=== PATIENT | male | born 1945 | race Caucasian/White ===

== ENCOUNTER 2016-07-02 05:59 | Inpatient (IN) | payer OTHER, MEDICARE ==
[2016-06-05 10:57] VITALS: BMI 33.0
--- NOTE | 2016-06-05 11:52 | PAT Medication Instructions ---
Service Date Jun 05, 2016. Current Home Medication List Albuterol Sulfate (Proair Hfa), 2 PUFFS INH QID PRN for SOB/Wheezing Atenolol (Atenolol), 1 TAB PO QAM Citalopram (Citalopram Hydrobromide), 40 MG PO QAM Clonazepam (Klonopin), 0.5 MG PO BID Dabigatran Etexilate Mesylate (Pradaxa), 150 MG PO BID Docusate Sodium (Stool Softener), 4 CAP PO HS Eye Drops (Eye Drops), 1 DROP OPB BID Ydqupfbjvxg-Oxcexqsftaf-Yzm C- (Glucosamine Chondroitin), 1 TAB PO BID Lidocaine (Lidoderm Patch 5%), 1 APPLN TOP UD Mirabegron (Myrbetriq Er), 1 TAB PO QAM Olopatadine Hcl (Patanol 0.1% Oph), 1 DROP OP BID Oxycodone HCl (Oxycodone HCl), 2 TAB PO QAM PRN for Pain Pantoprazole (Protonix), 40 MG PO QAM Simvastatin (Simvastatin), 20 MG PO QPM [Thermacare Patch ], 1 PATCH TOP UD PRN for Pain Medication Instructions For Your Scheduled Surgery Dabigatran Etexilate Mesylate (Pradaxa), 150 MG PO BID (patient will check with director enterprise data architecture for instructions) - Hold the following medications 7-10 days prior to surgery: Pduvdnjxfpe-Jvdgtxbuyep-Hkn C- (Glucosamine Chondroitin), 1 TAB PO BID - Hold the following medications the morning of surgery: Thermacare Patch 1 PATCH TOP UD PRN for Pain Mirabegron (Myrbetriq Er), 1 TAB PO QAM Lidocaine (Lidoderm Patch 5%), 1 APPLN TOP UD - Take the following medications the morning of surgery with a sip of water: Pantoprazole (Protonix), 40 MG PO QAM Oxycodone HCl (Oxycodone HCl), 2 TAB PO QAM PRN for Pain (can take up to four hours prior to surgery if needed) Olopatadine Hcl (Patanol 0.1% Oph), 1 DROP OP BID Eye Drops (Eye Drops), 1 DROP OPB BID Clonazepam (Klonopin), 0.5 MG PO BID Atenolol (Atenolol), 1 TAB PO QAM Citalopram (Citalopram Hydrobromide), 40 MG PO QAM Albuterol Sulfate (Proair Hfa), 2 PUFFS INH QID PRN for SOB/Wheezing (bring with you to hospital on day of surgery) - Take the following medications as scheduled the night before surgery: Simvastatin (Simvastatin), 20 MG PO QPM Olopatadine Hcl (Patanol 0.1% Oph), 1 DROP OP BID Eye Drops (Eye Drops), 1 DROP OPB BID Docusate Sodium (Stool Softener), 4 CAP PO HS Clonazepam (Klonopin), 0.5 MG PO BID Albuterol Sulfate (Proair Hfa), 2 PUFFS INH QID PRN for SOB/Wheezing If you have any questions please call us at [phone] or [phone] ( Karin) or [phone]
--- NOTE | 2016-06-05 12:19 | DIAGNOSTIC IMAGING REPORT ---
TWO VIEW CHEST CLINICAL HISTORY: Preoperative examination. FINDINGS: PA and lateral chest radiographs are compared to study dated 05/27/2014. The heart is top normal for projection. There is atherosclerotic calcification of the thoracic aorta. Chronic interstitial thickening is unchanged. The lungs and pleural spaces are clear. There is no pneumothorax. The skeletal structures are osteopenic. The bony thorax appears intact. Fusion hardware is noted in the lumbar spine. IMPRESSION: No active disease in the chest. Electronically signed by: Kevan Castellano M.D. 06/05/2016 12:17 PM Dictated Date/Time: 06/05/2016 12:17 PM
[2016-06-05 12:46] LABS: URINE APPEARANCE CLEAR (CLEAR); URINE BILIRUBIN NEG (NEG); URINE COLOR YELLOW; URINE NITRITE NEG (NEG); URINE PH 6.5 (4.5-7.5); URINE SPECIFIC GRAVITY 1.017 (1.000-1.030); UROBILINOGEN NEG (NEG)
[2016-06-05 12:51] LABS: MANUAL MICROSCOPIC REQUIRED? NO; REVIEW REQ? NO
--- NOTE | 2016-06-18 12:32 | HISTORY & PHYSICAL EXAMINATION ---
DATE OF ADMISSION: 06/24/2016 HISTORY OF PRESENT ILLNESS: The patient is well known to us as he has undergone prior lumbar surgery by Dr. Merida. He continues to struggle with bilateral SI joint pain. He reports right is worse than left. He did obtain a significant improvement after his SI joint injections, but has now worn off. PAST MEDICAL HISTORY: Significant for aFib, arthritis, stroke, hypertension. PAST SURGICAL HISTORY: Significant for prostate surgery and lumbar surgeries. ALLERGIES: INCLUDE CODEINE AND IVP DYE. MEDICATIONS: Not listed. SOCIAL HISTORY: He is single. Denies alcohol. Former tobacco user. FAMILY HISTORY: Significant for none listed. REVIEW OF SYSTEMS: Significant for leg swelling, weight gain, itchy, skin rash, hearing loss, constipation, difficulty walking, frequent urination. PHYSICAL EXAMINATION: VITAL SIGNS: 5 feet 4 inches, 188 pounds. HEENT: Speech appropriate. CARDIOPULMONARY: No gross abnormalities. ABDOMEN: Soft, nontender. GENITOURINARY: Deferred. NEUROLOGIC: Cranial nerves II-XII grossly intact. MUSCULOSKELETAL: He has a well-healed lumbar incision. He is exquisitely tender to palpation over the bilateral SI joints. No gross neurological deficits to the bilateral lower extremities. ASSESSMENT: Bilateral sacroiliitis, right greater than left. PLAN: At this point in time, he has had a successful trial of SI joint injections. He wants to proceed with surgical SI joint fusion. Will proceed with a right SI joint fusion as this is where most of his pain is. Risks, benefits, pros, cons, and alternatives were outlined in detail. He would like to proceed with above-mentioned surgical planning.
[2016-07-02] VITALS (8 sets, daily range): BP systolic 101–164; BP diastolic 66–95; PULSE 59–80; TEMP 36.7–37; O2SAT 92–96; Ht 162.6 cm; Wt 89.0 kg
[~2016-07-02] VITALS: Ht 162.6 cm; Wt 89.0 kg
[~2016-07-02 05:59] MED LIST: ALBU1AER9 INH; CEFAZOLIN 2000 MG/60 ML D5W 60 ML IV SCH; CITA40TA4 PO; CLON0.5T3 PO; DABI150C PO; DOCU100C PO; EYED OPB; GLUCTAB7 PO; LACTATED RINGER'S 1000ML 1,000 ML IV SCH; MIRA1TAB3 PO; NF656 TOP; OLOP0.1S3 OP; OMEG10007 PO; OXYC-609 PO; PANT1TAB48 PO; SIMV-151 PO; TNR50 PO; [UNRECOGNIZED DRUG - OTHER] TOP
[2016-07-02] MEDS ORDERED: LACTATED RINGER'S 1000ML 1,000 ML IV SCH (06:00)
[2016-07-02] MEDS ORDERED: CEFAZOLIN 2000 MG/60 ML D5W 60 ML IV SCH (06:00)
[2016-07-02] MEDS ORDERED: ATROPINE SULFATE 0.1 MG/ML 5ML SYR IV PRN (07:00)
[2016-07-02] MEDS ORDERED: EpHEDrine SULFATE INJ 50 MG/ML AMP IV PRN (07:00)
[2016-07-02] MEDS ORDERED: ONDANSETRON INJ 2 MG/ML 2 ML VIAL IV PRN ×2 (07:00→08:45)
[2016-07-02] MEDS ORDERED: LIDOCAINE HCL 2% 2 ML VIAL (20MG/ML) ONE (07:04)
[2016-07-02] MEDS ORDERED: ROCURONIUM BROMIDE 10 MG/ML 5 ML VIAL ONE ×2 (07:04→10:20)
[2016-07-02] MEDS ORDERED: MIDAZOLAM HCL 1 MG/ML 2ML VIAL ONE (07:04)
[2016-07-02] MEDS ORDERED: NEOSTIGMINE METHYLSULFATE 5 MG/5 ML SYR ONE (07:04)
[2016-07-02] MEDS ORDERED: DEXAMETHASONE SOD INJ 4 MG/ML VIAL ONE ×2 (07:04→08:30)
[2016-07-02] MEDS ORDERED: FENTANYL CITRATE INJ 50 MCG/1 ML 2 ML VIAL ONE (07:04)
[2016-07-02] MEDS ORDERED: ONDANSETRON INJ 2 MG/ML 2 ML VIAL ONE ×2 (07:04→10:26)
[2016-07-02] MEDS ORDERED: PROPOFOL IV EMULSION 10 MG/ML 20 ML VIAL IV ONE (07:04)
[2016-07-02] MEDS ORDERED: GLYCOPYRROLATE INJ 0.2 MG/ML VIAL ONE (07:04)
[2016-07-02] MEDS ORDERED: BUPIVACAINE/EPINEPHRINE 0.5% MPF 1:200,000 30 ML VIAL ONE (07:12)
[2016-07-02] MEDS ORDERED: BACITRACIN 50000 UNIT VIAL ONE (07:13)
[2016-07-02] MEDS ORDERED: ALBUT/IPRATROP 3MG/0.5MG NEB 3 ML VIAL INH PRN (07:15)
--- NOTE | 2016-07-02 07:26 | History & Physical Bridge Note ---
H&P Re-Evaluation Bridge Note: I have examined the patient, reviewed the History & Physical and in the interval since the performance of the History & Physical I have noted the following changes of clinical significance: No changes noted
--- NOTE | 2016-07-02 07:38 | History & Physical Bridge Note ---
H&P Re-Evaluation Bridge Note: I have examined the patient, reviewed the History & Physical and in the interval since the performance of the History & Physical I have noted the following changes of clinical significance: Left SI joint fusion
[2016-07-02] MEDS ORDERED: SODIUM CHLORIDE 0.9% PF 50 ML VIAL ONE (07:40)
[2016-07-02] MEDS ORDERED: EpHEDrine SULFATE 50MG/5ML SYR ONE (08:18)
[2016-07-02] MEDS ORDERED: MoRPHine SULFATE 2 MG/ML CARP ONE ×2 (08:20→10:26)
--- NOTE | 2016-07-02 08:43 | [facility] Post Operative Brief Note ---
Immediate Operative Summary Operative Date Jul 02, 2016. Pre-Operative Diagnosis Bilateral sacroiliitis Post-Operative Diagnosis Bilateral sacroiliitis Procedure(s) Performed Left sacroiliac joint fusion Surgeon Dr. Merida Varnish Melter Helper Surgeon(s) Christin Li PA-C Estimated Blood Loss 15 Findings none Specimens 0
[2016-07-02] MEDS ORDERED: DO NOT ADMINISTER FLU VACCINE PRN ×3 (08:45)
[2016-07-02] MEDS ORDERED: MAGNESIUM HYDROXIDE SUSP 30 ML UDC PO PRN (08:45)
[2016-07-02] MEDS ORDERED: LORAZEPAM INJ 1 MG in SYRINGE 0.5 ML IV PRN (08:45)
[2016-07-02] MEDS ORDERED: ALBUTEROL HFA 8 GM INHALER INH PRN (08:45)
[2016-07-02] MEDS ORDERED: DO NOT ADMINISTER PNEUMOCOCCAL VACCINE PRN ×2 (08:45)
[2016-07-02] MEDS ORDERED: HYDROmorphone INJ 1 MG/ML SYR IV PRN (08:45)
[2016-07-02] MEDS ORDERED: ACETAMINOPHEN 325 MG TAB PO PRN (08:45)
[2016-07-02] MEDS ORDERED: LORAZEPAM 1 MG TAB PO PRN (08:45)
[2016-07-02] MEDS ORDERED: ACETAMINOPHEN 500 MG TAB PO PRN (08:45)
[2016-07-02] MEDS ORDERED: DABIGATRAN ELEXILATE 75 MG CAP PO SCH (09:00)
[2016-07-02] MEDS: FENTANYL CITRATE INJ 50 MCG/1 ML 2 ML VIAL IV PRN ×4 (09:08→09:23)
--- NOTE | 2016-07-02 09:21 | DIAGNOSTIC IMAGING REPORT ---
INTRAOPERATIVE FLUOROSCOPIC SPOT IMAGES OF THE SACRUM CLINICAL HISTORY: Right SI joint fusion COMPARISON STUDY: No previous studies for comparison. FINDINGS: 3 intraoperative fluoroscopic spot images are provided for interpretation. 106 seconds of fluoroscopic time was utilized. There are postsurgical changes of an L5-S1 discectomy and interbody fusion. There are postlaminectomy changes present. There is evidence for posterior pedicle screw fixation at the L2-3 level. 3 cannulated bolts traverse the right SI joint. IMPRESSION: Right SI joint fusion utilizing 3 transverse bolts. Electronically signed by: Jamli Mclaughlin M.D. 07/02/2016 9:20 AM Dictated Date/Time: 07/02/2016 9:18 AM
--- NOTE | 2016-07-02 09:26 | Anesthesiology Progress Note ---
Anesthesia Post Op Note Date & Time Jul 02, 2016 at 09:24 Vital Signs Pain Intensity: 5.0 Vital Signs Past 12 Hours Date Time Temp Pulse Resp B/P Pulse Ox O2 Delivery O2 Flow Rate FiO2 07/02/16 09:15 64 16 128/81 99 Mask 10 07/02/16 09:05 69 16 131/76 96 Mask 10 07/02/16 08:56 36.2 74 14 140/95 98 Mask 10 07/02/16 06:20 37. 80 20 164/95 94 Room Air Notes Mental Status: alert / awake / arousable, participated in evaluation Pt Amnestic to Procedure: Yes Nausea / Vomiting: adequately controlled Pain: adequately controlled, improving with treatment Airway Patency, RR, SpO2: stable & adequate BP & HR: stable & adequate Hydration State: stable & adequate Anesthetic Complications: no major complications apparent At time of seeing patient, facemask oxygen is off and NC oxygen on with mid 90' s saturations. VSS. No complications.
[2016-07-02] MEDS ORDERED: HYDROmorphone INJ 2 MG/ML SYR/VIAL IV PRN (10:15)
[2016-07-02] MEDS: DOCUSATE SODIUM 100 MG CAP PO SCH ×2 (11:10→20:39)
[2016-07-02] MEDS: SODIUM CHLORIDE 0.9% 1000ML 1,000 ML IV SCH ×2 (11:14→20:48)
[2016-07-02] MEDS: OXYCODONE HCL IR 5 MG TAB (IMMEDIATE RELEASE) PO PRN ×3 (11:14→20:40)
[2016-07-02] MEDS ORDERED: RXC5 PO (13:13)
--- NOTE | 2016-07-02 13:13 | Discharge Instructions ---
Discharge Instructions Date of Service Jul 02, 2016. Admission Reason for Admission: SI Joint Dysfunction Discharge Discharge Diagnosis / Problem: stenosis Discharge Goals Goal(s): Improve function Activity Recommendations Activity Limitations: per Instructions/Follow-up section . Instructions / Follow-Up Instructions / Follow-Up ACTIVITY RECOMMENDATIONS: SELF CARE INSTRUCTIONS AFTER THORACIC/LUMBAR FUSIONS 1. You may walk to your tolerance. It is good exercise for your legs and back. Expect some back and intermittent leg aches and pains. 2. You may perform "counter-top" level activities (make a sandwich, markell with a project, etc.). 3. No bending or lifting of more than 10 pounds or back twisting of any nature (roll like a log when turning in bed). 4. You may ride in a car for 20-30 minutes at a time. No driving until after your first visit with your doctor. 5. Frequent changes of position and restricting sitting to 30 minutes at a time will help limit the amount of back spasms and stiffness you may experience. 6. You may discontinue the use of ambulatory aids (cane, crutches, etc.) once your strength and confidence allow. 7. You may clinical athletic instructor the shower and let water strike your incision when you arrive home at least once daily. Do not take a tub bath, sit in a hot tub or go into a swimming pool until after your first recheck in the office. SPECIAL CARE INSTRUCTIONS: VERY IMPORTANT TO READ AND REVIEW A. Your surgical incision has been closed with a cosmetic suture under the skin that will dissolve in about 6 weeks. In 14 days, you can use a pair of clean scissors and cut the suture that is left outside of the skin at the ends of your incision. 1. The small skin tapes can be removed 7 days after surgery if they have not fallen off by that point. 2. You may keep the wound open to air as much as possible to promote healing after post-op day number 5 unless told otherwise by your doctor. 3. If you think the wound looks like it is becoming infected (redness or worsening drainage) and/or you are experiencing fever, chill or worsening back pain and muscle spasms, contact the office so that we may evaluate you as soon as possible. B. Complications are uncommon, but please contact us if you have any signs or symptoms of: 1. wound infection (fever higher than 102.5 degrees F, redness, separation of wound, drainage, or increasing pain from the incision) 2. blood clots in legs (pain, swelling, redness and warmth in legs) 3. urinary tract infection (fever higher than 102.5 degrees F, burning upon urination or increased frequency of urination) 4. nerve problems (inability to walk on your toes or heels, numbness, loss of bowel or bladder control) 5. any other symptoms that concern you C. Please call the office at if you have any concerns or questions about your operation or recovery. D. No smoking! Smoking drastically decreases the chance of a solid fusion. E. Do not take any anti-inflammatory medications (Indocin, Advil, Motrin, Aspirin, Naprosyn, etc.) as these may inhibit the chance of a solid fusion. Tylenol is okay to take for pain. MANAGING PAIN AFTER SPINAL SURGERY 1. Narcotic medication is intended for short-term use and will be provided for surgical pain. Surgical pain usually lasts for a period of 4-6 weeks. Narcotic medication includes Percocet, Vicodin, Darvocet, Tylenol #3 or Lortab. 2. Longer-term pain is more appropriately treated with non-narcotic medication such as Tylenol ES. 3. Muscle spasm is not appropriately treated with narcotics. Muscle relaxers such as Soma, Flexeril or Skelaxin can be used along with Tylenol ES. 4. Remember that we all live with some "aches and pains". This is not unusual or uncommon after an injury or as we get older. a. Back pain is expected and may include muscle spasms for 4 to 6 weeks after surgery. The pain should gradually improve. If the pain worsens for no apparent reason, please contact the office. b. Intermittent leg pain may also be experienced and should not be concerned about unless it worsens for no apparent reason. If so, please contact the office. 5. We will provide appropriate medication within the normal guidelines of their prescribed use. We will also be very cautious and aware of potential abuse and extended duration of patients' medication needs. a. Pain medications are for your comfort and to assist with sleep and rest so that the tissue can heal. They are not provided in order to return to normal activity and should not be used through the day. To do so or worsening pain at night can result from ongoing tissue damage and development of tolerance to the prescribed medicine. 6. Please allow 2-3 days to process refills. Prescriptions will not be mailed but must be picked up at the office. FOLLOW UP VISIT: Keep your scheduled follow-up appointment. Any questions, please call the office at . Current Hospital Diet Patient's current hospital diet: Regular Diet Discharge Diet Recommended Diet: Regular Diet Procedures Procedures Performed: Left sacroiliac joint fusion Pending Studies Studies pending at discharge: no Medical Emergencies . Who to Call and When: Medical Emergencies: If at any time you feel your situation is an emergency, please call 911 immediately. . Non-Emergent Contact Non-Emergency issues call your: Primary Care Provider . "Provider Documentation" section prepared by Cody Merida. . VTE Core Measure Inpt VTE Proph given/why not?: Ned Cook, SCD's
--- NOTE | 2016-07-02 13:24 | OPERATIVE REPORT ---
DATE OF OPERATION: 07/02/2016 PREOPERATIVE DIAGNOSIS: Bilateral sacroiliitis. POSTOPERATIVE DIAGNOSIS: Same. PROCEDURE PERFORMED: Left SI joint fusion using Globus screws and Hali as well as local bone graft. SURGEON: Dr. Cody Merida. FIRE OPERATIONS FORESTER: Christin Li PA-C. Due to the complex nature of the procedure, the entire surgery was performed with the assistant football coach of Christin Li PA-C. The assistant product manager, under direct supervision, was involved in the actual performance of all aspects of the surgical procedure including hemostasis, tissue retraction and incision, instrument management, patient positioning, and wound closure. ANESTHESIA: General. DISPOSITION: The patient awakened and taken to PACU in stable condition. HISTORY OF PATIENT'S PROBLEMS: This is a 70-year-old male who is well known to me that has failed extensive course of nonoperative care regarding bilateral SI joint disease. Subsequently, we elected to go stabilization. He states his left side has been worse than the right for several weeks and elected to proceed with left-sided fusion today. Risks, benefits, pros, cons, and alternatives were outlined in detail preoperatively. DESCRIPTION OF PROCEDURE: The patient was met with preoperatively, the case discussed and questions were addressed. At that point, the patient was taken back to operative suite and after undergoing successful general intubation by the department of anesthesia, he was placed in a prone position on the Rolf table with a chest pad and hip bolsters. All bony prominences were well padded and the eyes were inspected to ensure there was no external pressure placed upon them. At this point, the left buttock and lateral hip was prepped and draped in normal sterile fashion. With assistance of fluoroscopy, we identified the posterior slope of the sacrum and the ala. This was marked and the patient was prepped and draped in normal sterile fashion. Approximately 3-cm incision was made along the sacral slope casa line that we had previously marked. A K-wire was passed and placed in the appropriate position, verified with inlet, outlet as well as sagittal views. The K wire was driven across the SI joint with fluoroscopic visualization and then drilled for 40-mm cannulated CLEMENTS coated slotted screw, filled locally harvested shavings as well as Hali bone grafting. This demonstrated excellent fit and solid ____ bone quality. The outrigger guide was then placed and we placed a second and third screw distal to the proximal screw again verifying our position with AP and lateral, inlet outlet views. We placed 40, 35 and 30-mm screws sequentially, proximally and distally. Again, locally harvested bone graft and Hali bone graft filled in all slots. The incision was then copiously irrigated, closed with subcutaneous Vicryl and Monocryl for final skin closure. Steri-Strips and sterile dressing placed. The patient was awakened and taken to PACU in stable condition. I attest to the content of the Intraoperative Record and any orders documented therein. Any exceptio ns are noted below.
[2016-07-02] MEDS: CEFAZOLIN IV 2,000 MG in DEXTROSE 5% 50ML 50 ML IV SCH (15:32)
[2016-07-02] MEDS: DEXAMETHASONE INJ 6 MG in SYRINGE 0 ML IV SCH (15:33)
[2016-07-02] MEDS: CLONAZEPAM 0.5 MG TAB PO SCH (20:39)
[2016-07-02] MEDS ORDERED: SIMVASTATIN 20 MG TAB PO SCH (21:00)
[2016-07-03] MEDS: DEXAMETHASONE INJ 6 MG in SYRINGE 0 ML IV SCH ×2 (00:27→07:56)
[2016-07-03] MEDS: CEFAZOLIN IV 2,000 MG in DEXTROSE 5% 50ML 50 ML IV SCH ×2 (00:27→08:08)
[2016-07-03 04:00] VITALS: BP 120/75; PULSE 64; TEMP 36.7; O2SAT 94
[2016-07-03 07:40] VITALS: BP 128/74; PULSE 67; TEMP 36.7; O2SAT 92
[2016-07-03] MEDS: DOCUSATE SODIUM 100 MG CAP PO SCH (07:56)
[2016-07-03] MEDS: CLONAZEPAM 0.5 MG TAB PO SCH (08:06)
[2016-07-03] MEDS: OXYCODONE HCL IR 5 MG TAB (IMMEDIATE RELEASE) PO PRN ×2 (08:06→16:29)
--- NOTE | 2016-07-03 08:12 | Anesthesiology Progress Note ---
Anesthesia Post Op Note Date & Time Jul 03, 2016 at 08:11 Vital Signs Pain Intensity: 3.0 Vital Signs Past 12 Hours Date Time Temp Pulse Resp B/P Pulse Ox O2 Delivery O2 Flow Rate FiO2 07/03/16 07:40 36.7 67 18 128/74 92 Room Air 07/03/16 04:00 36.7 64 18 120/75 94 Room Air 07/03/16 00:20 Room Air 07/02/16 23:31 36.7 59 20 144/80 95 Room Air 07/02/16 20:23 37.0 71 16 113/73 92 Room Air Notes Mental Status: alert / awake / arousable, participated in evaluation Pt Amnestic to Procedure: Yes Nausea / Vomiting: adequately controlled Pain: adequately controlled Airway Patency, RR, SpO2: stable & adequate BP & HR: stable & adequate Hydration State: stable & adequate Anesthetic Complications: no major complications apparent
[2016-07-03] MEDS ORDERED: NURSING VERBAL MED ORDER ONE (08:15)
[2016-07-03] MEDS ORDERED: PANTOprazole SOD 40 MG TAB PO SCH (09:00)
[2016-07-03] MEDS ORDERED: MIRABEGRON ER 25 MG TAB PO SCH (09:00)
[2016-07-03] MEDS ORDERED: CITALOPRAM 40 MG TAB PO SCH ×2 (09:00→21:00)
[2016-07-03 12:25] VITALS: BP 150/83; PULSE 68; TEMP 36.6; O2SAT 94
[2016-07-03] MEDS: SODIUM CHLORIDE 0.9% 1000ML 1,000 ML IV SCH (13:27)
[2016-07-03 13:31] VITALS: BP 150/83; PULSE 68; TEMP 36.6; O2SAT 94
[2016-07-03 14:05] VITALS: BP 142/84; PULSE 91; O2SAT 98
--- NOTE | 2016-07-03 14:56 | DISCHARGE SUMMARY ---
DATE OF DISCHARGE: 07/03/2016. PRINCIPAL DIAGNOSIS: Left sacroiliitis. HOSPITAL COURSE FOLLOWS: On 07/02/2016 the patient underwent SI joint fusion on the left, tolerated this well and taken to the orthopedic floor postoperatively. Postop day #1, he tolerated physical therapy well. Pain controlled. Subsequently discharged to [facility]. Discharge orders and instructions can be found on the chart for further review.
[2016-07-03 15:26] VITALS: BP 159/81; PULSE 70; TEMP 36.5; O2SAT 96
--- NOTE | 2016-07-03 16:05 | [facility] Post Operative Brief Note ---
Immediate Operative Summary Operative Date Jul 03, 2016. Pre-Operative Diagnosis Bilateral sacroiliitis Post-Operative Diagnosis Bilateral sacroiliitis Procedure(s) Performed Left sacroiliac joint fusion Surgeon Dr. Merida Compressor Station Chief Engineer Surgeon(s) Christin Li PA-C Estimated Blood Loss 15 Findings durotomy Specimens 0
[2016-07-04] MEDS ORDERED: BISACODYL 10 MG SUPP PR PRN (06:00)
[2016-07-04] MEDS ORDERED: BISACODYL 5 MG TABEC PO PRN (06:00)
[2016-07-04] MEDS ORDERED: POLYETHYLENE (MIRALAX) 17 GM PACK PO SCH (09:00)
[2016-11-10] MEDS ORDERED: NALO1TAB2 PO (11:07)
== END 2016-07-03 17:41 | DRG 460 ==
LOC: ENRESERVTM → ENRESERVDT → C.ACU 05:59 → C.MSW 07:00
PROVIDERS: ADMIT Orthopaedic Surgery Orthopaedic Surgery of the Spine; ATTEND Orthopaedic Surgery Orthopaedic Surgery of the Spine
PROC: 0SG80JZ Fusion of Left Sacroiliac Joint with Synthetic Substitute, Open Approach (ICD-10-PCS; principal; 2016-07-02 07:45)
DX: M46.1 Sacroiliitis, not elsewhere classified (principal); I10 Essential (primary) hypertension; I48.91 Unspecified atrial fibrillation; M19.90 Unspecified osteoarthritis, unspecified site; Z86.73 Personal history of transient ischemic attack (TIA), and cerebral infarction without residual deficits; Z87.891 Personal history of nicotine dependence; Z79.01 Long term (current) use of anticoagulants; Z79.899 Other long term (current) drug therapy; Z88.5 Allergy status to narcotic agent; Z91.041 Radiographic dye allergy status

== ENCOUNTER → 2016-12-08 | Day surgery (SDC) | payer OTHER, MEDICARE ==
[2016-11-10 11:09] VITALS: Ht 162.6 cm; Wt 84.1 kg
[~2016-12-08] VITALS: Ht 162.6 cm; Wt 84.1 kg
[~2016-12-08] MED LIST changes: +500ML BSS 0.3ML EPI 1:1000PF IRRIG ONE; +ACETAMINOPHEN 325 MG TAB PO PRN; +AMVISC PLUS 0.8ML SYRINGE INT OCU ONE; +ATROPINE SULFATE 0.1 MG/ML 5ML SYR IV PRN; +BSS FLUSH ONE; -CEFAZOLIN 2000 MG/60 ML D5W 60 ML IV SCH; -DOCU100C PO; -EYED OPB; +EpHEDrine SULFATE INJ 50 MG/ML AMP IV PRN; +EpINEphrine INJ 1MG/ML AMP 1 MG/ML AMP ONE; -GLUCTAB7 PO; -LACTATED RINGER'S 1000ML 1,000 ML IV SCH; +LACTATED RINGER'S 1000ML 500 ML IV SCH; +LIDOCAINE 3.5% OPH GEL PER APPLICATION CHARGE ONE; +LIDOCAINE HCL 1% MPF 2 ML VIAL ONE; +MIDAZOLAM HCL 1 MG/ML 2ML VIAL ONE; +NALO1TAB2 PO; +OCUCOAT 1 ML SOLN IO ONE; -OLOP0.1S3 OP; -OMEG10007 PO; +POVIDONE-IODINE OP SOLN 30 ML BTL ONE; +PROPARACAINE 0.5% OP SOLN PER DROP CHARGE OPL SCH; +TOBRAMYCIN/DEXAMETHASONE OPH OINT PER APPLN CHARGE ONE
[2016-12-08] MEDS: PHENYLEPHRINE HCL 2.5% OP SOLN PER DROP CHARGE OPL SCH ×2 (08:04→08:11)
[2016-12-08] MEDS: TROPICAMIDE 1% OP SOLN PER DROP CHARGE OPL SCH ×2 (08:05→08:12)
[2016-12-08] MEDS: CYCLOPENTOLATE HCL 1% OP SOLN PER DROP CHARGE OPL SCH ×2 (08:06→08:13)
[2016-12-08] MEDS: KETOROLAC 0.5% OP SOLN PER DROP CHARGE OPL SCH ×2 (08:07→08:14)
[2016-12-08] MEDS: GATIFLOXACIN OP SOLN PER DROP CHARGE OPL SCH ×2 (08:08→08:18)
--- NOTE | 2016-12-08 08:54 | Discharge Instructions-SurgCtr ---
Discharge Instructions Date of Service Dec 08, 2016. Visit Reason for Visit: Cataract Left Eye Discharge Discharge Diagnosis / Problem: cataract Discharge Goals Goal(s): Improve function Activity Recommendations Activity Limitations: per Instructions/Follow-up section Anesthesia . Post Anesthesia Instructions: If you have had General Anesthesia or IV Sedation: * Do not drive today. * Resume driving when surgeon permits. * Do not make important decisions or sign legal documents today. * Call surgeon for: 1. Temperature elevations greater than 101 degrees F. 2. Uncontrollable pain. 3. Excessive bleeding. 4. Persistent nausea and vomiting. 5. Medication intolerance (nausea, vomiting or rash). * For nausea and vomiting use only clear liquids such as: tea, soda, bouillon until nausea subsides, then gradually increase diet as tolerated. * If you have any concerns or questions, call your surgeon's office. If physician is unavailable and it is an emergency, call 911 or go to the nearest emergency room. . Diet Recommendations Home Diet: resume previous diet Procedures Procedures Performed: Left Cataract Phacoemulsification With Intraocular Lens Implant Pending Studies Studies pending at discharge: no Medical Emergencies . Who to Call and When: Medical Emergencies: If at any time you feel your situation is an emergency, please call 911 immediately. . Non-Emergent Contact Non-Emergency issues call your: Bit Tripoler . . "Provider Documentation" section prepared by Burak Bob. .
--- NOTE | 2016-12-08 08:54 | [facility] Operative Report ---
Operative Report Date of Service Dec 08, 2016. Operative Report 1. PREOPERATIVE DIAGNOSIS: Cataract of the left eye. 2. POSTOPERATIVE DIAGNOSIS: Same. 3. PROCEDURE: Phacoemulsification with intraocular lens implantation of the left eye. SURGEON: Dr. Burak Bob. ANESTHESIA: Topical Lidocaine gel, 1% Non- Preserved intracameral Lidocaine, and monitored intravenous sedation. INDICATIONS FOR THE PROCEDURE: The patient is a 71 - year-old male with a history of cataract of the left eye causing significant visual impairment. The details of the proposed procedure were explained to the patient who asked appropriate questions and following discussion of all risks, benefits and alternatives agreed to have the procedure done. 4. OPERATION AND FINDINGS: DESCRIPTION OF PROCEDURE: After informed consent was obtained, the patient was brought to the Operating Room at the [facility]. The patient was placed in a supine position and then the left eye was prepped and draped in the usual sterile fashion for intraocular surgery. A drop of topical Lidocaine gel was placed in the operative eye. A wire lid speculum was then placed in the fornices. A corneal paracentesis was then created temporally. The Non-Preserved Lidocaine was then instilled into the anterior chamber. The anterior chamber was then pressurized with viscoelastic. A 2.0 mm clear corneal incision was then created temporally. A cystotome was inserted into the anterior chamber and used to create a tear in the anterior lens capsule. This capsular tear was then used to create a small flap and the flap was dragged in a counterclockwise direction in order to create a continuous curvilinear capsulorrhexis. Hydrodissection was accomplished with balanced salt solution. Phacoemulsification of the lens nucleus was then performed in a standard [id number] technique. The phaco time was 21 seconds with an average power of 10 %. The remaining cortical material was removed using irrigation aspiration. The capsular bag was then filled with viscoelastic. A [employer]ch [employer] Lomb MI60L +22.0 diopters lens was then loaded into the injector and injected into the capsular bag. The remaining viscoelastic was removed with the irrigation aspiration handpiece. The wound was hydrated and then checked and found to be watertight. The intraocular pressure was checked and found to be adequate. The wire lid speculum was removed and the patient's face was cleaned and dried. TobraDex ointment was placed in the inferior fornix. The patient was discharged to the Recovery Room having tolerated the procedure well. There were no complications. The patient will be seen tomorrow in the office for follow-up. I attest to the content of the Intraoperative Record and any orders documented therein. Any exceptions are noted below.
[2016-12-08 08:55] VITALS: TEMP 36.8
--- NOTE | 2016-12-08 09:09 | Anesthesia Progress Nt - [facility] ---
Anesthesia Post Op Note Date & Time Dec 08, 2016 at 09:09 Vital Signs Pain Intensity: 0 Vital Signs Past 12 Hours Date Time Temp Pulse Resp B/P (MAP) Pulse Ox O2 Delivery O2 Flow Rate FiO2 12/08/16 07:56 37.1 52 22 121/74 (90) 92 Room Air Notes Mental Status: alert / awake / arousable, participated in evaluation Pt Amnestic to Procedure: Yes Nausea / Vomiting: adequately controlled Pain: adequately controlled Airway Patency, RR, SpO2: stable & adequate BP & HR: stable & adequate Hydration State: stable & adequate Anesthetic Complications: no major complications apparent
[2016-12-08 09:20] VITALS: BP 145/75; PULSE 53; O2SAT 95
== END | disposition home or self-care (01) ==
LOC: X.SURG 07:29
PROVIDERS: ATTEND Ophthalmology
DX: H25.9 Unspecified age-related cataract (principal); I10 Essential (primary) hypertension; E05.00 Thyrotoxicosis with diffuse goiter without thyrotoxic crisis or storm; M19.90 Unspecified osteoarthritis, unspecified site; E66.9 Obesity, unspecified

== ENCOUNTER 2017-08-04 18:08 | Emergency (ER) | payer OTHER, MEDICARE ==
[~2017-08-04] VITALS: Ht 162.6 cm; Wt 93.3 kg
[~2017-08-04 18:08] MED LIST changes: -500ML BSS 0.3ML EPI 1:1000PF IRRIG ONE; -ACETAMINOPHEN 325 MG TAB PO PRN; -AMVISC PLUS 0.8ML SYRINGE INT OCU ONE; -ATROPINE SULFATE 0.1 MG/ML 5ML SYR IV PRN; -BSS FLUSH ONE; -EpHEDrine SULFATE INJ 50 MG/ML AMP IV PRN; -EpINEphrine INJ 1MG/ML AMP 1 MG/ML AMP ONE; -LACTATED RINGER'S 1000ML 500 ML IV SCH; -LIDOCAINE 3.5% OPH GEL PER APPLICATION CHARGE ONE; -LIDOCAINE HCL 1% MPF 2 ML VIAL ONE; -MIDAZOLAM HCL 1 MG/ML 2ML VIAL ONE; -OCUCOAT 1 ML SOLN IO ONE; +PANT1TAB3 PO; -PANT1TAB48 PO; -POVIDONE-IODINE OP SOLN 30 ML BTL ONE; -PROPARACAINE 0.5% OP SOLN PER DROP CHARGE OPL SCH; -TOBRAMYCIN/DEXAMETHASONE OPH OINT PER APPLN CHARGE ONE
[2017-08-04] MEDS ORDERED: ALBUT/IPRATROP 3MG/0.5MG NEB 3 ML VIAL INH STA (18:15)
[2017-08-04 18:20] VITALS: TEMP 36.7; O2SAT 95; Ht 162.6 cm; Wt 93.3 kg
[2017-08-04 18:38] LABS: BASO % 0.4 %; BASO ABS # 0.05 K/uL (0-0.2); EOS % 1.6 %; EOS ABS # 0.19 K/uL (0-0.5); HEMATOCRIT 41.8 % (42-52); HEMOGLOBIN 14.7 g/dL (14.0-18.0); IG# 0.03 K/uL (0.00-0.02); LYMPH % 9.8 %; LYMPH ABS # 1.15 K/uL (1.2-3.4); MEAN CELL VOLUME 88.6 fL (80-100); MEAN CORPUSCULAR HEMOGLOBIN 31.1 pg (25-34); MEAN CORPUSCULAR HGB CONC 35.2 g/dl (32-36); MEAN PLATELET VOLUME 10.1 fL (7.4-10.4); MONO % 8.7 %; MONO ABS # 1.02 K/uL (0.11-0.59); NEUT % 79.2 %; NEUT ABS # 9.35 K/uL (1.4-6.5); PLATELET COUNT 247 K/uL (130-400); RED CELL DISTRIBUTION WIDTH CV 13.9 % (11.5-14.5); RED CELL DISTRIBUTION WIDTH SD 45.5 fL (36.4-46.3); WHITE BLOOD COUNT 11.79 K/uL (4.8-10.8)
[2017-08-04 18:53] LABS: PTT PATIENT 37.3 SECONDS (21.0-31.0)
--- NOTE | 2017-08-04 18:55 | DIAGNOSTIC IMAGING REPORT ---
SINGLE VIEW CHEST CLINICAL HISTORY: Dyspnea. FINDINGS: An AP, portable, upright chest radiograph is compared to study dated 06/05/2016. The examination is degraded by portable technique and apical lordotic positioning. The heart is mildly enlarged and there is atherosclerotic calcification of the thoracic aorta. The pulmonary vascular structures noncongested. The lungs and pleural spaces are clear. No pneumothorax is seen. The skeletal structures are osteopenic. The bony thorax is grossly intact. IMPRESSION: Mild cardiac enlargement with no acute cardiopulmonary abnormality. Electronically signed by: Kevan Castellano M.D. 08/04/2017 6:54 PM Dictated Date/Time: 08/04/2017 6:53 PM
[2017-08-04 19:03] LABS: ALBUMIN 3.5 gm/dl (3.4-5.0); ALKALINE PHOSPHATASE 93 U/L (45-117); ALT/SGPT 18 U/L (12-78); AST/SGOT 18 U/L (15-37); BLOOD UREA NITROGEN 16 mg/dl (7-18); CALCIUM 8.7 mg/dl (8.5-10.1); CARBON DIOXIDE 24 mmol/L (21-32); CKMB 1.1 ng/ml (0.5-3.6); CREATININE 1.89 mg/dl (0.60-1.40); GLUCOSE 124 mg/dl (70-99); POTASSIUM 4.2 mmol/L (3.5-5.1); SODIUM 134 mmol/L (136-145); TOTAL PROTEIN 8.1 gm/dl (6.4-8.2)
--- NOTE | 2017-08-04 19:14 | EMERGENCY ROOM VISIT NOTE ---
History Report prepared by Sandi: Steph Lujan Under the Supervision of: Dr. Glen Bragg D.O. First contact with patient: 18:09 Stated Complaint: SOB History of Present Illness The patient is a 71 year old male who presents to the Emergency Room with complaints of persistent SOB starting 2 days ago. The patient states that he tried using marijuana with a pipe 2 days ago for his chronic back pain. He has been feeling SOB since then. He currently has a headache. He denies any leg pain. He is on Pradaxa. He has a history of strokes. Source of History: patient Onset: 2 days ago Position: chest Quality: other (SOB) Timing: other (persistent) Associated Symptoms: + headache Note: Pt denies leg pain. Review of Systems See HPI for pertinent positives & negatives. A total of 10 systems reviewed and were otherwise negative. Past Medical & Surgical Medical Problems: (1) CVA (cerebral infarction) (2) Kidney stones (3) Lumbar stenosis with neurogenic claudication (4) Sacroiliitis Surgical Problems: (1) S/P lumbar spinal fusion Family History FHx: heart disease Social History Smoking Status: Former Smoker Marital Status: Occupation Status: retired Current/Historical Medications Scheduled Atenolol (Atenolol), 50 MG PO QAM Citalopram (Citalopram Hydrobromide), 40 MG PO QAM Clonazepam (Klonopin), 0.5 MG PO BID Dabigatran Etexilate Mesylate (Pradaxa), 150 MG PO BID Mirabegron (Myrbetriq Er), 50 MG PO QAM Pantoprazole (Protonix), 40 MG PO QAM Simvastatin (Simvastatin), 20 MG PO QAM Scheduled PRN Albuterol Sulfate (Proair Respiclick), 2 PUFFS INH QID PRN for SOB/Wheezing Lidocaine (Lidocaine), 1 PATCH TD DIRECTED PRN for Pain Oxycodone HCl (Oxycodone HCl), 2 TABS PO Q4H PRN for Pain Allergies Coded Allergies: Magnesium Sulfate (Verified Allergy, Severe, HIVES, 08/04/17) Adhesives (Verified Allergy, Intermediate, BANDAIDS- SKIN BREAKS OUT, 08/04) Codeine (Verified Allergy, Intermediate, RASH, 08/04/17) Iodinated Contrast Media (Verified Allergy, Intermediate, NOTED IVP DYE - RASH, 08/04/17) REPORTS HIS ALLERGY HAS NOT BEEN WITH TOPICAL IODINE ONLY IV Latex1 -Allergic Contact Dermititis (Verified Allergy, Intermediate, SKIN IRRITATION ?, 08/04/17) Tolterodine (Verified Allergy, Intermediate, RASH, 08/04/17) Sulfa Antibiotics (Verified Allergy, Unknown, PT DOESN'T REMEMBER REACTION , 08/04/17) Physical Exam Vital Signs Date Time Temp Pulse Resp B/P (MAP) Pulse Ox O2 Delivery O2 Flow Rate FiO2 08/04/17 19:49 81 08/04/17 18:20 95 Room Air 08/04/17 18:20 36.7 75 20 153/101 95 Room Air Physical Exam CONSTITUTIONAL/VITAL SIGNS: Reviewed / noted above. GENERAL: Non-toxic in appearance. INTEGUMENTARY: Warm, dry, and [place]. HEAD: Normocephalic. EYES: without scleral icterus or trauma. ENT/OROPHARYNX: clear and moist. LYMPHADENOPATHY/NECK: Is supple without lymphadenopathy or meningismus. RESPIRATORY: Lungs clear and equal. CARDIOVASCULAR: Regular rate and rhythm. GI/ABDOMEN: Soft and nontender. No organomegaly or pulsatile mass. No rebound or guarding. Normal bowel sounds. EXTREMITIES: Warm and well perfused. Mild peripheral pedal edema. BACK: No CVA tenderness. NEUROLOGICAL: Intact without focal deficits. PSYCHIATRIC: normal affect. MUSCULOSKELETAL: Normally developed with good muscle tone. Medical Decision & Procedures ER Provider Diagnostic Interpretation: X ray results and stated below per my interpretation and radiology interpretation. SINGLE VIEW CHEST CLINICAL HISTORY: Dyspnea. FINDINGS: An AP, portable, upright chest radiograph is compared to study dated 06/05/2016. The examination is degraded by portable technique and apical lordotic positioning. The heart is mildly enlarged and there is atherosclerotic calcification of the thoracic aorta. The pulmonary vascular structures noncongested. The lungs and pleural spaces are clear. No pneumothorax is seen. The skeletal structures are osteopenic. The bony thorax is grossly intact. IMPRESSION: Mild cardiac enlargement with no acute cardiopulmonary abnormality. Electronically signed by: Kevan Castellano M.D. 08/04/2017 6:54 PM Dictated Date/Time: 08/04/2017 6:53 PM Laboratory Results 08/04/17 17:48 Red Blood Count 4.72, Mean Corpuscular Volume 88.6, Mean Corpuscular Hemoglobin 31.1, Mean Corpuscular Hemoglobin Concent 35.2, Mean Platelet Volume 10.1, Neutrophils (%) (Auto) 79.2, Lymphocytes (%) (Auto) 9.8, Monocytes (%) (Auto) 8.7, Eosinophils (%) (Auto) 1.6, Basophils (%) (Auto) 0.4, Neutrophils # (Auto) 9.35, Lymphocytes # (Auto) 1.15, Monocytes # (Auto) 1.02, Eosinophils # (Auto) 0.19, Basophils # (Auto) 0.05 08/04/17 17:48 Test 08/04/17 17:48 White Blood Count 11.79 K/uL (4.8-10.8) Red Blood Count 4.72 M/uL (4.7-6.1) Hemoglobin 14.7 g/dL (14.0-18.0) Hematocrit 41.8 % (42-52) Mean Corpuscular Volume 88.6 fL (80-100) Mean Corpuscular Hemoglobin 31.1 pg (25-34) Mean Corpuscular Hemoglobin Concent 35.2 g/dl (32-36) Platelet Count 247 K/uL (130-400) Mean Platelet Volume 10.1 fL (7.4-10.4) Neutrophils (%) (Auto) 79.2 % Lymphocytes (%) (Auto) 9.8 % Monocytes (%) (Auto) 8.7 % Eosinophils (%) (Auto) 1.6 % Basophils (%) (Auto) 0.4 % Neutrophils # (Auto) 9.35 K/uL (1.4-6.5) Lymphocytes # (Auto) 1.15 K/uL (1.2-3.4) Monocytes # (Auto) 1.02 K/uL (0.11-0.59) Eosinophils # (Auto) 0.19 K/uL (0-0.5) Basophils # (Auto) 0.05 K/uL (0-0.2) RDW Standard Deviation 45.5 fL (36.4-46.3) RDW Coefficient of Variation 13.9 % (11.5-14.5) Immature Granulocyte % (Auto) 0.3 % Immature Granulocyte # (Auto) 0.03 K/uL (0.00-0.02) Prothrombin Time 10.8 SECONDS (9.0-12.0) Prothromb Time International Ratio 1.0 (0.9-1.1) Activated Partial Thromboplast Time 37.3 SECONDS (21.0-31.0) Partial Thromboplastin Ratio 1.4 Anion Gap 8.0 mmol/L (3-11) Est Creatinine Clear Calc Drug Dose 36.4 ml/min Estimated GFR () 40.2 Estimated GFR (Non- 34.7 BUN/Creatinine Ratio 8.6 (10-20) Calcium Level 8.7 mg/dl (8.5-10.1) Total Bilirubin 0.6 mg/dl (0.2-1) Aspartate Amino Transf (AST/SGOT) 18 U/L (15-37) Alanine Aminotransferase (ALT/SGPT) 18 U/L (12-78) Alkaline Phosphatase 93 U/L (45-117) Total Creatine Kinase 107 U/L (39-308) Creatine Kinase MB 1.1 ng/ml (0.5-3.6) Creatine Kinase MB Ratio 1.0 (0-3.0) Troponin I < 0.015 ng/ml (0-0.045) Total Protein 8.1 gm/dl (6.4-8.2) Albumin 3.5 gm/dl (3.4-5.0) Globulin 4.6 gm/dl (2.5-4.0) Albumin/Globulin Ratio 0.8 (0.9-2) Laboratory results as stated above per my review. Medications Administered Medications (Trade) Dose Ordered Sig/Barbie Route Start Time Stop Time Status Last Admin Dose Admin Albuterol/ Ipratropium (Duoneb) 3 ml NOW STAT INH 08/04/17 18:15 08/04/17 18:16 DC 08/04/17 18:55 3 ML ECG Per My Interpretation Indication: SOB/dyspnea Rate (beats per minute): 70 Rhythm: sinus rhythm Findings: 1st degree AV block, no ectopy, other (no ST elevation) ED Course 1810: Previous medical records were reviewed. The patient was evaluated in room C7. A complete history and physical examination was performed. 1814: Duoneb 3 ml INH. 1914: On reevaluation, the patient is resting comfortably. I discussed the results and findings with the patient. He verbalized agreement of the treatment plan. He was discharged home. Medical Decision Differentials considered include acute myocardial infarction, acute coronary syndrome, myocarditis, pericarditis, pericardial effusions /tamponade, esophageal perforation, pulmonary embolism, pneumonia, pneumothorax, cardiomyopathy, congestive heart, anemia, and COPD/asthma exacerbation. This is a 71-year-old male who presents to the ED with a chief complaint of shortness of breath. The patient is chronically on Pradaxa. The patient states that it felt like it was hard to breathe today. He states that he had a tickle in his chest a couple of days ago. He used marijuana for the first time on Wednesday. He states that he only inhaled it but also ingested it for back pain. He states that this did not seem to help much. The patient denies any fevers. He denies any chest pains. He is not hypoxic or febrile. His exam was normal with clear bilateral lung sounds. His EKG shows a sinus rhythm with first-degree AV block with a normal rate. Chest x-ray was negative for acute disease. CBC is unremarkable, chemistry panel was unremarkable, troponin was negative. The patient received a DuoNeb treatment. He was told the results of the test. He was felt to be stable for discharge and outpatient follow-up. Medication Reconcilliation Current Medication List: was personally reviewed by me Blood Pressure Screening Patient's blood pressure: Elevated blood pressure Blood pressure disposition: Elevated BP felt to be situational Impression Primary Impression: Dyspnea Scribe Attestation The scribe's documentation has been prepared under my direction and personally reviewed by me in its entirety. I confirm that the note above accurately reflects all work, treatment, procedures, and medical decision making performed by me. Departure Information Dispostion Home / Self-Care Referrals Ankit Mcgowan M.D. (PCP) Additional Instructions Your test results today did not show a specific cause for your symptoms. Chest x-ray did not show pneumonia, EKG and cardiac tests were unremarkable. You are not anemic. Follow-up with your doctor for further care and evaluation in 1-2 days. Return to the emergency department for worsening or new symptoms or any concerns. You have been examined and treated today on an emergency basis only. This is not a substitute for, or an effort to provide, complete comprehensive medical care. It is impossible to recognize and treat all injuries or illnesses in a single emergency department visit. It is therefore important that you follow up closely with your doctor. Call as soon as possible for an appointment.
[2017-08-04] MEDS ORDERED: LIDO1PAD2 TD (19:22)
[2017-08-04] MEDS ORDERED: ALBU18002 INH (19:22)
[2017-08-04 20:01] VITALS: BP 139/73; PULSE 79; O2SAT 94
== END 2017-08-04 20:07 | disposition home or self-care (01) ==
LOC: EDBD 18:08 → C.EDC 18:09
DX: R06.00 Dyspnea, unspecified (principal); F12.90 Cannabis use, unspecified, uncomplicated; M54.9 Dorsalgia, unspecified; G89.29 Other chronic pain; R51 Headache; Z79.01 Long term (current) use of anticoagulants; Z86.73 Personal history of transient ischemic attack (TIA), and cerebral infarction without residual deficits; Z87.442 Personal history of urinary calculi; Z98.1 Arthrodesis status; Z87.891 Personal history of nicotine dependence; Z79.899 Other long term (current) drug therapy; Z88.8 Allergy status to other drugs, medicaments and biological substances; Z88.5 Allergy status to narcotic agent; Z88.2 Allergy status to sulfonamides; Z91.048 Other nonmedicinal substance allergy status; Z91.041 Radiographic dye allergy status; Z91.040 Latex allergy status

== ENCOUNTER 2019-04-12 05:47 | Inpatient (IN) ==
--- NOTE | 2019-03-28 19:44 | PAT Medication Instructions ---
Medication Instructions Date of Service March 28, 2019 Home Medications acetaminophen 500 mg PO Q6H PRN 03/20/19 [History Confirmed 03/20/19] albuterol sulfate 1 puff INHALATION Q6H PRN 03/20/19 [History Confirmed 03/20/19] atenolol 25 mg PO QAM 03/20/19 [History Confirmed 03/20/19] cholecalciferol (vitamin D3) [Vitamin D3] 25 mcg PO QAM 03/20/19 [History Confirmed 03/20/19] citalopram 40 mg PO QAM 03/20/19 [History Confirmed 03/20/19] clonazepam 0.5 mg PO BID 03/20/19 [History Confirmed 03/20/19] dabigatran etexilate [Pradaxa] 150 mg PO BID 03/20/19 [History Confirmed 03/20/19] docusate sodium [Stool Softener] 400 mg PO QPM 03/20/19 [History Confirmed 03/20/19] [id number]-njd-efvyadfov-vitC [Glucosamine Complex-MSM] 1 cap PO BID 03/20/19 [History Confirmed 03/20/19] light mineral oil-mineral oil [Soothe XP] 1 drp OPHTHALMIC (EYE) QAM 03/20/19 [History Confirmed 03/20/19] lisinopril 10 mg PO QAM 03/20/19 [History Confirmed 03/20/19] loratadine 10 mg PO QPM 03/20/19 [History Confirmed 03/20/19] mirabegron [Myrbetriq] 50 mg PO QAM 03/20/19 [History Confirmed 03/20/19] omega-3 fatty acids-fish oil [Fish Oil] 1 cap PO QAM 03/20/19 [History Confirmed 03/20/19] oxycodone 5 mg PO DAILY PRN 03/20/19 [History Confirmed 03/20/19] polyethylene glycol 3350 [Miralax] 17 g PO QPM 03/20/19 [History Confirmed 03/20/19] ranitidine HCl 150 mg PO DAILY PRN 03/20/19 [History Confirmed 03/20/19] simvastatin 20 mg PO PM 03/20/19 [History Confirmed 03/20/19] ASK your prescriber and surgeon dabigatran etexilate [Pradaxa] 150 mg PO BID 03/20/19 [History Confirmed 03/20/19] STOP taking 2 weeks before surgery (or as soon as possible if surgery is within 2 weeks) [id number]-vky-mtpiltazq-vitC [Glucosamine Complex-MSM] 1 cap PO BID 03/20/19 [History Confirmed 03/20/19] omega-3 fatty acids-fish oil [Fish Oil] 1 cap PO QAM 03/20/19 [History Confirmed 03/20/19] DO NOT take the morning of surgery cholecalciferol (vitamin D3) [Vitamin D3] 25 mcg PO QAM 03/20/19 [History Confirmed 03/20/19] lisinopril 10 mg PO QAM 03/20/19 [History Confirmed 03/20/19] mirabegron [Myrbetriq] 50 mg PO QAM 03/20/19 [History Confirmed 03/20/19] ranitidine HCl 150 mg PO DAILY PRN 03/20/19 [History Confirmed 03/20/19] Take morning of surgery With a small sip of water, OTHERWISE NOTHING TO EAT OR DRINK AFTER MIDNIGHT: acetaminophen 500 mg PO Q6H PRN (okay to take up to 4 hours prior to surgery if needed) albuterol sulfate 1 puff INHALATION Q6H PRN (use if needed; please bring with you to hospital day of surgery if possible) atenolol 25 mg PO QAM 03/20/19 [History Confirmed 03/20/19] citalopram 40 mg PO QAM 03/20/19 [History Confirmed 03/20/19] clonazepam 0.5 mg PO BID 03/20/19 [History Confirmed 03/20/19] light mineral oil-mineral oil [Soothe XP] 1 drp OPHTHALMIC (EYE) QAM 03/20/19 [History Confirmed 03/20/19] oxycodone 5 mg PO DAILY PRN (okay to take up to 4 hours prior to surgery if needed) Take evening before surgery acetaminophen 500 mg PO Q6H PRN (if needed) albuterol sulfate 1 puff INHALATION Q6H PRN (if needed) clonazepam 0.5 mg PO BID 03/20/19 [History Confirmed 03/20/19] docusate sodium [Stool Softener] 400 mg PO QPM 03/20/19 [History Confirmed 03/20/19] loratadine 10 mg PO QPM 03/20/19 [History Confirmed 03/20/19] oxycodone 5 mg PO DAILY PRN (if needed) polyethylene glycol 3350 [Miralax] 17 g PO QPM 03/20/19 [History Confirmed 03/20/19] ranitidine HCl 150 mg PO DAILY PRN (if needed) simvastatin 20 mg PO PM 03/20/19 [History Confirmed 03/20/19] Other Notes If you have any questions please call us at [phone] or [phone] or [phone] or [phone]
--- NOTE | 2019-03-29 10:49 | Anesthesiology Consultation ---
Date of Service March 29, 2019 Assessment & Plan (1) Encounter for pre-operative examination: - Hyperkalemia: Elevated potassium 5.3 on preop labs. Awaiting response from PCP (Dr. Mcgowan). - Cardiology: 01/12/19: "History of paroxysmal Afib on chronic anticoagulation therapy. Remains in NSR.. Patient remains on Pradaxa. Per calculation from most recent BMP, creatinine clearance about 45. If < 30, will need to change anticoagulation therapy. Otherwise stable cardiac symptoms." F/U 1 year recomme nded. GFR on preop labs 03/29/19 still above 30 (GFR 34.9). - Pradaxa instructions per surgeon/prescriber. Chart Review Chart Review: Patient seen in Pre Admission Testing Teaching & Discussion Pre-Anesthesia Teaching/Discussion Notes: Instructed NPO after midnight before surgery,except medications with 15 cc of water. Medication instructions provided according to the PAT guidelines. History Surgery Operation Date: 04/12/19 07:45 Proposed Procedures p Right Sacroiliac Joint Fusion - Cody Merida DO Height/Weight Height: 5 ft 4 in Weight: 85.6 kg Allergies Allergy/AdvReac Type Severity Reaction Status Date / Time magnesium sulfate Allergy Severe HIVES Verified 03/20/19 12:25 adhesive Allergy Intermediate BANDAIDS- Verified 03/20/19 12:25 SKIN BREAKS OUT codeine Allergy Intermediate RASH Verified 03/20/19 12:25 Iodinated Contrast Media Allergy Intermediate NOTED Verified 03/20/19 12:25 IVP DYE - RASH latex Allergy Intermediate SKIN Verified 03/20/19 12:25 IRRITATION tolterodine Allergy Intermediate RASH Verified 03/20/19 12:25 Sulfa (Sulfonamide Allergy Unknown UNKNOWN Verified 03/29/19 11:10 Antibiotics) REACTION Medications Home Medications Medication Instructions Recorded Confirmed Last Taken acetaminophen 500 mg PO Q6H PRN 03/20/19 03/20/19 Unknown albuterol sulfate 1 puff INHALATION Q6H PRN 03/20/19 03/20/19 Unknown atenolol 25 mg PO QAM 03/20/19 03/20/19 Unknown cholecalciferol (vitamin D3) 25 mcg PO QAM 03/20/19 03/20/19 Unknown [Vitamin D3] citalopram 40 mg PO QAM 03/20/19 03/20/19 Unknown clonazepam 0.5 mg PO BID 03/20/19 03/20/19 Unknown dabigatran etexilate [Pradaxa] 150 mg PO BID 03/20/19 03/20/19 Unknown docusate sodium [Stool Softener] 400 mg PO QPM 03/20/19 03/20/19 Unknown ckfrlxqnsbi-pmq-vewsowldg-vitC 1 cap PO BID 03/20/19 03/20/19 Unknown [Glucosamine Complex-MSM] light mineral oil-mineral oil 1 drp OPHTHALMIC (EYE) QAM 03/20/19 03/20/19 Unknown [Soothe XP] lisinopril 10 mg PO QAM 03/20/19 03/20/19 Unknown loratadine 10 mg PO QPM 03/20/19 03/20/19 Unknown mirabegron [Myrbetriq] 50 mg PO QAM 03/20/19 03/20/19 Unknown omega-3 fatty acids-fish oil [Fish 1 cap PO QAM 03/20/19 03/20/19 Unknown Oil] oxycodone 5 mg PO DAILY PRN 03/20/19 03/20/19 Unknown polyethylene glycol 3350 [Miralax] 17 g PO QPM 03/20/19 03/20/19 Unknown ranitidine HCl 150 mg PO DAILY PRN 03/20/19 03/20/19 Unknown simvastatin 20 mg PO PM 03/20/19 03/20/19 Unknown Past Medical History Medical History (Updated 03/29/19 @ 15:38 by Verito Gutierrez) Atrial fibrillation Carotid artery stenosis <50% B/L ICA stenosis per 01/2018 carotid imaging Chronic constipation CKD (chronic kidney disease) creatinine baseline in the 1.6-1.9 range per chart review GERD (gastroesophageal reflux disease) controlled History of kidney stones Hypertension Nocturia Obesity Spinal stenosis Stroke multiple, most 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 (per cardiology note, hx 1997, 2000)- no residual effects Exercise / Class Metabolic Activity III < 4 Walking/Shop/Light housework (WALKER PRN) Past Surgical History Surgical History History of back surgery Hx of cervical spine surgery Hx of cystoscopy FOR STONE REMOVAL Hx of lithotripsy Past Anesthesia History No Hx of Anesthesia Complications and No Family Hx of Anesthesia Complications History of PONV No Hx of PONV and No Hx of Motion Sickness Social History Smoking Status: Former smoker Do You Dip or Chew Tobacco: No Smoking End Date: Quit 4+ YR AGO Hx Alcohol Use: No Hx Substance Use: No Review of Systems Reflux controlled. Patient denies chest pain, shortness of breath, cough, wheezing, palpitations. Physical Exam Vital Signs VITALS BP 124/81 P 58 TEMP 98.0 SP02 96%RA RESP 18 PHYSICAL Full neck and c-spine range of motion. Full TMJ range of motion. TMD 3.5 finger breaths Mallampati Score 2 Dentition: several missing molars on lower, upper full plate Lungs: clear throughout to auscultation Cardiac: regular rate and rhythm, no murmurs noted Spine: normal Carotid arteries: negative bruit Extremities: no edema Testing Laboratory Results 03/29/19 11:06 03/29/19 11:06 PT 11.4 Seconds (9.0-12.0) 03/29/19 11:06 INR 1.1 (0.9-1.1) 03/29/19 11:06 APTT 38.3 Seconds (21.0-31.0) H 03/29/19 11:06 Urine Color Yellow 03/29/19 11:06 Urine Appearance Clear (Clear) 03/29/19 11:06 Urine pH 5.5 (4.5-7.5) 03/29/19 11:06 Ur Specific [place] 1.007 (1.000-1.030) 03/29/19 11:06 Urine Protein 1+ (Negative) H 03/29/19 11:06 Urine Glucose (UA) Negative (Negative) 03/29/19 11:06 Urine Ketones Negative (Negative) 03/29/19 11:06 Urine Nitrite Negative (Negative) 03/29/19 11:06 Ur Leukocyte Esterase Negative (Negative) 03/29/19 11:06 Urine WBC (Auto) 1-5 /hpf (0-5) 03/29/19 11:06 Urine RBC (Auto) 0-4 /hpf (0-4) 03/29/19 11:06 U Hyaline Cast (Auto) 0 /lpf (0-5) 03/29/19 11:06 U Epithel Cells (Auto) 0-5 /lpf (0-5) 03/29/19 11:06 Urine Bacteria (Auto) Negative (Negative) 03/29/19 11:06 Blood Type A Negative 03/29/19 11:06 Antibody Screen NEGATIVE 03/29/19 11:06 Electrocardiogram Date: 01/12/19 SB with first degree AVB at 55bpm. Otherwise "normal" ECG. Chest X-Ray Date: 03/29/19 Cardiomediastinal and hilar silhouettes are within normal limits. Calcified plaque of the thoracic aortic arch. There is no pneumothorax, pleural effusion, focal airspace consolidation or overt pulmonary edema. Degenerative changes of the shoulders and spine. Partially imaged lumbar spinal fusion hardware. IMPRESSION: No acute process Echocardiogram Date: 06/12/16 EF 60-65%. No RWMA. Grade I DD. Mild cLVH. No significant valvular disease. Other Testing Carotid artery duplex: 01/14/18: The right vertebral artery demonstrates antegrade flow. The left vertebral artery demonstrates antegrade flow. Right carotid artery duplex examination indicates evidence of less than 50% stenosis of the internal carotid artery. Left carotid artery duplex examination indicates evidence of less than 50% stenosis of the internal carotid artery.
--- NOTE | 2019-03-29 11:26 | XRay Report ---
XR chest Pre-admission PA/Lat HISTORY: 73 years-old Male pat preoperative exam. No acute chest complaints COMPARISON: Chest radiograph 08/04/2017 TECHNIQUE: PA and lateral views of the chest FINDINGS: Cardiomediastinal and hilar silhouettes are within normal limits. Calcified plaque of the thoracic ao rtic arch. There is no pneumothorax, pleural effusion, focal airspace consolidation or overt pulmonar y edema. Degenerative changes of the shoulders and spine. Partially imaged lumbar spinal fusion hardw are. IMPRESSION: No acute process. ACT 112: Negative or not required by law. The above report was generated using voice recognition software. It may contain grammatical, syntax o r spelling errors. Electronically signed by: Patricio Booker M.D. 03/29/2019 11:25 AM
[2019-03-29 12:35] LABS: Basophils # (auto) 0.04 K/uL (0-0.2); Basophils % (auto) 0.5 %; Eosinophils # (auto) 0.19 K/uL (0-0.5); Eosinophils % (auto) 2.5 %; Hematocrit (blood only) 42.7 % (42-52); Hemoglobin 14.6 g/dL (14.0-18.0); Immature Granulocytes # (auto) 0.02 K/uL (0.00-0.02); Immature Granulocytes % (auto) 0.3 %; Lymphocytes % (auto) 26.5 %; Mean Corpuscular Hemoglobin 31.1 pg (25-34); Mean Corpuscular Hgb Conc 34.2 g/dL (32-36); Mean Corpuscular Volume 90.9 fL (80-100); Mean Platelet Volume 10.2 fL (7.4-10.4); Monocytes # (auto) 0.79 K/uL (0.11-0.59); Monocytes % (auto) 10.5 %; Neutrophils # (auto) 4.51 K/uL (1.4-6.5); Neutrophils % (auto) 59.7 %; Platelet Count 295 K/uL (130-400); RDW Coefficient of Variation 14.5 % (11.5-14.5); RDW Standard Deviation 48.9 fL (36.4-46.3); White Blood Count 7.55 K/uL (4.8-10.8)
[2019-03-29 12:40] LABS: Appearance Urine Clear (Clear); Bacteria Urine Automated Negative (Negative); Bilirubin Urine Negative (Negative); Blood Urine 1+ (Negative); Cast Urine Automated 0 /lpf (0-5); Color Urine Yellow; Epithelial Cell Urine Auto 0-5 /lpf (0-5); Glucose Urine UA Negative (Negative); Ketones Urine Negative (Negative); Leukocyte Esterase Urine Negative (Negative); Nitrite Urine Negative (Negative); Protein Urine 1+ (Negative); RBC Urine Automated 0-4 /hpf (0-4); Specific Gravity Urine 1.007 (1.000-1.030); Urobilinogen Urine Negative (Negative); pH Urine 5.5 (4.5-7.5)
[2019-03-29 12:47] LABS: INR 1.1 (0.9-1.1); Partial Thromboplastin Ratio 1.4; Partial Thromboplastin Time 38.3 Seconds (21.0-31.0); Prothrombin Time 11.4 Seconds (9.0-12.0)
[2019-03-29 12:51] LABS: BUN Creatinine Ratio 10.3 (10-20); Calcium 9.3 mg/dl (8.5-10.1); Creatinine Clr Calc Pharmacy 34.4 ml/min; Est GFR (African American) 40.4; Est GFR (Non-African American) 34.9; Potassium 5.3 mmol/L (3.5-5.1)
[2019-04-12] MEDS ORDERED: CEFAZOLIN 2000MG 2,000 MG/15 ML SYR IV SCH (06:00)
[2019-04-12] MEDS ORDERED: LR 15ML/HR IV SCH (06:00)
[2019-04-12] MEDS ORDERED: GABAPENTIN 300 MG CAP PO SCH (06:00)
[2019-04-12] MEDS ORDERED: CLINDAMYCIN 600 MG/54 ML BAG IV SCH (06:00)
[2019-04-12] MEDS ORDERED: fentaNYL citrate 100 MCG/2 ML VIAL ONE (06:47)
[2019-04-12] MEDS ORDERED: BACITRACIN INJ 50,000 UNIT VIAL ONE (07:27)
[2019-04-12] MEDS ORDERED: BUPIVACAINE 0.5 % 5 MG/1 ML MPF 30ML VIAL ONE (07:27)
[2019-04-12] MEDS ORDERED: BUPIVACAINE/EPINEPHRINE 0.25% 1:200,000 30 ML VIAL ONE (07:31)
--- NOTE | 2019-04-12 07:31 | History & Physical Report ---
Date of Service April 12, 2019 Assessment & Plan (1) Sacroiliitis: Right sacroiliac joint fusion Present on Admission?: Yes History of Present Illness Chief Complaint: Right SI joint pain Primary Care Provider: Ankit Mcgowan MD This is a 73-year-old male well-known to me the presents with chronic persistent sacroiliitis. After failing extensive course of nonoperative care is here for surgical intervention. Allergies Allergy/AdvReac Type Severity Reaction Status Date / Time magnesium sulfate Allergy Severe HIVES Verified 04/12/19 06:32 adhesive Allergy Intermediate BANDAIDS- Verified 04/12/19 06:32 SKIN BREAKS OUT codeine Allergy Intermediate RASH Verified 04/12/19 06:32 Iodinated Contrast Media Allergy Intermediate NOTED Verified 04/12/19 06:32 IVP DYE - RASH latex Allergy Intermediate SKIN Verified 04/12/19 06:32 IRRITATION tolterodine Allergy Intermediate RASH Verified 04/12/19 06:32 Sulfa (Sulfonamide Allergy Unknown UNKNOWN Verified 04/12/19 06:32 Antibiotics) REACTION amoxicillin Allergy Pruritus Verified 04/12/19 06:32 Home Medications Home Medications Medication Instructions Recorded Confirmed Type acetaminophen 500 mg PO Q6H PRN 03/20/19 04/12/19 History albuterol sulfate 1 puff INHALATION Q6H PRN 03/20/19 04/12/19 History atenolol 25 mg PO QAM 03/20/19 03/20/19 History cholecalciferol (vitamin D3) 25 mcg PO QAM 03/20/19 04/12/19 History [Vitamin D3] citalopram 40 mg PO QAM 03/20/19 03/20/19 History clonazepam 0.5 mg PO BID 03/20/19 03/20/19 History dabigatran etexilate [Pradaxa] 150 mg PO BID 03/20/19 04/12/19 History docusate sodium [Stool Softener] 400 mg PO QPM 03/20/19 04/12/19 History light mineral oil-mineral oil 1 drp OPHTHALMIC (EYE) QAM 03/20/19 04/12/19 History [Soothe XP] lisinopril 10 mg PO QAM 03/20/19 03/20/19 History mirabegron [Myrbetriq] 50 mg PO QAM 03/20/19 03/20/19 History omega-3 fatty acids-fish oil [Fish 1 cap PO QAM 03/20/19 04/12/19 History Oil] oxycodone 5 mg PO DAILY PRN 03/20/19 04/12/19 History polyethylene glycol 3350 [Miralax] 17 g PO QPM 03/20/19 04/12/19 History ranitidine HCl 150 mg PO DAILY PRN 03/20/19 04/12/19 History simvastatin 20 mg PO PM 03/20/19 04/12/19 History Glucosamine Chondroitin 1 cap PO BID 03/30/19 03/30/19 History doxycycline hyclate 1 tab PO BID 04/10/19 04/10/19 History Past Med/Surg History Social History Preferred Language: Latvian Communication Ability: Effective Beliefs That Will Affect Care: None Current Living Situation: Alone Current Living Situation Comment: HAS HUSBANDRY PERSON Feels Safe at Home: Yes Smoking Status: Former smoker Do You Dip or Chew Tobacco: No ; Smoking End Date: Quit 4+ YR AGO ; Second Hand Exposure: No ; Hx Alcohol Use: No Hx Substance Use: No Physical Exam Physical Exam: Patient is alert and oriented neurologically intact. Results & Data Vital Signs (Past 12 Hours) Vital Signs Temp Pulse Resp BP Pulse Ox 04/12/19 06:16 36.5 C 54 L 20 133/83 97
--- NOTE | 2019-04-12 07:31 | History & Physical Bridge Note ---
Date of Service April 12, 2019 History & Physical Bridge Note I have examined the patient, reviewed the History & Physical and in the interval since the performance of the History & Physical I have noted the following changes of clinical significance: no changes noted
[2019-04-12] MEDS ORDERED: ePHEDrine sulfate 50 MG/ML AMP IV PRN (07:34)
[2019-04-12] MEDS ORDERED: ATROPINE SULFATE 0.1 MG/ML 10ML SYR IV PRN (07:34)
[2019-04-12] MEDS ORDERED: ONDANSETRON INJ 2 MG/ML 2 ML VIAL IV PRN ×2 (07:34→10:54)
[2019-04-12] MEDS ORDERED: DEXAMETHASONE SOD INJ 4 MG/ML VIAL ONE (08:19)
[2019-04-12] MEDS ORDERED: PHENYLEPHRINE 100MCG/ML 5ML SYR ONE (08:19)
[2019-04-12] MEDS ORDERED: ONDANSETRON INJ 2 MG/ML 2 ML VIAL ONE (08:19)
[2019-04-12] MEDS ORDERED: NEOSTIGMINE METHYLSULFATE 1 MG/ML 10ML VIAL ONE (08:19)
[2019-04-12] MEDS ORDERED: GLYCOPYRROLATE 0.2 MG/ML VIAL ONE (08:19)
[2019-04-12] MEDS ORDERED: ROCURONIUM BROMIDE 10 MG/ML 5 ML VIAL ONE (08:19)
[2019-04-12] MEDS ORDERED: LIDOCAINE HCL 2% 2 ML VIAL/AMP(20MG/ML) INFIL ONE (08:19)
[2019-04-12] MEDS ORDERED: ePHEDrine sulfate 50 MG/ML SYR ONE (08:19)
[2019-04-12] MEDS ORDERED: PROPOFOL IV EMULSION 10 MG/ML 20 ML VIAL IV ONE (08:19)
[2019-04-12] MEDS ORDERED: FLOSEAL HEMOSTATIC MATRIX 10ML TOP ONE (08:31)
--- NOTE | 2019-04-12 08:51 | Operative Report ---
Post Operative Report Pre & Post Diagnosis Operation Date: 04/12/19 07:45 Pre-Op Diagnosis: SI Joint Dysfunction, Sacroiliitis Post-Op Diagnosis: SI Joint Dysfunction, Sacroiliitis I identified the patient and participated in the time-out.: Yes Procedure Operation Date: 04/12/19 07:45 Actual Procedures #1 open fusion right SI joint. #2 placement of 3 percutaneous screws to the right SI joint. #3 placement of 20 mm bone allograft filled with infuse collagen sponge into the right SI joint. Surgeon Cody Merida, DO Technical Operations Manager Christin Monk Estimated Blood Loss 25 Findings Consistent with Post-Op Diagnosis Specimens None Indications This is a 73-year-old male well-known to me that presents with worsening progressive right SI joint dysfunction and subsequently here for surgical intervention. Description of Procedure Patient was met with identified informed consent obtained. Patient was then taken to the operative suite underwent an patient placed in a prone position the Rolf table chest padded bolsters. All bony prominences well-padded eyes inspected to ensure no external pressure placed upon. This point the right upper buttock was prepped and draped in a sterile fashion. With the assistance of fluoroscopy identified the right SI joint created a 3 cm incision directly over the joint and dissected down to the joint. And then placed a joint slag wheeler within the joint verified my position with fluoroscopy. Then placed a cannula over the slag wheeler and curetted out the SI joints. After this was complete I placed a 20 mm bony allograft filled with infuse collagen sponge directly within the SI joint. After this was tapped in position the working cannula was removed and a placed a second incision along the right upper buttock in line with the posterior sacral slope. Sharp dissection was performed to the skin and a guidewire placed into the proximal portion of the SI joint verifying position and inlet outlet views as well as lateral views. I then used dilators up to 10 mm tube and drilled across the SI joint. I then placed a 50 mm CLEMENTS- coated slotted screw filled with infuse collagen sponge and local autograft across the SI joint. I got outrigger guide was then used for second distal screw placed in a similar fashion the screw was 45 mm in length again CLEMENTS-coated slotted filled with local autograft and infuse collagen sponge. A third screw was placed in a similar fashion the screw was 35 mm in length CLEMENTS-coated slotted filled with local autograft. All screws demonstrated excellent purchase and alignment. Incision was then copiously irrigated closed with subcutaneous Vicryl and Monocryl for final skin closure. Patient was then awakened taken to PACU in stable condition. Please note Christin Monk present at the entire procedure involved the patient positioning complex portions of the surgery and final skin closure. I attest to the content of the Intraoperative Record and any orders documented therein. Any exceptions are noted below.
[2019-04-12] MEDS: fentaNYL citrate 100 MCG/2 ML VIAL IV PRN ×2 (09:34→09:41)
--- NOTE | 2019-04-12 09:51 | Fluoroscopy Report ---
FL sacrum HISTORY: 73 years-old Male RT SACROILLIAC JOINT FUSION COMPARISON: Fluoroscopic images of the sacrum 07/02/2016 TECHNIQUE: 3 spot fluoroscopic images of the left sacroiliac joint were obtained utilizing 105.9 seco nds fluoroscopy time FINDINGS: There are 3 large cannulated iliac bolts projected over the left SI joint. The bones appear to be int act. Subchondral sclerosis of the left SI joint. Partially imaged fusion hardware of the lumbar spine with lumbosacral discectomy changes. The lateral image demonstrates bilateral sacral iliac bolts. No acute fracture identified. IMPRESSION: Fluoroscopic assistance as above. Please see operative report for further details. ACT 112: Negative or not required by law. The above report was generated using voice recognition software. It may contain grammatical, syntax o r spelling errors. Electronically signed by: Patricio Booker M.D. 04/12/2019 9:50 AM
--- NOTE | 2019-04-12 09:56 | Anesthesiology Progress Note ---
Date of Service April 12, 2019 Anesthesia Post Procedure Vital Signs Vital Signs: Temp Pulse Pulse Resp BP Pulse Ox 04/12/19 09:45 59 L 16 102/68 94 04/12/19 09:35 59 L 21 119/71 97 04/12/19 09:25 56 L 14 107/69 98 04/12/19 09:15 65 12 132/78 99 04/12/19 09:08 98.1 F 66 14 125/71 98 04/12/19 06:16 97.7 F 54 L 20 133/83 97 Pain Intensity Lower Back: Pain Intensity: 5 Transfer of Care Handoff Completed per policy Notes Mental Status: alert / awake / arousable and participated in evaluation Patient Amnestic to Procedure: Yes Nausea / Vomiting: adequately controlled Pain: adequately controlled Airway Patency, RR, SpO2: stable & adequate BP & HR: stable & adequate Hydration State: stable & adequate Anesthetic Complications: no major complications apparent and Pt Satisfied with anesthetic care
[2019-04-12] MEDS ORDERED: NON-FORMULARY MEDICATION (Doxycycline Hyclate 1 TAB) PO SCH (10:54)
[2019-04-12] MEDS ORDERED: PROMETHAZINE HCL 12.5 MG in SODIUM CHLORIDE 0.9% 50 ML IV PRN (10:54)
[2019-04-12] MEDS ORDERED: HYDROmorphone INJ 1 MG/ML SYRINGE IV PRN (10:54)
[2019-04-12] MEDS ORDERED: SOD PHOSPHATE/SOD BIPHOSPHATE ENEMA 132 ML BTL PR PRN (10:54)
[2019-04-12] MEDS ORDERED: DO NOT ADMINISTER FLU VACCINE PRN (10:54)
[2019-04-12] MEDS ORDERED: METOCLOPRAMIDE HCL INJ 5 MG/ML 2 ML VIAL IV PRN (10:54)
[2019-04-12] MEDS ORDERED: FAMOTIDINE 20 MG TAB PO PRN (10:54)
[2019-04-12] MEDS ORDERED: MAGNESIUM HYDROXIDE SUSP 30 ML UDC PO PRN (10:54)
[2019-04-12] MEDS ORDERED: LORazepam 0.5 MG TAB PO PRN (10:54)
[2019-04-12] MEDS ORDERED: ALUMINUM/MAGNESIUM SUSP 30 ML UDC PO PRN (10:54)
[2019-04-12] MEDS ORDERED: ACETAMINOPHEN 1,000 MG/100 ML VIAL IV PRN (10:54)
[2019-04-12] MEDS ORDERED: ONDANSETRON 4 MG OD TAB PO PRN (10:54)
[2019-04-12] MEDS ORDERED: HYDROmorphone INJ 0.5 MG/0.5 ML SYR IV PRN (10:54)
[2019-04-12] MEDS ORDERED: LORazepam 0.5 MG/1 ML VIAL IV PRN (10:54)
[2019-04-12] MEDS ORDERED: ACETAMINOPHEN 500 MG TAB PO PRN ×2 (10:54)
[2019-04-12] MEDS ORDERED: DO NOT ADMINISTER PNEUMOCOCCAL VACCINE PRN (10:54)
[2019-04-12] MEDS ORDERED: bisacodyL 10 MG SUPP PR PRN (10:54)
[2019-04-12] MEDS ORDERED: NALOXONE HCL 0.4 MG/1 ML VIAL/CARP IV PRN (10:54)
[2019-04-12] MEDS ORDERED: ALBUTEROL HFA 8 GM INHALER INH PRN (10:54)
[2019-04-12] MEDS ORDERED: lisinopriL 10 MG TAB PO SCH (10:54)
--- NOTE | 2019-04-12 11:32 | Internal Medicine Consult Note ---
Date of Consultation April 12, 2019 Assessment & Plan (1) Sacroiliitis: -This is a patient with reported history of stroke several years ago and on Pradaxa 150 mg BID at home for stroke risk prevention and as per her family member, patient had more progressing weakness of the right leg when walking as if the right leg would give out and on 04/12/[address] Merida for sacroiliac joint dysfunction/sacroiliitis and the primary focus of the operation is of the right sacroiliac joint (#1. open fusion right SI joint. #2 placement of 3 percutaneous screws to the right SI joint. #3 placement of 20 mm bone allograft filled with infuse collagen sponge into the right SI joint). -Hospitalist medicine is consulted for medical management, Dr. Merida and his surgical team are the primary service -04/12/2019: On exam at bedside which is somewhat limited by patient being on the bed post-operatively, patient did not appear to have gross motor deficits. Patient on nasal cannula oxygen currently, saturating well, and reports history of asthma. No wheezing on lung exam. Good breath sounds. Patient does not have chest pain, or abdomen pain, or nausea. Nurse to give Benadryl because patient keeps trying to rub his hands because he feels itchy. -prn pain medications, prn anti-emetics -patient has received antibiotics of cefazolin because of the surgery on this admission. There is no further role for outpatient Doxycycline at this time as patient had already complete a 5 days for sore throat. throat infections are commonly not bacterial in nature and patient currently does not have any further throat symptoms. -PT/OT -SCDs currently as DVT prophylaxis, pharmacological post-operative DVT as per orthopedics (2) History of stroke: -Pradaxa 150 mg BID at home for stroke risk prevention -pharmacological post-operative DVT as per orthopedics when bleeding risk post- op is deemed to be low by orthopedic service (3) Hypertension: -continue home simvastatin 20 mg daily -continue home dose atenolol 25 mg daily -lisinopril 10 mg daily home medication can be resumed on 04/13/2019 if serum potassium is 4 or less (4) Anxiety: -currently mood is stable -continue home dose clonazepam , citalopram (5) H/O skin pruritus: -patient apparently easily gets pruritus, his medication allergies associate with itching -Allergies include allergy reaction to amoxicillin when prescribed by his outpatient doctor for sore throat as patient correlates taking amoxicillin to rash and pruritus -patient was persisting rubbing his hands when seen by hospitalist doctor on 04/12/2019 post-op evaluation. No erythema of the hands. Patient to get Benadryl Overactive Bladder -continue home dose Mirabegron History of asthma -no current asthma excerbation -patient uses albuterol at home on prn basis Do Not Resuscitate and Do Not Intubate (DNR/DNI) as per my discussion with patient and patient's daughter Maureen Savage ([phone]) at the bedside My hospitalist colleague will be following the patient as medicine consult starting on 04/13/2019 History of Present Illness Reason for Consultation: "Medical Management" Requesting Physician: Dr. Merida Attending Physician: Cody Merida, DO History of Present Illness This is a patient with reported history of stroke several years ago and on Pradaxa 150 mg BID at home for stroke risk prevention and as per her family member, patient had more progressing weakness of the right leg when walking as if the right leg would give out and on 04/12/[address] Merida for sacroiliac joint dysfunction/sacroiliitis and the primary focus of the operation is of the right sacroiliac joint (#1. open fusion right SI joint. #2 placement of 3 percutaneous screws to the right SI joint. #3 placement of 20 mm bone allograft filled with infuse collagen sponge into the right SI joint). On exam at bedside which is somewhat limited by patient being on the bed post- operatively, patient did not appear to have gross motor deficits. Patient on nasal cannula oxygen currently, saturating well, and reports history of asthma. No wheezing on lung exam. Good breath sounds. Patient does not have chest pain, or abdomen pain, or nausea. Nurse to give Benadryl because patient keeps trying to rub his hands because he feels itchy. Allergies: Patient reports that recently he had allergy reaction to amoxicillin when prescribed by his outpatient doctor for sore throat as patient correlates taking amoxicillin to rash and pruritus Family History: patient denies family history of health - also specifically denying family history of diabetes or family history of hypertension Do Not Resuscitate and Do Not Intubate (DNR/DNI) as per my discussion with patient and patient's daughter Maureen Savage ([phone]) at the bedside Allergies Allergy/AdvReac Type Severity Reaction Status Date / Time magnesium sulfate Allergy Severe HIVES Verified 04/12/19 06:32 adhesive Allergy Intermediate BANDAIDS- Verified 04/12/19 06:32 SKIN BREAKS OUT codeine Allergy Intermediate RASH Verified 04/12/19 06:32 Iodinated Contrast Media Allergy Intermediate NOTED Verified 04/12/19 06:32 IVP DYE - RASH latex Allergy Intermediate SKIN Verified 04/12/19 06:32 IRRITATION tolterodine Allergy Intermediate RASH Verified 04/12/19 06:32 Sulfa (Sulfonamide Allergy Unknown UNKNOWN Verified 04/12/19 06:32 Antibiotics) REACTION amoxicillin Allergy Pruritus Verified 04/12/19 06:32 Home Medications Home Medications Medication Instructions Recorded Confirmed Type acetaminophen 500 mg PO Q6H PRN 03/20/19 04/12/19 History albuterol sulfate 1 puff INHALATION Q6H PRN 03/20/19 04/12/19 History atenolol 25 mg PO QAM 03/20/19 03/20/19 History cholecalciferol (vitamin D3) 25 mcg PO QAM 03/20/19 04/12/19 History [Vitamin D3] citalopram 40 mg PO QAM 03/20/19 03/20/19 History clonazepam 0.5 mg PO BID 03/20/19 03/20/19 History dabigatran etexilate [Pradaxa] 150 mg PO BID 03/20/19 04/12/19 History docusate sodium [Stool Softener] 400 mg PO QPM 03/20/19 04/12/19 History light mineral oil-mineral oil 1 drp OPHTHALMIC (EYE) QAM 03/20/19 04/12/19 History [Soothe XP] lisinopril 10 mg PO QAM 03/20/19 03/20/19 History mirabegron [Myrbetriq] 50 mg PO QAM 03/20/19 03/20/19 History omega-3 fatty acids-fish oil [Fish 1 cap PO QAM 03/20/19 04/12/19 History Oil] oxycodone 5 mg PO DAILY PRN 03/20/19 04/12/19 History polyethylene glycol 3350 [Miralax] 17 g PO QPM 03/20/19 04/12/19 History ranitidine HCl 150 mg PO DAILY PRN 03/20/19 04/12/19 History simvastatin 20 mg PO PM 03/20/19 04/12/19 History Glucosamine Chondroitin 1 cap PO BID 03/30/19 03/30/19 History doxycycline hyclate 1 tab PO BID 04/10/19 04/10/19 History Patient History Social History Preferred Language: Dutch Communication Ability: Effective Beliefs That Will Affect Care: None Current Living Situation: Alone Current Living Situation Comment: 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 Safe at Home: Yes Smoking Status: Former smoker Do You Dip or Chew Tobacco: No ; Smoking End Date: Quit 4+ YR AGO ; Second Hand Exposure: No ; Hx Alcohol Use: No Hx Substance Use: No Review of Systems Review of Systems: All systems reviewed & are unremarkable except as noted in HPI & below Physical Exam Constitutional: comfortable Eyes: PERRL, conjunctivae normal, anicteric sclerae EOM intact bilaterally ENMT: external ear and nose normal, oropharynx normal has nasal cannula Neck: normal visual inspection Respiratory: normal respiratory effort, lungs clear to auscultation Cardiovascular: Rate/Rhythm: regular rate and regular rhythm Gastrointestinal (Abdomen): normal bowel sounds, soft, nontender, no hepatosplenomegaly Musculoskeletal: Head/Neck/Chest: normocephalic and head atraumatic right lower back and lower thigh with dressing Neurologic: PERRL, EOMI, accommodation nl, no face palsy, no dysarthria Psychiatric: A+Ox3, euthymic affect Results & Data Vital Signs (Past 12 Hours) Vital Signs Temp Pulse Pulse Resp BP Pulse Ox 04/12/19 10:35 36.6 C 59 L 14 122/73 93 04/12/19 10:15 55 L 16 100/50 L 92 04/12/19 10:05 53 L 12 109/63 93 04/12/19 09:55 36.3 C L 58 L 12 116/80 94 04/12/19 09:45 59 L 16 102/68 94 04/12/19 09:35 59 L 21 119/71 97 04/12/19 09:25 56 L 14 107/69 98 04/12/19 09:15 65 12 132/78 99 04/12/19 09:08 36.7 C 66 14 125/71 98 04/12/19 06:16 36.5 C 54 L 20 133/83 97
[2019-04-12] MEDS ORDERED: LARYING-O-JET KIT (LTA) ONE (11:51)
[2019-04-12] MEDS: ATENOLOL 25 MG TABLET PO SCH (13:36)
[2019-04-12] MEDS: CHOLECALCIFEROL 1,000 UNITS 25 MCG TAB PO SCH (13:37)
[2019-04-12] MEDS: CITALOPRAM 40 MG TAB PO SCH (13:37)
[2019-04-12] MEDS: OXYCODONE HCL IR 5 MG TAB (IMMEDIATE RELEASE) PO PRN (13:40)
[2019-04-12] MEDS: clonazePAM 0.5 MG TAB PO SCH ×2 (13:40→20:03)
[2019-04-12] MEDS: SODIUM CHLORIDE 0.9% 1000ML 1,000 ML IV SCH ×2 (13:40→23:20)
[2019-04-12] MEDS: CEFAZOLIN 2000MG 2,000 MG/15 ML SYR IV SCH ×2 (15:42→23:20)
[2019-04-12] MEDS: DOCUSATE SODIUM 100 MG CAP PO SCH (20:04)
[2019-04-12] MEDS: SIMVASTATIN 20 MG TAB PO SCH (20:04)
[2019-04-12] MEDS: DOCUSATE SODIUM/SENNA 50/8.6MG TAB PO SCH (20:04)
[2019-04-12] MEDS ORDERED: POLYETHYLENE (MIRALAX) 17 GM PACK PO SCH (21:00)
[2019-04-12] MEDS ORDERED: COUGH DROP (SUGAR FREE) LOZ 24 LOZ/1 BOX BUCCAL PRN (23:20)
[2019-04-13 05:28] LABS: Basophils # (auto) 0.01 K/uL (0-0.2); Basophils % (auto) 0.1 %; Hematocrit (blood only) 35.5 % (42-52); Immature Granulocytes # (auto) 0.03 K/uL (0.00-0.02); Immature Granulocytes % (auto) 0.3 %; Lymphocytes # (auto) 1.15 K/uL (1.2-3.4); Mean Corpuscular Hemoglobin 30.8 pg (25-34); Mean Corpuscular Hgb Conc 33.8 g/dL (32-36); Mean Corpuscular Volume 91.3 fL (80-100); Mean Platelet Volume 9.8 fL (7.4-10.4); Monocytes % (auto) 9.6 %; Platelet Count 228 K/uL (130-400); RDW Coefficient of Variation 14.3 % (11.5-14.5); RDW Standard Deviation 47.9 fL (36.4-46.3); Red Blood Count 3.89 M/uL (4.7-6.1); White Blood Count 11.49 K/uL (4.8-10.8)
[2019-04-13] MEDS: POLYETHYLENE (MIRALAX) 17 GM PACK PO SCH ×4 (05:30→23:57)
[2019-04-13 05:58] LABS: Albumin Level 2.5 gm/dl (3.4-5.0); BUN Creatinine Ratio 14.6 (10-20); Calcium 8.3 mg/dl (8.5-10.1); Creatinine Clr Calc Pharmacy 32.5 ml/min; Est GFR (African American) 37.7; Est GFR (Non-African American) 32.5; Potassium 4.7 mmol/L (3.5-5.1)
[2019-04-13 06:01] LABS: Albumin Globulin Ratio 0.7 (0.9-2); Bilirubin,Total 0.3 mg/dl (0.2-1); Globulin 3.4 gm/dl (2.5-4.0); Total Protein 5.9 gm/dl (6.4-8.2)
--- NOTE | 2019-04-13 07:56 | Anesthesiology Progress Note ---
Date of Service April 13, 2019 Anesthesia Post Procedure Vital Signs Vital Signs: Temp Pulse Pulse Pulse Resp BP Pulse Ox 04/13/19 03:49 36.9 C 63 17 116/64 92 04/12/19 23:38 36.4 C L 53 L 17 119/67 94 04/12/19 19:04 36.4 C L 63 17 106/64 94 04/12/19 15:23 95 04/12/19 15:15 36.4 C L 64 17 125/73 96 04/12/19 13:33 36.4 C L 56 L 16 136/73 97 04/12/19 12:31 69 16 121/74 96 04/12/19 11:40 61 16 138/84 96 04/12/19 11:33 55 L 16 134/84 96 04/12/19 10:35 36.6 C 59 L 14 122/73 93 04/12/19 10:15 55 L 16 100/50 L 92 04/12/19 10:05 53 L 12 109/63 93 04/12/19 09:55 36.3 C L 58 L 12 116/80 94 04/12/19 09:45 59 L 16 102/68 94 04/12/19 09:35 59 L 21 119/71 97 04/12/19 09:25 56 L 14 107/69 98 04/12/19 09:15 65 12 132/78 99 04/12/19 09:08 36.7 C 66 14 125/71 98 Pain Intensity Lower Back: Pain Intensity: 4 Notes Mental Status: alert / awake / arousable and participated in evaluation Patient Amnestic to Procedure: Yes Nausea / Vomiting: adequately controlled Pain: adequately controlled Airway Patency, RR, SpO2: stable & adequate BP & HR: stable & adequate Hydration State: stable & adequate Anesthetic Complications: no major complications apparent and Pt Satisfied with anesthetic care
[2019-04-13] MEDS: ATENOLOL 25 MG TABLET PO SCH (08:34)
[2019-04-13] MEDS: CITALOPRAM 40 MG TAB PO SCH (08:34)
[2019-04-13] MEDS: clonazePAM 0.5 MG TAB PO SCH ×2 (08:34→21:57)
[2019-04-13] MEDS: CHOLECALCIFEROL 1,000 UNITS 25 MCG TAB PO SCH (08:34)
[2019-04-13] MEDS: MIRABEGRON ER 25 MG TAB PO SCH (08:34)
[2019-04-13] MEDS: ARTIFICIAL TEARS OP SCH (08:35)
--- NOTE | 2019-04-13 08:37 | Orthopedic Progress Note ---
Date of Service April 13, 2019 Assessment & Plan (1) Sacroiliitis: This time will initiate physical therapy with toe-touch weightbearing hopefully discharge home tomorrow. Present on Admission?: Yes Subjective Patient's pain is well controlled. Feels that he can move but better than before surgery. Physical Exam Physical Exam: Patient has good strength testing appears comfortable. Results & Data ([facility]) Vital Signs (Past 12 Hours) Vital Signs Temp Pulse Resp BP Pulse Ox 04/13/19 03:49 36.9 C 63 17 116/64 92 04/12/19 23:38 36.4 C L 53 L 17 119/67 94
[2019-04-13] MEDS: DOCUSATE SODIUM 100 MG CAP PO SCH (21:54)
[2019-04-13] MEDS: DOCUSATE SODIUM/SENNA 50/8.6MG TAB PO SCH (21:55)
[2019-04-13] MEDS: SIMVASTATIN 20 MG TAB PO SCH (21:55)
[2019-04-13] MEDS: OXYCODONE HCL IR 5 MG TAB (IMMEDIATE RELEASE) PO PRN (23:57)
--- NOTE | 2019-04-14 00:09 | Hospitalist Progress Note ---
Date of Service April 13, 2019 Assessment & Plan (1) Post-operative state: s/p SI joint surgery. Management per Dr. Merida. Pain control PRN. (2) History of stroke: Pradaxa as home medication, currently on hold. Restart per Dr Merida and PCP. Close primary care follow-up is recommended. (3) Hypertension: labile, cont atenolol. OK to restart lisinopril at time of discharge. (4) Anxiety: citalopram and clonazepam per home regimen. (5) H/O skin pruritus: PRN Benadryl (6) DVT prophylaxis: SCDs-per Ortho DNR Dispo- like to home in am, but up to Ortho DO Chris Menjivar Hospitalist Subjective Pt is feeling well today but reports some itching. He is tolerating PO. Pain is controlled on current medical therapy. Review of Systems Review of Systems: All systems reviewed & are unremarkable except as noted in Subjective Physical Exam Physical Exam: CONSTITUTIONAL: WNWD, vitals as above, generally well- appearing EYES: normal conjunctivae, no scleral icterus ENT: MMM RESPIRATORY: clear to auscultation bilaterally, no crackles, rales or wheezes, normal respiratory effort CARDIOVASCULAR: regular rate and rhythm, S1 and 2 heard without murmurs, gallops or rubs, no JVD, no peripheral edema GASTROINTESTINAL: soft, nontender, nondistended MUSCULOSKELETAL: no gross focal deficits. SKIN: warm and dry NEUROLOGIC: CN 2-12 grossly intact, no sensory deficit, normal cognition, normal speech PSYCHIATRIC: alert cooperative and oriented to person, place and time. Results & Data ([facility]) Vital Signs (Past 12 Hours) Vital Signs Temp Pulse Resp BP Pulse Ox 04/13/19 23:27 36.9 C 61 17 98/64 L 96 04/13/19 15:34 36.7 C 56 L 17 138/77 96 Laboratory Results Short CBC 04/13/19 Range/Units 05:17 WBC 11.49 H (4.8-10.8) K/uL Hgb 12.0 L (14.0-18.0) g/dL Hct 35.5 L (42-52) % Plt Count 228 (130-400) K/uL BMP 04/13/19 05:17 Sodium 137 Potassium 4.7 Chloride 109 H Carbon Dioxide 25 BUN 29 H Creatinine 1.97 H Glucose 158 H Calcium 8.3 L Liver Function 04/13/19 Range/Units 05:17 Total Bilirubin 0.3 (0.2-1) mg/dl AST 14 L (15-37) U/L ALT 17 (12-78) U/L Alkaline Phosphatase 56 (45-117) U/L Albumin 2.5 L (3.4-5.0) gm/dl Medications Administered Current Inpatient Medications Acetaminophen (Tylenol) 500 mg PO Q6H PRN PRN Reason: Pain Stop: 05/12/19 10:53 Acetaminophen (Tylenol) 1,000 mg PO Q8H PRN PRN Reason: MILD Pain Rating 1,2,3 Stop: 05/12/19 10:53 Al Hydrox/Mg Hydrox/Simethicone (Maalox) 30 ml PO Q6H PRN PRN Reason: Dyspepsia Stop: 05/12/19 10:53 Albuterol (Ventolin Hfa) 1 puffs INH Q6H PRN PRN Reason: Shortness Of Breath Stop: 05/12/19 10:53 Artificial Tears (Artificial Tears) 1 drops OP [facility] Stop: 05/13/19 08:59 Last Admin: 04/13/19 08:35 Dose: 1 drops Documented by: [facility]) [facility] Stop: 05/12/19 10:53 Last Admin: 04/13/19 08:34 Dose: 25 mg Documented by: Bisacodyl (Dulcolax) 10 mg MN DAILY PRN PRN Reason: Constipation Stop: 05/12/19 10:53 Citalopram Hydrobromide (Celexa) 40 mg PO [facility] Stop: 05/12/19 10:53 Last Admin: 04/13/19 08:34 Dose: 40 mg Documented by: Clonazepam (Klonopin) 0.5 mg PO BID [facility] Stop: 05/12/19 10:53 Last Admin: 04/13/19 21:57 Dose: 0.5 mg Documented by: Diphenhydramine HCl (Benadryl Capsule) 25 mg PO Q6H PRN PRN Reason: Allergic Rhinitis/Insomnia Stop: 05/12/19 10:53 Last Admin: 04/13/19 18:41 Dose: 25 mg Documented by: Docusate Sodium (Colace) 400 mg PO QPM [facility] Stop: 05/12/19 20:59 Last Admin: 04/13/19 21:54 Dose: 400 mg Documented by: Famotidine (Pepcid) 20 mg PO Q12H PRN PRN Reason: Dyspepsia Stop: 05/12/19 10:53 Last Admin: 04/13/19 16:01 Dose: 20 mg Documented by: Hydromorphone HCl (Dilaudid) 0.5 mg IV Q3H PRN PRN Reason: moderate pain (scale 4-6) Stop: 04/26/19 10:53 Hydromorphone HCl (Dilaudid) 1 mg IV Q3H PRN PRN Reason: severe pain (scale 7-10) Stop: 04/26/19 10:53 Hydroxyzine HCl (Vistaril) 25 mg PO Q8H PRN PRN Reason: Anxiety Stop: 05/12/19 10:53 Promethazine HCl 12.5 mg/ (Sodium Chloride) 50.5 mls @ 204 mls/hr IV Q6H PRN PRN Reason: Nausea &/or Vomiting Stop: 05/12/19 10:53 Lorazepam (Ativan) 0.5 mg in 1 mls @ 0.5 mls/min IV Q8H PRN PRN Reason: Sedation/Anxiety Stop: 05/12/19 10:53 Influenza Virus Vaccine Quadrival (Flu Vaccine, Do Not Administer) 1 ea N/A PRN PRN PRN Reason: Notification Stop: 05/12/19 10:53 Lorazepam (Ativan) 0.5 mg PO Q8H PRN PRN Reason: Sedation/Anxiety Stop: 05/12/19 10:53 Magnesium Hydroxide (Milk Of Magnesia) 30 ml PO DAILY PRN PRN Reason: Constipation Stop: 05/12/19 10:53 Menthol (Nice) 1 aguilar BUCCAL PRN PRN PRN Reason: Sore Throat Stop: 05/12/19 23:19 Last Admin: 04/12/19 23:29 Dose: 1 aguilar Documented by: Metoclopramide HCl (Reglan) 10 mg IV Q6H PRN PRN Reason: Nausea &/or Vomiting Stop: 05/12/19 10:53 Mirabegron (Myrbetriq Er) [facility] Stop: 05/13/19 08:59 Last Admin: 04/13/19 08:34 Dose: 50 mg Documented by: Naloxone HCl (Narcan) 0.1 mg IV Q5M PRN; Protocol PRN Reason: Oversedation/Resp Depression Stop: 05/12/19 10:53 Ondansetron HCl (Zofran) 4 mg IV Q6H PRN PRN Reason: Nausea &/or Vomiting Stop: 05/12/19 10:53 Ondansetron HCl (Zofran Odt) 4 mg PO Q6H PRN PRN Reason: Nausea Stop: 05/12/19 10:53 Oxycodone HCl (Roxicodone Immediate Rel) 5 - 10 mg PO Q4H PRN PRN Reason: Moderate-Severe Pain Stop: 04/26/19 10:53 Last Admin: 04/13/19 23:57 Dose: 5 mg Documented by: Pneumococcal Polyvalent Vaccine (Pneumococcal Vacc, Do Not Administer) 1 ea N/A PRN PRN PRN Reason: Notification Stop: 05/12/19 10:53 Polyethylene Glycol (Miralax Powder Packet) 17 gm PO Q6 [facility] Stop: 05/13/19 05:59 Last Admin: 04/13/19 18:39 Dose: 17 gm Documented by: Senna/Docusate Sodium (Senokot S) 2 tab PO HS [facility] Stop: 05/12/19 20:59 Last Admin: 04/13/19 21:55 Dose: 2 tab Documented by: Simvastatin (Zocor) 20 mg PO PM [facility] Stop: 05/12/19 20:59 Last Admin: 04/13/19 21:55 Dose: 20 mg Documented by: Sodium Biphosphate/Sodium Phosphate (Fleet Enema) 132 ml MN ONE PRN PRN Reason: Constipation Stop: 05/12/19 10:53 Vitamin D (Vitamin D3) 1,000 units PO QAM [facility] Stop: 05/12/19 10:53 Last Admin: 04/13/19 08:34 Dose: 1,000 units Documented by:
[2019-04-14] MEDS: POLYETHYLENE (MIRALAX) 17 GM PACK PO SCH ×2 (05:45→12:29)
[2019-04-14] MEDS: ARTIFICIAL TEARS OP SCH (08:28)
[2019-04-14] MEDS: MIRABEGRON ER 25 MG TAB PO SCH (08:29)
[2019-04-14] MEDS: CHOLECALCIFEROL 1,000 UNITS 25 MCG TAB PO SCH (08:29)
[2019-04-14] MEDS: CITALOPRAM 40 MG TAB PO SCH (08:29)
[2019-04-14] MEDS: clonazePAM 0.5 MG TAB PO SCH (08:29)
[2019-04-14] MEDS: ATENOLOL 25 MG TABLET PO SCH (08:29)
[2019-04-14] MEDS: OXYCODONE HCL IR 5 MG TAB (IMMEDIATE RELEASE) PO PRN (12:28)
--- NOTE | 2019-04-14 13:28 | Discharge Summary ---
Date of Service April 14, 2019 Admission HPI Per Admitting Provider This is a 73-year-old male well-known to me the presents with chronic persistent sacroiliitis. After failing extensive course of nonoperative care is here for surgical intervention. Principal Diagnosis Sacroiliitis Discharge Data Allergies Allergy/AdvReac Type Severity Reaction Status Date / Time magnesium sulfate Allergy Severe HIVES Verified 04/12/19 06:32 adhesive Allergy Intermediate BANDAIDS- Verified 04/12/19 06:32 SKIN BREAKS OUT codeine Allergy Intermediate RASH Verified 04/12/19 06:32 Iodinated Contrast Media Allergy Intermediate NOTED Verified 04/12/19 06:32 IVP DYE - RASH latex Allergy Intermediate SKIN Verified 04/12/19 06:32 IRRITATION tolterodine Allergy Intermediate RASH Verified 04/12/19 06:32 Sulfa (Sulfonamide Allergy Unknown UNKNOWN Verified 04/12/19 06:32 Antibiotics) REACTION amoxicillin Allergy Pruritus Verified 04/12/19 06:32 Consultations 04/12/19 10:54 Consult Case Management - Discharge Planning Routine Consult Hospitalist Routine Procedures Performed Operation Date: 04/12/19 07:45 Actual Procedures p Right Sacroiliac Joint Fusion(Right) - Cody Merida DO Ordered Studies 04/12/19 07:45 FL fluoroscopy <1hr Routine FL sacrum Routine Hospital Course (1) Sacroiliitis: Patient underwent right SI joint fusion tolerated well second orthopedic for postoperative. Postop day 1 he was tolerating physical therapy well. Postop day 2 pain was well controlled he understood physical therapy and restrictions with subsequent discharge home. Discharge orders instructions from the chart for further review. Total Time Total Time Spent Total Time Spent (In Minutes): 20 minutes Discharge Plan Discharge Items Patient Disposition: Home - Self-Care Reason For Visit: SI Joint Dysfunction Discharge Diagnosis: sacralilitis Activity: Per Instructions section Lifting: No more than 5 pounds Bathing: May shower/bathe in 3 days Weightbearing: Right toe touch Non-emergency contact: Primary Care Provider Call non-emergency contact if: you have any medication questions Follow-up/Referrals: Ankit Mcgowan MD [Primary Care Provider] - Diet: Regular Addtl Attending Provider Instructions: Patient is to remain toe-touch weightbearing when using a walker. He is to follow-up in 2 weeks as scheduled for exam and x-rays. Pending Studies at Discharge: No Stand-Alone Forms: [facility], Opioid Pain Management, Smoking Cessation Medications and DC Order Prescriptions: New tramadol 50 mg tablet 50 mg PO Q6H PRN (Reason: pain, moderate) Qty: 20 RF: 0 oxycodone 5 mg tablet 5 mg PO Q6H PRN (Reason: pain, severe) Qty: 20 RF: 0 Continued citalopram 40 mg Tablet 40 mg PO QAM RF: 0 clonazepam 0.5 mg Tablet 0.5 mg PO BID RF: 0 atenolol 25 mg Tablet 25 mg PO QAM RF: 0 simvastatin 20 mg Tablet 20 mg PO PM RF: 0 lisinopril 10 mg Tablet 10 mg PO QAM RF: 0 albuterol sulfate 90 mcg/actuation Hfa Aerosol Inhaler 1 puff INHALATION Q6H PRN (Reason: Shortness Of Breath) RF: 0 oxycodone 5 mg Tablet 5 mg PO DAILY PRN (Reason: Pain) RF: 0 Pradaxa 150 mg Capsule 150 mg PO BID RF: 0 Myrbetriq 50 mg Tablet Extended Release 24 Hr 50 mg PO QAM RF: 0 acetaminophen 500 mg Tablet 500 mg PO Q6H PRN (Reason: Pain) RF: 0 polyethylene glycol 3350 [Miralax] 17 gram/dose Powder 17 g PO QPM RF: 0 docusate sodium [Stool Softener] 100 mg Tablet 400 mg PO QPM RF: 0 cholecalciferol (vitamin D3) [Vitamin D3] 25 mcg (1,000 unit) Capsule 25 mcg PO QAM RF: 0 Soothe XP 1-4.5 % Drops 1 drp OPHTHALMIC (EYE) QAM RF: 0 omega-3 fatty acids-fish oil [Fish Oil] 360-1,200 mg Capsule 1 cap PO QAM RF: 0 ranitidine HCl 150 mg Tablet 150 mg PO DAILY PRN (Reason: GERD) RF: 0 Glucosamine Chondroitin 1 cap PO BID RF: 0 doxycycline hyclate 1 tab PO BID RF: 0 Discharge Orders: Discharge Order (Routine); Ordered 04/14/19 Ordered By: Cody Roca/Other Patient Handouts: Surgery Prevent DVT After Admission Data Admit Date/Time: 04/12/19 09:47 Attending Provider: Cody Merida Admit Provider: Cody Merida Primary Care Provider: Ankit Mcgowan Other Providers: Celeste Dill Other Interventions: Discharge Summary Assessment (RN) Last Done: 04/14/19 12:01 DC Date/Time DO NOT enter until pt leaves facility: 04/14/19 12:57
== END 2019-04-14 12:57 | disposition home or self-care (01) | DRG 460 ==
LOC: ASU 05:47 → 3E 09:47

== ENCOUNTER 2019-12-03 14:20 | Inpatient (IN) ==
[2019-12-03] MEDS ORDERED: ONDANSETRON INJ 2 MG/ML 2 ML VIAL IV STA (14:36)
[2019-12-03] MEDS ORDERED: LORazepam 0.5 MG/1 ML VIAL IV STA (14:36)
--- NOTE | 2019-12-03 14:40 | Emergency Department Note ---
Impression & Plan Chronic back pain, Intractable back pain ED Provider Note NAME: SRINIVASAN LOVE AGE: 74 SEX: M : 1945 ARRIVES VIA: Walk-In INFORMANT: Patient, the patient's daughter ED PROVIDER(S): Kimani Buckner DO CHIEF COMPLAINT: Back pain HPI: The patient is a 74-year-old male who presented to the emergency department for an evaluation of low back pain. The patient is a history of lumbar disc disease. He is had lumbar surgery in the past. He does have a primary orthopedic print support specialist at our facility, Dr. Merida. The patient does take chronic pain medication. He has a hospital bed at home. The patient has had this back pain for many years. He does see a pain specialist. The patient states approximately 2 weeks ago he was lifting this off out of bed using his hospital bed when he felt a significant right sided back pain. The pain is been constant ever since this time. It is worsened with movement and walking. He does feel better with remaining still. The patient tried taking his usual prescription pain medication with only minimal relief. He was having such severe pain his daughter felt that she had no other option but to bring him to the emergency department for further evaluation. The patient denies having any hematuria. He denies having any chest pain or abdominal pain. He denies having any cough or fever. He does not complain of lower extremity weakness but states the pain is very bad when he tries to ambulate. ROS: See above HPI for pertinent positives & negatives. A total of 10 systems reviewed and were otherwise negative. PAST MEDICAL HISTORY: See Below PAST SURGICAL HISTORY: See Below FAMILY HISTORY: See Below SOCIAL HISTORY: See Below HOME MEDICATIONS: See Below ALLERGIES: See Below VITALS: See Below PHYSICAL EXAMINATION: GENERAL: The patient is awake alert. He is very anxious appearing and appears to be in significant pain. EYES: The conjunctivae are clear. The pupils are round and reactive. EARS, NOSE, MOUTH AND THROAT: The nose is without any evidence of any deformity. Mucous membranes are moist. Tongue is midline. NECK: The neck is nontender and supple. RESPIRATORY: Normal respiratory effort is noted there is no evidence of wheezing rhonchi or rales CARDIOVASCULAR: Regular rate and rhythm noted there no murmurs rubs or gallops normal S1 normal S2. GASTROINTESTINAL: The abdomen is soft. Abdomen is nontender. BACK: There is no midline tenderness to percussion. There is significant right sided paravertebral muscle tenderness as well as right SI tenderness to palpation. Range of motion of the lower extremity significantly increase the pain. MUSCULOSKELETAL/EXTREMITIES: There is no evidence of gross deformity full range of motion is noted in the hips and shoulders. SKIN: There is no obvious evidence of any rash. Trace pedal edema was noted bilaterally. NEUROLOGIC: Patient is awake alert and oriented x3 strength is symmetric patellar reflexes are 3+ bilaterally. Achilles tendon reflexes were 2+ bilaterally. Great toe raise was symmetric. MEDICAL DECISION MAKING: The patient is a 74-year-old male who presented to the emergency department with his daughter for an evaluation of low back pain. The patient has a history of chronic back pain which is been ongoing for approximately 8 years. He is on multiple medications for pain. The patient does have a orthopedic spinal specialist and has had surgery in the past. He presented to the emergency department today because of worsening symptoms over the last few weeks. I discussed patient's laboratory and radiographic studies with him. He was treated with pain medication as well as steroids. He was reevaluated multiple times. On subsequent reevaluation he was significantly improved but still had very significant pain. For this reason I discussed his case with his primary orthopedic spinal specialist as well as the on-call [facility] Hospitalist. Triage Nursing notes reviewed. Prior medical records reviewed Vital Signs: reviewed and remarkable for elevated blood pressure. Differential diagnosis: Musculoskeletal, disc herniation, fracture, metastatic disease, cord compression, discitis, sciatica, cauda equina, infection, aortic disease, renal colic, gastrointestinal, as well as other pathologies. ER treatment provided: See below Diagnostics interpreted by me: ECG: none Cardiac Monitoring: An order was placed for continuous cardiac monitoring. The monitor shows a rate of 72 bpm with sinus rhythm. Laboratory studies: As stated above and show below. Imaging studies: See below Consultation(s): 1829: I discussed the patient's radiographic studies with Dr. Merida. 1919: I discussed this case with the [facility] Hospitalist. Past Med/Surg History Medical History (Updated 12/03/19 @ 21:45 by Kimani Buckner DO) Atrial fibrillation Carotid artery stenosis <50% B/L ICA stenosis per 01/2018 carotid imaging Chronic constipation CKD (chronic kidney disease) creatinine baseline in the 1.6-1.9 range per chart review GERD (gastroesophageal reflux disease) controlled History of kidney stones Hypertension Nocturia Obesity Spinal stenosis Stroke multiple, most 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 (per cardiology note, hx 1997, 2000)- no residual effects Surgical History History of back surgery Hx of cervical spine surgery Hx of cystoscopy FOR STONE REMOVAL Hx of lithotripsy Social History Smoking Status: Former smoker Tobacco Type: Cigarettes Second Hand Exposure: No; Hx Alcohol Use: No Hx Substance Use: No Preferred Language: Welsh Communication Ability: Effective Marketing Operations Assistant Required: No Beliefs That Will Affect Care: None Current Living Situation: Alone Current Living Situation Comment: 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 Feels Safe at Home: Yes Allergies Allergies Allergy/AdvReac Type Severity Reaction Status Date / Time magnesium sulfate Allergy Severe HIVES Verified 12/03/19 16:05 adhesive Allergy Intermediate BANDAIDS- Verified 12/03/19 16:05 SKIN BREAKS OUT codeine Allergy Intermediate RASH Verified 12/03/19 16:05 Iodinated Contrast Media Allergy Intermediate NOTED Verified 12/03/19 16:05 IVP DYE - RASH latex Allergy Intermediate SKIN Verified 12/03/19 16:05 IRRITATION tolterodine Allergy Intermediate RASH Verified 12/03/19 16:05 Sulfa (Sulfonamide Allergy Unknown UNKNOWN Verified 12/03/19 16:05 Antibiotics) REACTION amoxicillin Allergy Pruritus Verified 12/03/19 16:05 Home Meds Home Medications Medication Instructions Recorded Confirmed Pradaxa 150 mg PO BID 03/20/19 12/03/19 Soothe XP 1 drp OPHTHALMIC (EYE) QAM 03/20/19 12/03/19 acetaminophen 650 mg PO Q6H PRN 03/20/19 12/03/19 albuterol sulfate 1 - 2 puff INHALATION Q6H PRN 03/20/19 12/03/19 atenolol 25 mg PO QAM 03/20/19 12/03/19 cholecalciferol (vitamin D3) 25 mcg PO QAM 03/20/19 12/03/19 [Vitamin D3] lisinopril 10 mg PO QAM 03/20/19 12/03/19 omega-3 fatty acids-fish oil [Fish 1 cap PO QAM 03/20/19 12/03/19 Oil] polyethylene glycol 3350 [Miralax] 17 g PO QPM 03/20/19 12/03/19 simvastatin 20 mg PO PM 03/20/19 12/03/19 glucos sul [id number]-Mn 1 cap PO BID 05/19/19 12/03/19 [Glucosamine Chondroitin] oxycodone 5 mg PO Q4 PRN 05/19/19 12/03/19 furosemide 40 mg PO BID 10/28/19 12/03/19 tamsulosin 0.4 mg PO QAM 10/28/19 12/03/19 morphine 15 mg PO Q12 12/03/19 12/03/19 Results & Data (ED) Vital Signs Vital Signs - 24 hr 12/03/19 14:23 12/03/19 14:51 12/03/19 15:41 Temperature 36.7 C Temperature Source Oral Pulse Rate 98 H 69 Pulse Rate [Right] Pulse Rate from SpO2 Sensor 69 Pulse Rhythm Regular Pulse Strength Normal Respiratory Rate 18 19 Respiratory Effort / Characteristics Non-Labored Spontaneous Respiratory Depth Normal Respiratory Pattern Regular Blood Pressure 133/73 147/82 H Blood Pressure [Right Arm] Blood Pressure Mean 93 92 Blood Pressure Mean [Right Arm] Blood Pressure Position Sitting Pulse Oximetry 95 94 95 Oxygen Delivery Method Room Air Room Air Sepsis Recent Fever Within 48 Hours No Sepsis New/Unexplained Change in Mental Status N/A Sepsis Action Taken by Nursing No Action Required 12/03/19 17:07 12/03/19 17:30 12/03/19 18:01 Temperature Temperature Source Pulse Rate 63 Pulse Rate [Right] Pulse Rate from SpO2 Sensor 75 67 64 Pulse Rhythm Pulse Strength Respiratory Rate 18 18 15 Respiratory Effort / Characteristics Respiratory Depth Respiratory Pattern Blood Pressure 128/67 125/68 110/76 Blood Pressure [Right Arm] Blood Pressure Mean 82 74 94 Blood Pressure Mean [Right Arm] Blood Pressure Position Pulse Oximetry 93 93 94 Oxygen Delivery Method Sepsis Recent Fever Within 48 Hours Sepsis New/Unexplained Change in Mental Status Sepsis Action Taken by Nursing 12/03/19 18:30 12/03/19 19:01 Temperature Temperature Source Pulse Rate 61 Pulse Rate [Right] 62 Pulse Rate from SpO2 Sensor 61 Pulse Rhythm Pulse Strength Respiratory Rate 16 18 Respiratory Effort / Characteristics Respiratory Depth Respiratory Pattern Blood Pressure 133/72 Blood Pressure [Right Arm] 134/73 Blood Pressure Mean 92 Blood Pressure Mean [Right Arm] 93 Blood Pressure Position Pulse Oximetry 94 94 Oxygen Delivery Method Sepsis Recent Fever Within 48 Hours Sepsis New/Unexplained Change in Mental Status Sepsis Action Taken by Half-Way Medications Current Medication List: was personally reviewed by me Laboratory Data Attestation: I reviewed the patient's lab results. Result diagrams: 12/03/19 21:04 12/03/19 15:25 Lab Results 12/03/19 12/03/19 12/03/19 Range/Units 15:25 15:25 16:04 WBC 7.08 (4.8-10.8) K/uL RBC 4.40 L (4.7-6.1) M/uL Hgb 13.2 L (14.0-18.0) g/dL Hct 39.6 L (42-52) % MCV 90.0 (80-100) fL MCH 30.0 (25-34) pg MCHC 33.3 (32-36) g/dL RDW Std Deviation 44.2 (36.4-46.3) fL RDW Coeff of Valerie 13.3 (11.5-14.5) % Plt Count 294 (130-400) K/uL MPV 9.1 (7.4-10.4) fL Immature Gran % (Auto) 0.6 % Neut % (Auto) 69.3 % Lymph % (Auto) 19.1 % Borden % (Auto) 8.5 % Eos % (Auto) 2.1 % Baso % (Auto) 0.4 % Neut # (Auto) 4.91 (1.4-6.5) K/uL Lymph # (Auto) 1.35 (1.2-3.4) K/uL Borden # (Auto) 0.60 H (0.11-0.59) K/uL Eos # (Auto) 0.15 (0-0.5) K/uL Baso # (Auto) 0.03 (0-0.2) K/uL Immature Gran # (Auto) 0.04 H (0.00-0.02) K/uL Sodium 140 (136-145) mmol/L Potassium 4.1 (3.5-5.1) mmol/L Chloride 105 (98-107) mmol/L Carbon Dioxide 27 (21-32) mmol/L Anion Gap 8.0 (3-11) BUN 29 H (7-18) mg/dl Creatinine 1.97 H (0.6-1.4) mg/dl Est Cr Clr Drug Dosing 31.6 ml/min Est GFR ( Amer) 37.4 Est GFR (Non-Af Amer) 32.3 BUN/Creatinine Ratio 14.8 (10-20) Glucose 120 H (70-99) mg/dl Calcium 8.9 (8.5-10.1) mg/dl Total Bilirubin 0.3 (0.2-1) mg/dl AST 16 (15-37) U/L ALT 26 (12-78) U/L Alkaline Phosphatase 77 (45-117) U/L Total Protein 7.5 (6.4-8.2) gm/dl Albumin 3.1 L (3.4-5.0) gm/dl Globulin 4.4 H (2.5-4.0) gm/dl Albumin/Globulin Ratio 0.7 L (0.9-2) Lipase 115 (73-393) U/L Urine Color Yellow Urine Appearance Clear (Clear) Urine pH 5.5 (4.5-7.5) Ur Specific Nora 1.012 (1.000-1.030) Urine Protein Trace H (Negative) Urine Glucose (UA) Negative (Negative) Urine Ketones Negative (Negative) Urine Blood 1+ H (Negative) Urine Nitrite Negative (Negative) Urine Bilirubin Negative (Negative) Urine Urobilinogen Negative (Negative) Ur Leukocyte Esterase Negative (Negative) Urine WBC (Auto) 1-5 (0-5) /hpf Urine RBC (Auto) 0-4 (0-4) /hpf U Hyaline Cast (Auto) 1-5 (0-5) /lpf U Epithel Cells (Auto) 0-5 (0-5) /lpf Urine Bacteria (Auto) Negative (Negative) Administered Medications Discontinued Medications Dexamethasone (Dexamethasone Sod Inj 10 Mg/Ml Vial) 10 mg IV NOW ONE Stop: 12/03/19 18:34 Last Admin: 12/03/19 18:59 Dose: 10 mg Documented by: [id number] Heparin Sodium/Dextrose (Heparin 57632 Unit/500 Ml D5w) Confirm Administered Dose 25,000 units IV .STK-MED ONE Stop: 12/03/19 20:04 Last Admin: 12/03/19 20:11 Dose: 17 units Documented by: [id number] Cosigned by: [id number] Hydromorphone HCl (Hydromorphone Inj 0.5 Mg/0.5 Ml Syr) 0.5 mg IV Q15M PRN PRN Reason: Pain Stop: 12/17/19 14:35 Last Admin: 12/03/19 18:58 Dose: 0.5 mg Documented by: [id number] Admin: 12/03/19 15:47 Dose: 0.5 mg Documented by: [id number] Lorazepam (Ativan) 0.5 mg in 1 mls @ 1 mls/min IV NOW STA Stop: 12/03/19 14:37 Last Admin: 12/03/19 15:46 Dose: 1 mls/min Documented by: [id number] Sodium Chloride (Nss) 500 mls @ 999 mls/hr IV .Q31M XIMENA Stop: 12/03/19 15:15 Last Infusion: 12/03/19 15:59 Dose: 0 mls/hr Documented by: [id number] Admin: 12/03/19 15:28 Dose: 999 mls/hr Documented by: [id number] Ondansetron HCl (Ondansetron Inj 2 Mg/Ml 2 Ml Vial) 4 mg IV NOW STA Stop: 12/03/19 14:37 Last Admin: 12/03/19 15:47 Dose: 4 mg Documented by: [id number] Imaging Data Radiologist's Impression: XR chest 1V portable HISTORY: Shortness of breath. COMPARISON: Chest 10/28/2019. FINDINGS: The lungs are clear. Cardiac silhouette is normal in size. No pleural effusions. No pneumothorax. IMPRESSION: No acute process. ACT 112: Negative or not required by law. Electronically signed by: Jorge Casanova M.D. 12/03/2019 3:44 PM Dictated: 12/03/19 1544 Transcribed: 12/03/19 1544 LUMBAR SPINE MRI HISTORY: Low back pain. TECHNIQUE: Multiplanar multisequence MRI of the lumbar spine was performed without the use of contrast. COMPARISON: Lumbar spine MRI 05/25/2014. FINDINGS: For the purpose of the report the L5-S1 disc space will be located on axial image 34 of 37. Straightening of the lumbar spine. Posterior decompression fusion at L2-L3 with pedicle screws and rods. Moderate to severe disc space narrowing at L1-L2 which has progressed. Endplate signal abnormality at L1-L2 favors degenerative change. No significant loss of height to suggest a fracture. No subluxation. The L4-L5 vertebral bodies are fused. The conus terminates at the L1 level. Laminectomies from L2 through L5. Paravertebral soft tissues are within normal limits. Partially visualized T2 hyperintense lesions within the kidneys. These favor cysts. Bilateral sacroiliac screws are partially visualized. The left L2 pedicle screw tip appears to enter into the L1-L2 disc space. However, this is difficult to assess by MRI. Soft tissue edema at the laminectomy sites favors postoperative change. There is a disc spacer at L5-S1 and L2-L3. L1-L2: Broad-based posterior disc bulge with ligamentum and facet hypertrophy resulting in moderate central canal and severe bilateral neural foraminal na rrowing. L2-L3: No significant central canal narrowing due to the posterior decompression. There is mild bilateral neural foraminal narrowing. L3-L4: No significant central canal narrowing due to the posterior decompression. There is mild bilateral neural foraminal narrowing. L4-L5: No significant central canal narrowing due to the posterior decompression. There is moderate bilateral neural foraminal narrowing. L5-S1: No significant central canal narrowing due to the posterior decompression. Moderate right and mild left neural foraminal narrowing. IMPRESSION: 1. Extensive postoperative changes as described above. 2. No fractures identified within the lumbar spine. 3. Endplate signal abnormality at L1-L2 favors long-standing degenerative change. 4. Moderate to severe disc space narrowing at L1-L2 which has progressed. There is an associated broad-based posterior disc bulge and ligamentum flavum and facet hypertrophy at this level resulting in moderate central canal narrowing. As also severe bilateral neural foraminal narrowing at this level. ACT 112: Negative or not required by law. Electronically signed by: Jorge Casanova M.D. 12/03/2019 5:10 PM Dictated: 12/03/191700 Transcribed: 12/03/191700 Blood Pressure Blood Pressure Findings: Elevated blood pressure Blood Pressure Disposition: further management by hospitalist Discharge Plan Visit Data Chief Complaint: Back Injury/Pain Stated Complaint: SEVERE PAIN ON LOWER RIGHT SIDE ED Provider: Kimani Buckner Discharge Problem: Chronic back pain, Intractable back pain Patient Disposition: Admitted As Inpatient Condition: Good Discharge Instructions Interventions: ED Discharge Assessment Last Done: 12/03/19 20:21
[2019-12-03] MEDS ORDERED: SODIUM CHLORIDE 0.9% 500 ML IV SCH (14:45)
[2019-12-03 15:36] LABS: Basophils # (auto) 0.03 K/uL (0-0.2); Basophils % (auto) 0.4 %; Eosinophils # (auto) 0.15 K/uL (0-0.5); Eosinophils % (auto) 2.1 %; Hematocrit (blood only) 39.6 % (42-52); Hemoglobin 13.2 g/dL (14.0-18.0); Immature Granulocytes # (auto) 0.04 K/uL (0.00-0.02); Immature Granulocytes % (auto) 0.6 %; Lymphocytes # (auto) 1.35 K/uL (1.2-3.4); Lymphocytes % (auto) 19.1 %; Mean Corpuscular Hgb Conc 33.3 g/dL (32-36); Mean Platelet Volume 9.1 fL (7.4-10.4); Monocytes % (auto) 8.5 %; Neutrophils # (auto) 4.91 K/uL (1.4-6.5); Neutrophils % (auto) 69.3 %; Platelet Count 294 K/uL (130-400); RDW Coefficient of Variation 13.3 % (11.5-14.5); RDW Standard Deviation 44.2 fL (36.4-46.3); White Blood Count 7.08 K/uL (4.8-10.8)
--- NOTE | 2019-12-03 15:46 | XRay Report ---
XR chest 1V portable HISTORY: Shortness of breath. COMPARISON: Chest 10/28/2019. FINDINGS: The lungs are clear. Cardiac silhouette is normal in size. No pleural effusions. No pneumot horax. IMPRESSION: No acute process. ACT 112: Negative or not required by law. Electronically signed by: Jorge Casanova M.D. 12/03/2019 3:44 PM
[2019-12-03] MEDS: HYDROmorphone INJ 0.5 MG/0.5 ML SYR IV PRN ×2 (15:47→18:58)
[2019-12-03 15:53] LABS: Albumin Level 3.1 gm/dl (3.4-5.0); BUN Creatinine Ratio 14.8 (10-20); Calcium 8.9 mg/dl (8.5-10.1); Creatinine Clr Calc Pharmacy 31.6 ml/min; Est GFR (African American) 37.4; Est GFR (Non-African American) 32.3; Potassium 4.1 mmol/L (3.5-5.1)
[2019-12-03 15:56] LABS: Albumin Globulin Ratio 0.7 (0.9-2); Bilirubin,Total 0.3 mg/dl (0.2-1); Globulin 4.4 gm/dl (2.5-4.0); Total Protein 7.5 gm/dl (6.4-8.2)
[2019-12-03 16:21] LABS: Appearance Urine Clear (Clear); Bacteria Urine Automated Negative (Negative); Bilirubin Urine Negative (Negative); Blood Urine 1+ (Negative); Color Urine Yellow; Epithelial Cell Urine Auto 0-5 /lpf (0-5); Glucose Urine UA Negative (Negative); Ketones Urine Negative (Negative); Leukocyte Esterase Urine Negative (Negative); Nitrite Urine Negative (Negative); Protein Urine Trace (Negative); RBC Urine Automated 0-4 /hpf (0-4); Specific Gravity Urine 1.012 (1.000-1.030); Urobilinogen Urine Negative (Negative); pH Urine 5.5 (4.5-7.5)
--- NOTE | 2019-12-03 17:11 | Magnetic Resonance Report ---
LUMBAR SPINE MRI HISTORY: Low back pain. TECHNIQUE: Multiplanar multisequence MRI of the lumbar spine was performed without the use of contras t. COMPARISON: Lumbar spine MRI 05/25/2014. FINDINGS: For the purpose of the report the L5-S1 disc space will be located on axial image 34 of 37. Straightening of the lumbar spine. Posterior decompression fusion at L2-L3 with pedicle screws and ro ds. Moderate to severe disc space narrowing at L1-L2 which has progressed. Endplate signal abnormalit y at L1-L2 favors degenerative change. No significant loss of height to suggest a fracture. No sublux ation. The L4-L5 vertebral bodies are fused. The conus terminates at the L1 level. Laminectomies from L2 through L5. Paravertebral soft tissues are within normal limits. Partially visualized T2 hyperint ense lesions within the kidneys. These favor cysts. Bilateral sacroiliac screws are partially visuali zed. The left L2 pedicle screw tip appears to enter into the L1-L2 disc space. However, this is diffi cult to assess by MRI. Soft tissue edema at the laminectomy sites favors postoperative change. There is a disc spacer at L5-S1 and L2-L3. L1-L2: Broad-based posterior disc bulge with ligamentum and facet hypertrophy resulting in moderate c entral canal and severe bilateral neural foraminal narrowing. L2-L3: No significant central canal narrowing due to the posterior decompression. There is mild bilat eral neural foraminal narrowing. L3-L4: No significant central canal narrowing due to the posterior decompression. There is mild bilat eral neural foraminal narrowing. L4-L5: No significant central canal narrowing due to the posterior decompression. There is moderate b ilateral neural foraminal narrowing. L5-S1: No significant central canal narrowing due to the posterior decompression. Moderate right and mild left neural foraminal narrowing. IMPRESSION: 1. Extensive postoperative changes as described above. 2. No fractures identified within the lumbar spine. 3. Endplate signal abnormality at L1-L2 favors long-standing degenerative change. 4. Moderate to severe disc space narrowing at L1-L2 which has progressed. There is an associated broa d-based posterior disc bulge and ligamentum flavum and facet hypertrophy at this level resulting in m oderate central canal narrowing. As also severe bilateral neural foraminal narrowing at this level. ACT 112: Negative or not required by law. Electronically signed by: Jorge Casanova M.D. 12/03/2019 5:10 PM
[2019-12-03] MEDS ORDERED: DEXAMETHASONE SOD INJ 10 MG/ML VIAL IV ONE (18:33)
--- NOTE | 2019-12-03 19:58 | History & Physical Report ---
Date of Service December 03, 2019 Assessment & Plan (1) Intractable back pain: Chronic back pain x8 years/status post lumbar spinal fusion/lumbar disc herniation with radiculopathy/sacroiliitis- Admit for observation to medical surgical floor Given Decadron 10 mg IV in the ED, will continue 6 mg IV every 6 hours. Continue morphine 15 mg p.o. every 12 hours, and oxycodone 5 mg p.o. every 4 hours as needed breakthrough pain. Acetaminophen 650 mg p.o. every 6 hours PRN mild pain or temperature. Consult his spinal surgeon Dr. Merida May benefit from a pain management consult if no surgical intervention Present on Admission?: Yes (2) S/P lumbar spinal fusion: See above Present on Admission?: Yes (3) Anxiety: Patient reports that he became more anxious about his chronic pain today, and presented to the ED for assessment. He is not on any specific medications at this time. We will start duloxetine 20 mg p.o. at bedtime to address anxiety and chronic pain symptoms Present on Admission?: Yes (4) Atrial fibrillation: Atrial fibrillation/hypertension- continue atenolol 25 mg every morning. For now, reduce furosemide to from 40 to 20 mg p.o. twice daily. Hold Pradaxa, for any possible procedure by spinal surgery or pain management. Start heparin drip low-dose no bolus as a bridge. Present on Admission?: Yes (5) Hypertension: See above Present on Admission?: Yes (6) Lumbar disc herniation with radiculopathy: See above Present on Admission?: Yes (7) Sacroiliitis: See above Present on Admission?: Yes (8) CKD (chronic kidney disease): Decrease furosemide from 40 mg twice daily to 20 mg twice daily. Hold lisinopril. Follow serial laboratories Present on Admission?: Yes History of Present Illness Chief Complaint: Patient presents to the emergency department for assessment of low back pain Primary Care Provider: Ankit Mckenzie MD The patient is a 74-year-old male with a past medical history including hypertension, history of CVA, sacroiliitis, kidney stones, CVA, lumbar spine fusion, intractable back pain, radiculopathy, lumbar stenosis with neurogenic claudication, hyperlipidemia, COPD, CHF and BPH. He presents to the emergency department with complaint of 8 years of back pain, has had multiple surgeries, and became anxious today. He denies any new pains. He has not had any recent travels or sick exposures. Allergies Allergy/AdvReac Type Severity Reaction Status Date / Time magnesium sulfate Allergy Severe HIVES Verified 12/03/19 16:05 adhesive Allergy Intermediate BANDAIDS- Verified 12/03/19 16:05 SKIN BREAKS OUT codeine Allergy Intermediate RASH Verified 12/03/19 16:05 Iodinated Contrast Media Allergy Intermediate NOTED Verified 12/03/19 16:05 IVP DYE - RASH latex Allergy Intermediate SKIN Verified 12/03/19 16:05 IRRITATION tolterodine Allergy Intermediate RASH Verified 12/03/19 16:05 Sulfa (Sulfonamide Allergy Unknown UNKNOWN Verified 12/03/19 16:05 Antibiotics) REACTION amoxicillin Allergy Pruritus Verified 12/03/19 16:05 Home Medications Home Medications Medication Instructions Recorded Confirmed Type Pradaxa 150 mg PO BID 03/20/19 12/03/19 History Soothe XP 1 drp OPHTHALMIC (EYE) QAM 03/20/19 12/03/19 History acetaminophen 650 mg PO Q6H PRN 03/20/19 12/03/19 History albuterol sulfate 1 - 2 puff INHALATION Q6H PRN 03/20/19 12/03/19 History atenolol 25 mg PO QAM 03/20/19 12/03/19 History cholecalciferol (vitamin D3) 25 mcg PO QAM 03/20/19 12/03/19 History [Vitamin D3] lisinopril 10 mg PO QAM 03/20/19 12/03/19 History omega-3 fatty acids-fish oil [Fish 1 cap PO QAM 03/20/19 12/03/19 History Oil] polyethylene glycol 3350 [Miralax] 17 g PO QPM 03/20/19 12/03/19 History simvastatin 20 mg PO PM 03/20/19 12/03/19 History glucos sul [id number] 1 cap PO BID 05/19/19 12/03/19 History [Glucosamine Chondroitin] oxycodone 5 mg PO Q4 PRN 05/19/19 12/03/19 History furosemide 40 mg PO BID 10/28/19 12/03/19 History tamsulosin 0.4 mg PO QAM 10/28/19 12/03/19 History morphine 15 mg PO Q12 12/03/19 12/03/19 History Past Med/Surg History Medical History Atrial fibrillation Carotid artery stenosis <50% B/L ICA stenosis per 01/2018 carotid imaging Chronic constipation CKD (chronic kidney disease) creatinine baseline in the 1.6-1.9 range per chart review GERD (gastroesophageal reflux disease) controlled History of kidney stones Hypertension Nocturia Obesity Spinal stenosis Stroke multiple, most 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 (per cardiology note, hx 1997, 2000)- no residual effects Surgical History History of back surgery Hx of cervical spine surgery Hx of cystoscopy FOR STONE REMOVAL Hx of lithotripsy Social History Smoking Status: Former smoker Tobacco Type: Cigarettes Second Hand Exposure: No; Hx Alcohol Use: No Hx Substance Use: No Preferred Language: Citizen Of [place] Communication Ability: Effective Beliefs That Will Affect Care: None Current Living Situation: Alone Current 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 Situation Comment: 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 Feels Safe at Home: Yes Review of Systems Review of Systems: The patient denies chest pain, palpitations, shortness of breath, dyspnea on exertion, cough, lower extremity swelling, sore throat, fevers, chills, sweats, weight change, fatigue, nausea, vomiting, diarrhea , constipation, abdominal pain, pelvic pain, blood in urine or stool, dysuria, urinary frequency or urgency, lightheadedness, dizziness, headache, memory loss, loss of consciousness, rash, abnormal bruising or bleeding, imbalance, focal or generalized weakness, numbness or tingling in arms , generalized arthralgias or myalgias, neck pain, or night sweats. The review of systems is otherwise negative other than for that already noted above, and at least 10 systems have been reviewed. Physical Exam Physical Exam: The patient is awake, alert and oriented 3, well developed and well nourished, normocephalic and atraumatic, lying in bed and in no acute d istress. HEENT--PERRL, EOMI, mucous membranes and oropharynx normal Neck--supple. No JVD. No bruits. Thyroid normal, trachea midline, no adenopathy. Heart--normal S1 and S2. No murmurs, rubs or gallops. Lungs--clear bilaterally, no respiratory distress, no accessory muscle use. Abdomen--normal bowel sounds and soft. Nontender. Nondistended. Obese Extremities--no cyanosis or clubbing. No edema. Dermatologic--normal skin turgor, normal color, no abnormal lymph nodes, no rash. Neurologic--cranial nerves II through XII grossly intact. Rheumatologic--exam limited due to back pain Psychiatric--normal affect. Results & Data Results & Data ([facility]) Vital Signs (Past 12 Hours) Vital Signs Temp Pulse Pulse Resp BP BP Pulse Ox 12/03/19 19:01 62 18 134/73 94 12/03/19 18:30 61 16 133/72 94 12/03/19 18:01 63 15 110/76 94 12/03/19 17:30 18 125/68 93 12/03/19 17:07 18 128/67 93 12/03/19 15:41 69 19 147/82 H 95 12/03/19 14:51 94 12/03/19 14:23 98.1 F 98 H 18 133/73 95 Laboratory Results Laboratory Results WBC 7.08 K/uL (4.8-10.8) 12/03/19 15:25 RBC 4.40 M/uL (4.7-6.1) L 12/03/19 15:25 Hgb 13.2 g/dL (14.0-18.0) L 12/03/19 15:25 Hct 39.6 % (42-52) L 12/03/19 15:25 MCV 90.0 fL (80-100) 12/03/19 15:25 MCH 30.0 pg (25-34) 12/03/19 15:25 MCHC 33.3 g/dL (32-36) 12/03/19 15:25 RDW Std Deviation 44.2 fL (36.4-46.3) 12/03/19 15:25 RDW Coeff of Valerie 13.3 % (11.5-14.5) 12/03/19 15:25 Plt Count 294 K/uL (130-400) 12/03/19 15:25 MPV 9.1 fL (7.4-10.4) 12/03/19 15:25 Immature Gran % (Auto) 0.6 % 12/03/19 15:25 Neut % (Auto) 69.3 % 12/03/19 15:25 Lymph % (Auto) 19.1 % 12/03/19 15:25 Hardin % (Auto) 8.5 % 12/03/19 15:25 Eos % (Auto) 2.1 % 12/03/19 15:25 Baso % (Auto) 0.4 % 12/03/19 15:25 Neut # (Auto) 4.91 K/uL (1.4-6.5) 12/03/19 15:25 Lymph # (Auto) 1.35 K/uL (1.2-3.4) 12/03/19 15:25 Hardin # (Auto) 0.60 K/uL (0.11-0.59) H 12/03/19 15:25 Eos # (Auto) 0.15 K/uL (0-0.5) 12/03/19 15:25 Baso # (Auto) 0.03 K/uL (0-0.2) 12/03/19 15:25 Immature Gran # (Auto) 0.04 K/uL (0.00-0.02) H 12/03/19 15:25 Sodium 140 mmol/L (136-145) 12/03/19 15:25 Potassium 4.1 mmol/L (3.5-5.1) 12/03/19 15:25 Chloride 105 mmol/L (98-107) 12/03/19 15:25 Carbon Dioxide 27 mmol/L (21-32) 12/03/19 15:25 Anion Gap 8.0 (3-11) 12/03/19 15:25 BUN 29 mg/dl (7-18) H 12/03/19 15:25 Creatinine 1.97 mg/dl (0.6-1.4) H 12/03/19 15:25 Est Cr Clr Drug Dosing 31.6 ml/min 12/03/19 15:25 Est GFR ( Amer) 37.4 12/03/19 15:25 Est GFR (Non-Af Amer) 32.3 12/03/19 15:25 BUN/Creatinine Ratio 14.8 (10-20) 12/03/19 15:25 Glucose 120 mg/dl (70-99) H 12/03/19 15:25 Calcium 8.9 mg/dl (8.5-10.1) 12/03/19 15:25 Total Bilirubin 0.3 mg/dl (0.2-1) 12/03/19 15:25 AST 16 U/L (15-37) 12/03/19 15:25 ALT 26 U/L (12-78) 12/03/19 15:25 Alkaline Phosphatase 77 U/L (45-117) 12/03/19 15:25 Total Protein 7.5 gm/dl (6.4-8.2) 12/03/19 15:25 Albumin 3.1 gm/dl (3.4-5.0) L 12/03/19 15:25 Globulin 4.4 gm/dl (2.5-4.0) H 12/03/19 15:25 Albumin/Globulin Ratio 0.7 (0.9-2) L 12/03/19 15:25 Lipase 115 U/L (73-393) 12/03/19 15:25 Urine Color Yellow 12/03/19 16:04 Urine Appearance Clear (Clear) 12/03/19 16:04 Urine pH 5.5 (4.5-7.5) 12/03/19 16:04 Ur Specific [place] 1.012 (1.000-1.030) 12/03/19 16:04 Urine Protein Trace (Negative) H 12/03/19 16:04 Urine Glucose (UA) Negative (Negative) 12/03/19 16:04 Urine Ketones Negative (Negative) 12/03/19 16:04 Urine Blood 1+ (Negative) H 12/03/19 16:04 Urine Nitrite Negative (Negative) 12/03/19 16:04 Urine Bilirubin Negative (Negative) 12/03/19 16:04 Urine Urobilinogen Negative (Negative) 12/03/19 16:04 Ur Leukocyte Esterase Negative (Negative) 12/03/19 16:04 Urine WBC (Auto) 1-5 /hpf (0-5) 12/03/19 16:04 Urine RBC (Auto) 0-4 /hpf (0-4) 12/03/19 16:04 U Hyaline Cast (Auto) 1-5 /lpf (0-5) 12/03/19 16:04 U Epithel Cells (Auto) 0-5 /lpf (0-5) 12/03/19 16:04 Urine Bacteria (Auto) Negative (Negative) 12/03/19 16:04 Diagnostic Findings [place], [place] [phone] Magnetic Resonance Report Patient: SRINIVASAN LOVE AAdmit Date: 12/03/19 MR#: [id number]: [address] Acct ID:[id number]: [facility] Zip: [place] [address] Age: 74Location: ED Sex: MRoom/Bed: Att Phy:Diagnosis: SEVERE PAIN ON LOWER RIGHT SIDE Reina Phy: ANKIT MCKENZIE MDService Date: 12/03/19 Fam Phy:Interpreting Phy: Jorge Casanova MD Admit Phy: Ordering Phy: Kimani Buckner DO cc: ~ LUMBAR SPINE MRI HISTORY: Low back pain. TECHNIQUE: Multiplanar multisequence MRI of the lumbar spine was performed without the use of contrast. COMPARISON: Lumbar spine MRI 05/25/2014. FINDINGS: For the purpose of the report the L5-S1 disc space will be located on axial image 34 of 37. Straightening of the lumbar spine. Posterior decompression fusion at L2-L3 with pedicle screws and rods. Moderate to severe disc space narrowing at L1-L2 which has progressed. Endplate signal abnormality at L1-L2 favors degenerative change. No significant loss of height to suggest a fracture. No subluxation. The L4-L5 vertebral bodies are fused. The conus terminates at the L1 level. Laminectomies from L2 through L5. Paravertebral soft tissues are within normal limits. Partially visualized T2 hyperintense lesions within the kidneys. These favor cysts. Bilateral sacroiliac screws are partially visualized. The left L2 pedicle screw tip appears to enter into the L1-L2 disc space. However, this is difficult to assess by MRI. Soft tissue edema at the laminectomy sites favors postoperative change. There is a disc spacer at L5-S1 and L2-L3. L1-L2: Broad-based posterior disc bulge with ligamentum and facet hypertrophy resulting in moderate central canal and severe bilateral neural foraminal narrowing. L2-L3: No significant central canal narrowing due to the posterior decompression. There is mild bilateral neural foraminal narrowing. L3-L4: No significant central canal narrowing due to the posterior decompression. There is mild bilateral neural foraminal narrowing. L4-L5: No significant central canal narrowing due to the posterior decompression. There is moderate bilateral neural foraminal narrowing. L5-S1: No significant central canal narrowing due to the posterior decompression. Moderate right and mild left neural foraminal narrowing. IMPRESSION: 1. Extensive postoperative changes as described above. 2. No fractures identified within the lumbar spine. 3. Endplate signal abnormality at L1-L2 favors long-standing degenerative change. 4. Moderate to severe disc space narrowing at L1-L2 which has progressed. There is an associated broad-based posterior disc bulge and ligamentum flavum and facet hypertrophy at this level resulting in moderate central canal narrowing. As also severe bilateral neural foraminal narrowing at this level. ACT 112: Negative or not required by law. Electronically signed by: Jorge Casanova M.D. 12/03/2019 5:10 PM Dictated: 12/03/191700 Transcribed: 12/03/191700 [place], [place] [phone] XRay Report Patient: SRINIVASAN LOVE AAdmit Date: 12/03/19 MR#: [id number]: [address] Acct ID:[id number]: Date: [address] [place] [address] Zip: [place] [address] Age: 74Location: ED Sex: MRoom/Bed: Att Phy:Diagnosis: SEVERE PAIN ON LOWER RIGHT SIDE Reina Phy: ANKIT MCKENZIE MDService Date: 12/03/19 Fam Phy:Interpreting Phy: Jorge Casanova MD Admit Phy: Ordering Phy: Kimani Buckner DO cc: ~ XR chest 1V portable HISTORY: Shortness of breath. COMPARISON: Chest 10/28/2019. FINDINGS: The lungs are clear. Cardiac silhouette is normal in size. No pleural effusions. No pneumothorax. IMPRESSION: No acute process. ACT 112: Negative or not required by law. Electronically signed by: Jorge Casanova M.D. 12/03/2019 3:44 PM Dictated: 12/03/19 1544 Transcribed: 12/03/191543 Code Status & VTE Plan Code Status Full code VTE Prophylaxis Plan VTE Prophylaxis will be ordered: Yes PG Care Time/CCT Total # of Minutes Spent Total Time Spent with Patient: Total time spent is greater than 50% in coordination of care (as documented) at patient's floor/unit and/or counseling patient: Coding Level of Care Code 93968 OBS Care - Level 3 Diagnoses Intractable back pain M54.9 S/P lumbar spinal fusion Z98.1 Anxiety F41.9 Atrial fibrillation I48.91 Hypertension I10 Lumbar disc herniation with radiculopathy M51.16 Sacroiliitis M46.1 CKD (chronic kidney disease) N18.9
[2019-12-03] MEDS ORDERED: HEPARIN SODIUM/DEXTROSE 25,000 UNITS/500 ML BAG IV SCH (20:00)
[2019-12-03] MEDS ORDERED: Heparin IV Low Dose *NO* Bolus IV SCH (20:00)
[2019-12-03] MEDS ORDERED: HEPARIN 25000 UNIT/500 ML D5W IV ONE (20:03)
[2019-12-03] MEDS ORDERED: ONDANSETRON INJ 2 MG/ML 2 ML VIAL IV PRN (20:41)
[2019-12-03] MEDS ORDERED: ACETAMINOPHEN 325 MG TAB PO PRN ×2 (20:41)
[2019-12-03] MEDS ORDERED: OXYCODONE HCL IR 5 MG TAB (IMMEDIATE RELEASE) PO PRN (20:47)
[2019-12-03] MEDS ORDERED: NON-FORMULARY MEDICATION (Glucos Sul 2kcl-Msm-Chond-C-Mn [Glucosamine Chondroitin] 1 CAP) PO SCH (21:00)
[2019-12-03 21:15] LABS: Basophils # (auto) 0.02 K/uL (0-0.2); Basophils % (auto) 0.3 %; Eosinophils # (auto) 0.14 K/uL (0-0.5); Eosinophils % (auto) 2.2 %; Hematocrit (blood only) 36.7 % (42-52); Hemoglobin 12.2 g/dL (14.0-18.0); Immature Granulocytes # (auto) 0.01 K/uL (0.00-0.02); Immature Granulocytes % (auto) 0.2 %; Lymphocytes % (auto) 10.9 %; Mean Corpuscular Hemoglobin 30.1 pg (25-34); Mean Corpuscular Volume 90.6 fL (80-100); Mean Platelet Volume 9.1 fL (7.4-10.4); Monocytes # (auto) 0.13 K/uL (0.11-0.59); Neutrophils # (auto) 5.43 K/uL (1.4-6.5); Neutrophils % (auto) 84.4 %; Platelet Count 281 K/uL (130-400); RDW Coefficient of Variation 13.3 % (11.5-14.5); RDW Standard Deviation 44.3 fL (36.4-46.3); Red Blood Count 4.05 M/uL (4.7-6.1); White Blood Count 6.43 K/uL (4.8-10.8)
[2019-12-03 21:19] LABS: Mean Corpuscular Hgb Conc 33.2 g/dL (32-36)
[2019-12-03 21:25] LABS: INR 1.1 (0.9-1.1); Partial Thromboplastin Ratio 1.5; Partial Thromboplastin Time 42.3 Seconds (21.0-31.0); Prothrombin Time 11.9 Seconds (9.0-12.0)
[2019-12-03] MEDS: FUROSEMIDE 40 MG TAB PO SCH (21:37)
[2019-12-03] MEDS: DULOXETINE HCL 20 MG CAP PO SCH (21:37)
[2019-12-03] MEDS: ATENOLOL 25 MG TABLET PO SCH (21:37)
[2019-12-03] MEDS: MoRPHine SULFATE CR 15 MG TABCR PO SCH (21:37)
[2019-12-03] MEDS: SIMVASTATIN 20 MG TAB PO SCH (21:37)
[2019-12-03] MEDS: POLYETHYLENE (MIRALAX) 17 GM PACK PO SCH (21:37)
--- NOTE | 2019-12-03 22:30 | History & Physical Report ---
Date of Service December 03, 2019 Assessment & Plan Admission and Anticipated Discharge Date Admission Date: December 03, 2019 History of Present Illness Primary Care Provider: Ankit Mcgowan MD Allergies Allergy/AdvReac Type Severity Reaction Status Date / Time magnesium sulfate Allergy Severe HIVES Verified 12/03/19 16:05 adhesive Allergy Intermediate BANDAIDS- Verified 12/03/19 16:05 SKIN BREAKS OUT codeine Allergy Intermediate RASH Verified 12/03/19 16:05 Iodinated Contrast Media Allergy Intermediate NOTED Verified 12/03/19 16:05 IVP DYE - RASH latex Allergy Intermediate SKIN Verified 12/03/19 16:05 IRRITATION tolterodine Allergy Intermediate RASH Verified 12/03/19 16:05 Sulfa (Sulfonamide Allergy Unknown UNKNOWN Verified 12/03/19 16:05 Antibiotics) REACTION amoxicillin Allergy Pruritus Verified 12/03/19 16:05 Home Medications Home Medications Medication Instructions Recorded Confirmed Type Pradaxa 150 mg PO BID 03/20/19 12/03/19 History Soothe XP 1 drp OPHTHALMIC (EYE) QAM 03/20/19 12/03/19 History acetaminophen 650 mg PO Q6H PRN 03/20/19 12/03/19 History albuterol sulfate 1 - 2 puff INHALATION Q6H PRN 03/20/19 12/03/19 History atenolol 25 mg PO QAM 03/20/19 12/03/19 History cholecalciferol (vitamin D3) 25 mcg PO QAM 03/20/19 12/03/19 History [Vitamin D3] lisinopril 10 mg PO QAM 03/20/19 12/03/19 History omega-3 fatty acids-fish oil [Fish 1 cap PO QAM 03/20/19 12/03/19 History Oil] polyethylene glycol 3350 [Miralax] 17 g PO QPM 03/20/19 12/03/19 History simvastatin 20 mg PO PM 03/20/19 12/03/19 History glucos sul [id number]-Mn 1 cap PO BID 05/19/19 12/03/19 History [Glucosamine Chondroitin] oxycodone 5 mg PO Q4 PRN 05/19/19 12/03/19 History furosemide 40 mg PO BID 10/28/19 12/03/19 History tamsulosin 0.4 mg PO QAM 10/28/19 12/03/19 History morphine 15 mg PO Q12 12/03/19 12/03/19 History Past Med/Surg History Medical History (Updated 12/03/19 @ 21:45 by Kimani Buckner DO) Atrial fibrillation Carotid artery stenosis <50% B/L ICA stenosis per 01/2018 carotid imaging Chronic constipation CKD (chronic kidney disease) creatinine baseline in the 1.6-1.9 range per chart review GERD (gastroesophageal reflux disease) controlled History of kidney stones Hypertension Nocturia Obesity Spinal stenosis Stroke multiple, most 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 (per cardiology note, hx 1997, 2000)- no residual effects Surgical History History of back surgery Hx of cervical spine surgery Hx of cystoscopy FOR STONE REMOVAL Hx of lithotripsy Social History Smoking Status: Former smoker Tobacco Type: Cigarettes Second Hand Exposure: No; Hx Alcohol Use: No Hx Substance Use: No Preferred Language: [place] Communication Ability: Effective 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 Beliefs That Will Affect Care: None Current Living Situation: Alone 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 Feels Safe at Home: Yes Results & Data Results & Data ([facility]) Vital Signs (Past 12 Hours) Vital Signs Temp Pulse Pulse Resp BP BP Pulse Ox 12/03/19 20:17 98.1 F 69 16 147/75 H 95 12/03/19 20:16 68 20 133/66 97 12/03/19 19:45 67 20 140/68 95 12/03/19 19:01 62 18 134/73 94 12/03/19 18:30 61 16 133/72 94 12/03/19 18:01 63 15 110/76 94 12/03/19 17:30 18 125/68 93 12/03/19 17:07 18 128/67 93 12/03/19 15:41 69 19 147/82 H 95 12/03/19 14:51 94 12/03/19 14:23 98.1 F 98 H 18 133/73 95 Code Status & VTE Plan VTE Prophylaxis Plan VTE Prophylaxis will be ordered: Yes PG Care Time/CCT Total # of Minutes Spent Total Time Spent with Patient: Total time spent is greater than 50% in coordination of care (as documented) at patient's floor/unit and/or counseling patient: Coding
[2019-12-04 02:51] LABS: Partial Thromboplastin Ratio 1.9
[2019-12-04] MEDS: dexAMETHasone 4 MG in SYRINGE 0 ML IV SCH ×4 (04:30→21:07)
[2019-12-04] MEDS: MoRPHine SULFATE CR 15 MG TABCR PO SCH ×2 (08:43→21:07)
[2019-12-04] MEDS: FUROSEMIDE 40 MG TAB PO SCH ×2 (08:44→16:08)
[2019-12-04] MEDS: TAMSULOSIN HCL 0.4 MG CAP PO SCH (08:44)
[2019-12-04] MEDS: CHOLECALCIFEROL 1,000 UNITS 25 MCG TAB PO SCH (08:45)
[2019-12-04] MEDS: lisinopriL 10 MG TAB PO SCH (08:45)
[2019-12-04] MEDS: OMEGA-3 (PURIFIED FISH OIL) 1 GM CAP PO SCH (08:45)
[2019-12-04] MEDS: ATENOLOL 25 MG TABLET PO SCH (08:46)
[2019-12-04] MEDS ORDERED: LIGHT MINERAL OIL MINERAL OIL OP SCH (09:00)
--- NOTE | 2019-12-04 12:36 | Orthopedic Consultation ---
Date of Consultation December 04, 2019 Assessment & Plan (1) Chronic back pain: At this time his MRI does demonstrate advanced disease at the L1 to level. He has fairly significant bilateral neural foraminal disease I am concerned he is getting an L1 radiculopathy. I would like him to undergo a diagnostic therapeutic right L1 nerve root block. I can arrange this on an outpatient basis. This will allow us to determine if this is in fact his pain generator. History of Present Illness Reason for Consultation: Severe back pain Attending Physician: Mary Rojas MD History of Present Illness This is a 74-year-old male known to me that presents with onset of severe worsening right flank pain. Is markedly exacerbated with standing and walking. He does obtain some relief with lying supine. He gets occasional right anterior thigh symptoms but these are rare. It is not clearly radicular in nature. He i s requiring oxycodone for pain control. Allergies Allergy/AdvReac Type Severity Reaction Status Date / Time magnesium sulfate Allergy Severe HIVES Verified 12/03/19 16:05 adhesive Allergy Intermediate BANDAIDS- Verified 12/03/19 16:05 SKIN BREAKS OUT codeine Allergy Intermediate RASH Verified 12/03/19 16:05 Iodinated Contrast Media Allergy Intermediate NOTED Verified 12/03/19 16:05 IVP DYE - RASH latex Allergy Intermediate SKIN Verified 12/03/19 16:05 IRRITATION tolterodine Allergy Intermediate RASH Verified 12/03/19 16:05 Sulfa (Sulfonamide Allergy Unknown UNKNOWN Verified 12/03/19 16:05 Antibiotics) REACTION amoxicillin Allergy Pruritus Verified 12/03/19 16:05 Home Medications Home Medications Medication Instructions Recorded Confirmed Type Pradaxa 150 mg PO BID 03/20/19 12/03/19 History Soothe XP 1 drp OPHTHALMIC (EYE) QAM 03/20/19 12/03/19 History acetaminophen 650 mg PO Q6H PRN 03/20/19 12/03/19 History albuterol sulfate 1 - 2 puff INHALATION Q6H PRN 03/20/19 12/03/19 History atenolol 25 mg PO QAM 03/20/19 12/03/19 History cholecalciferol (vitamin D3) 25 mcg PO QAM 03/20/19 12/03/19 History [Vitamin D3] lisinopril 10 mg PO QAM 03/20/19 12/03/19 History omega-3 fatty acids-fish oil [Fish 1 cap PO QAM 03/20/19 12/03/19 History Oil] polyethylene glycol 3350 [Miralax] 17 g PO QPM 03/20/19 12/03/19 History simvastatin 20 mg PO PM 03/20/19 12/03/19 History glucos sul [id number] 1 cap PO BID 05/19/19 12/03/19 History [Glucosamine Chondroitin] oxycodone 5 mg PO Q4 PRN 05/19/19 12/03/19 History furosemide 40 mg PO BID 10/28/19 12/03/19 History tamsulosin 0.4 mg PO QAM 10/28/19 12/03/19 History morphine 15 mg PO Q12 12/03/19 12/03/19 History Patient History Medical History (Updated 12/03/19 @ 21:45 by Kimani uBckner DO) Atrial fibrillation Carotid artery stenosis <50% B/L ICA stenosis per 01/2018 carotid imaging Chronic constipation CKD (chronic kidney disease) creatinine baseline in the 1.6-1.9 range per chart review GERD (gastroesophageal reflux disease) controlled History of kidney stones Hypertension Nocturia Obesity Spinal stenosis Stroke multiple, most 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 (per cardiology note, hx 1997, 2000)- no residual effects Surgical History History of back surgery Hx of cervical spine surgery Hx of cystoscopy FOR STONE REMOVAL Hx of lithotripsy Social History Smoking Status: Former smoker Tobacco Type: Cigarettes Second Hand Exposure: No; Hx Alcohol Use: No Hx Substance Use: No Preferred Language: [place] Communication Ability: Effective Returned Case Inspector Required: No Beliefs That Will Affect Care: None marital status: Single Current Living Situation: Alone 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 He does take a few steps around the room with assistance. This demonstrates significant pain in his back. There is no radiation down his legs. No numbness or tingling in lower extremities. Results & Data ([facility]) Vital Signs (Past 12 Hours) Vital Signs Temp Pulse Resp BP Pulse Ox 12/04/19 07:01 36.4 C L 59 L 16 127/80 96 (1) Chronic back pain Back pain laterality: right Back pain location: low back pain Sciatica presence: unspecified whether sciatica present Qualified Code(s): M54.5 - Low back pain; G89.29 - Other chronic pain
[2019-12-04] MEDS ORDERED: SERTRALINE HCL 100 MG TABLET PO ONE (15:19)
--- NOTE | 2019-12-04 17:43 | Hospitalist Progress Note ---
Date of Service December 04, 2019 Assessment & Plan (1) Chronic back pain: Presented with intractable back pain with radiation down to left hip left leg MRI of lumbar spine shows moderate to severe L1 spinal stenosis-possibly causing radiculopathy Appreciate input from Dr. Merida Recommends continue steroids, pain control, PT OT Palpation L1 nerve block Discussed with patient at bedside, frustrated with ongoing back pain,-which is significantly compromised his quality of life Patient follows with pain clinic at [place], has been on both long and short acting morphine, Feels that regimen is not providing any benefit to him Pain management consulted, patient may treat with trial of gabapentin for addition of other nonnarcotic pain medication Continue PT OT To discharge home when medically stable Chronic A. fib: Continue atenolol DC IV heparin, Pradaxa resumed Anxiety disorder: Continue Zoloft, as needed Ativan Admission and Anticipated Discharge Date Admission Date: December 03, 2019 Subjective Has persistent back pain, worse with activity, and movement No urinary retention, no saddle anesthesia Appreciate input by orthopedics Outpatient nerve block recommended Resume Pradaxa, IV heparin discontinued Pain management consulted for further assistance in pain control Patient's daughter present at bedside, updated Review of Systems Review of Systems: All systems reviewed & are unremarkable except as noted in HPI & below Musculoskeletal: + back pain and + radicular pain Physical Exam Constitutional: WD/WN, vitals as above Eyes: PERRL, conjunctivae normal, anicteric sclerae ENMT: external ear and nose normal, oropharynx normal Neck: trachea midline, no thyromegaly Respiratory: normal respiratory effort, lungs clear to auscultation Cardiovascular: RRR, no murmur, no edema Gastrointestinal (Abdomen): Percussion/Palpation: abdomen soft; abdomen no ntender Musculoskeletal: Back pain Skin: no rashes, warm and dry Neurologic: PERRL, EOMI, accommodation nl, no face palsy, no dysarthria Psychiatric: A+Ox3, euthymic affect Results & Data Results & Data ([facility]) Vital Signs (Past 12 Hours) Vital Signs Temp Pulse Resp BP Pulse Ox 12/04/19 15:13 36.8 C 63 16 122/69 94 12/04/19 07:01 36.4 C L 59 L 16 127/80 96 (1) Chronic back pain Back pain laterality: right Back pain location: low back pain Sciatica presence: unspecified whether sciatica present Qualified Code(s): M54.5 - Low back pain; G89.29 - Other chronic pain
[2019-12-04] MEDS: SIMVASTATIN 20 MG TAB PO SCH (21:07)
[2019-12-04] MEDS: DULOXETINE HCL 20 MG CAP PO SCH (21:07)
[2019-12-04] MEDS: DABIGATRAN ETEXILATE 75 MG CAP PO SCH (21:07)
[2019-12-04] MEDS: POLYETHYLENE (MIRALAX) 17 GM PACK PO SCH (21:07)
[2019-12-05] MEDS: dexAMETHasone 4 MG in SYRINGE 0 ML IV SCH ×2 (04:58→09:59)
[2019-12-05 06:09] LABS: Mean Corpuscular Hemoglobin 30.7 pg (25-34); Mean Corpuscular Hgb Conc 34.3 g/dL (32-36); Mean Corpuscular Volume 89.5 fL (80-100); Mean Platelet Volume 9.5 fL (7.4-10.4); Platelet Count 292 K/uL (130-400); RDW Coefficient of Variation 13.3 % (11.5-14.5); RDW Standard Deviation 43.1 fL (36.4-46.3); Red Blood Count 3.91 M/uL (4.7-6.1); White Blood Count 13.39 K/uL (4.8-10.8)
[2019-12-05] MEDS ORDERED: TRIAMCINOLONE ACET 40 MG/ML VIAL ONE (08:16)
[2019-12-05] MEDS ORDERED: KETOROLAC 30 MG/ML VIAL ONE (08:16)
--- NOTE | 2019-12-05 08:28 | Orthopedic Progress Note ---
Date of Service December 05, 2019 Assessment & Plan (1) Chronic back pain: Admission and Anticipated Discharge Date Admission Date: December 03, 2019 At this time pain management is considering some trigger point injections. I completely support this plan. We will assess his response. If he continues to have pain we will move towards outpatient diagnostic therapeutic L1 nerve root blocks. Subjective Patient continues to have right flank pain without clear radicular components. Physical Exam Physical Exam: Patient sitting up at side of bed neurologically intact. Results & Data ([facility]) Vital Signs (Past 12 Hours) Vital Signs Temp Pulse Resp BP Pulse Ox 12/05/19 08:14 36.6 C 57 L 16 150/80 H 97 12/04/19 23:00 36.6 C 56 L 16 125/68 95 (1) Chronic back pain Back pain laterality: right Back pain location: low back pain Sciatica presence: unspecified whether sciatica present Qualified Code(s): M54.5 - Low back pain; G89.29 - Other chronic pain
[2019-12-05] MEDS: SERTRALINE HCL 100 MG TABLET PO SCH (08:35)
[2019-12-05] MEDS: MoRPHine SULFATE CR 15 MG TABCR PO SCH ×2 (08:35→21:16)
[2019-12-05] MEDS: DABIGATRAN ETEXILATE 75 MG CAP PO SCH ×2 (08:35→21:16)
[2019-12-05] MEDS: lisinopriL 10 MG TAB PO SCH (08:36)
[2019-12-05] MEDS: OMEGA-3 (PURIFIED FISH OIL) 1 GM CAP PO SCH (08:36)
[2019-12-05] MEDS: ATENOLOL 25 MG TABLET PO SCH (08:36)
[2019-12-05] MEDS: TAMSULOSIN HCL 0.4 MG CAP PO SCH (08:36)
[2019-12-05] MEDS: FUROSEMIDE 40 MG TAB PO SCH (08:36)
[2019-12-05] MEDS: CHOLECALCIFEROL 1,000 UNITS 25 MCG TAB PO SCH (08:36)
--- NOTE | 2019-12-05 09:13 | Pain Management Consultation ---
Date of Consultation December 05, 2019 Assessment & Plan (1) Lumbar post-laminectomy syndrome: * Recommend a trial of trigger point injections at today's visit--refer to procedure note below. * Dr. Merida potentially planning for outpatient L1-2 selective nerve root block for diagnostic purposes * Recommend progressing Cymbalta dosing moving forward to address anxiety and chronic low back pain with likely diminished dosing of sertraline--consider involvement with behavioral health * Opiate therapy appears to be providing minimal benefit-patient was encouraged to discuss diminished reliance upon discharge with his pain service * Will initiate K pad heat TRIGGER POINT INJECTION Diagnosis: Myofascial pain with spasm Side/Level injected: Right quadratus lumborum x4, right superior gluteal x1 Surgeon: Giovanny HUA Prior to starting, the Patients diagnosis and the procedure were reviewed with the patient in detail. Possible risks and complications including infection, bleeding, damage to surrounding structures and increased pain were discussed. Alternative therapies were also reviewed. Patients questions were answered and they agreed to proceed. Informed consent was obtained. Allergies and medication list was reviewed. The patient was brought to the procedure room and placed in prone position. Immediately prior to starting the procedure, a ``time out was conducted with the staff and the patient where the patient was identified, proposed procedure was verified, consent was reviewed and the proper site for the planned procedure was identified. Patient was not given any intravenous sedation and constant verbal contact was maintained throughout the procedure. On examination, no signs of skin breakdown or infection were noted at the injection site. The site was cleansed with alcohol. Palpation over the site produced patients typical pain. Using an 1.5 inch 25-gauge needle, the above muscles were injected in similar fashion after negative aspiration for blood with 1.5-2 mL of a combination of 7 mL of 0.5% ropivacaine containing 40 mg of Kenalog and 30 mg of ketorolac without complication. Needle was withdrawn and hemostasis noted. Band-Aid was applied where needed. Patient tolerated the procedure uneventfully without complications. Patient was discharged home with standard discharge instructions after 15-20 minutes. Present on Admission?: Yes (2) Intractable back pain: Present on Admission?: Yes (3) Anxiety: Present on Admission?: Yes History of Present Illness Reason for Consultation: Chronic axial lumbosacral back pain Requesting Physician: Mary Rojas MD Attending Physician: Mary Rojas MD History of Present Illness Mr. Love is a 74-year-old white male admitted due to intractable low back pain. The patient reports he was admitted due to his back pain and his anxiety. Patient has history of lumbar spinal fusion approximately [address] Merida with L2-L5 laminectomy and fusion has also undergone bilateral SI joint fusion procedures. Patient has reported minimal improvement in his chronic low back pain complaint since the time of the surgical interventions. He is also reported multiple interventional treatments directed at low back pain with minimal improvement in pain complaints. His pain is 100% axial right greater than left side at the lumbosacral junction. He reports rare pain radiating to the right lateral thigh. Patient reports the pain is aching and occasionally sharp/spasming in characteristic. He frequently utilizes a TENS unit and heat while at home with moderate benefit. Patient has been on chronic opiate therapy most recently MS Contin 15 mg every 12 hours and OxyIR 5 mg every 4 hours PRN breakthrough pain. He is followed by [facility]. Patient denies any bowel or bladder incontinence or saddle anesthesias. He denies lower extremity footdrop or falling. He reports some generalized weakness/instability with ambulatory function. He denies any lower extremity paresthesias. He denies pain radiating into the groin. Patient denies any recent falls or injuries. He has no further constitutional complaints. Plan of care discussed with Dr. Lovely Higginbotham. Pain Assessment Full Body Front + Back: 1. Right lumbosacral junction Pain scale - at its best (0-10): 4 Pain scale - at its worst (0-10): 8 Allergies Allergy/AdvReac Type Severity Reaction Status Date / Time magnesium sulfate Allergy Severe HIVES Verified 12/03/19 16:05 adhesive Allergy Intermediate BANDAIDS- Verified 12/03/19 16:05 SKIN BREAKS OUT codeine Allergy Intermediate RASH Verified 12/03/19 16:05 Iodinated Contrast Media Allergy Intermediate NOTED Verified 12/03/19 16:05 IVP DYE - RASH latex Allergy Intermediate SKIN Verified 12/03/19 16:05 IRRITATION tolterodine Allergy Intermediate RASH Verified 12/03/19 16:05 Sulfa (Sulfonamide Allergy Unknown UNKNOWN Verified 12/03/19 16:05 Antibiotics) REACTION amoxicillin Allergy Pruritus Verified 12/03/19 16:05 Home Medications Home Medications Medication Instructions Recorded Confirmed Type Pradaxa 150 mg PO BID 03/20/19 12/03/19 History Soothe XP 1 drp OPHTHALMIC (EYE) QAM 03/20/19 12/03/19 History acetaminophen 650 mg PO Q6H PRN 03/20/19 12/03/19 History albuterol sulfate 1 - 2 puff INHALATION Q6H PRN 03/20/19 12/03/19 History atenolol 25 mg PO QAM 03/20/19 12/03/19 History cholecalciferol (vitamin D3) 25 mcg PO QAM 03/20/19 12/03/19 History [Vitamin D3] lisinopril 10 mg PO QAM 03/20/19 12/03/19 History omega-3 fatty acids-fish oil [Fish 1 cap PO QAM 03/20/19 12/03/19 History Oil] polyethylene glycol 3350 [Miralax] 17 g PO QPM 03/20/19 12/03/19 History simvastatin 20 mg PO PM 03/20/19 12/03/19 History glucos sul [id number]-[id number]-C-Mn 1 cap PO BID 05/19/19 12/03/19 History [Glucosamine Chondroitin] oxycodone 5 mg PO Q4 PRN 05/19/19 12/03/19 History furosemide 40 mg PO DAILY 10/28/19 12/04/19 History tamsulosin 0.4 mg PO QAM 10/28/19 12/03/19 History morphine 15 mg PO Q12 12/03/19 12/03/19 History furosemide 12/04/19 History Pain History Pain Intensity Pain scale - at its best (0-10): 4 Pain scale - at its worst (0-10): 8 Patient History Medical History (Updated 12/05/19 @ 09:54 by Giovanny White PA-C) Atrial fibrillation Carotid artery stenosis <50% B/L ICA stenosis per 01/2018 carotid imaging Chronic constipation CKD (chronic kidney disease) creatinine baseline in the 1.6-1.9 range per chart review GERD (gastroesophageal reflux disease) controlled History of kidney stones Hypertension Lumbar post-laminectomy syndrome Nocturia Obesity Spinal stenosis Stroke multiple, most 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 (per cardiology note, hx 1997, 2000)- no residual effects Surgical History (Updated 12/05/19 @ 09:54 by Giovanny White PA-C) History of back surgery L2-L5 laminectomy and fusion, bilateral SI joint fusion Hx of cervical spine surgery Hx of cystoscopy FOR STONE REMOVAL Hx of lithotripsy Social History Smoking Status: Former smoker Tobacco Type: Cigarettes Second Hand Exposure: No; Hx Alcohol Use: No Hx Substance Use: No Preferred Language: Lao Communication Ability: Effective Slip Cover Seamstress Required: No Beliefs That Will Affect Care: None marital status: Single Current Living Situation: Alone Current Living Situation Comment: HAS RUMPER Feels Safe at Home: Yes Assistive Devices: Walker Physical Exam Physical Exam: General: Patient sitting quietly in exam room in no acute distress. Speech and thought process appropriate. Mood and affect appropriate. Cognition intact. Patient somewhat hard of hearing but communication was effective. Head: Normocephalic and atraumatic. ENT: No evidence of nasal or oral mucosal lesions. Mucous membranes are moist. Eyes: Pupils equal round reactive to light. Neck: Supple without adenopathy and full range of motion. Chest: Nontender to palpation of the costosternal junction. Abdomen: Soft and nondistended. No organomegaly. Bowel sounds active. Back/spine: Well-healed midline surgical incision over the entire lumbar spine. Patient has well-healed incisions over the SI joint region bilaterally. Nontender over the midline. No focal facet or SI joint region tenderness. Patient tender along the right quadratus lumborum superior to the iliac crest as well as the superior gluteal musculature. There is evidence of scattered spasm and a few myoneural trigger points at sites of maximal tenderness. Patient minimally tender correspondingly on the left. Limited range of motion all planes. Lower extremities: SLR increased right-sided axial low back pain bilaterally in the sitting position. Strength testing 5/5 throughout without focal deficit. Some increased axial low back pain on the right with resisted hip flexion and extension on the right. Sensation was intact without deficit. Trace ankle edema. Neurologic: Cranial nerves grossly intact. Ambulatory function slowed and guarded with minimal assistance. Patient was able to transfer from sitting to standing with minimal assistance. Results ([facility]) Diagnostic Review MRI: non enhanced MRI Findings: [facility], [place] [phone] Magnetic Resonance Report Patient: SRINIVASAN LOVE AAdmit Date: 12/03/19 MR#: [id number]: [address] Acct ID:[id number]: Date: 1945[facility] Zip: [place] [address] Age: 74Location: ED Sex: MRoom/Bed: Att Phy:Diagnosis: SEVERE PAIN ON LOWER RIGHT SIDE Reina Phy: TOD MCKENZIE MDService Date: 12/03/19 Fam Phy:Interpreting Phy: Jorge Casanova MD Admit Phy: Ordering Phy: Kimani Buckner DO cc: ~ LUMBAR SPINE MRI HISTORY: Low back pain. TECHNIQUE: Multiplanar multisequence MRI of the lumbar spine was performed without the use of contrast. COMPARISON: Lumbar spine MRI 05/25/2014. FINDINGS: For the purpose of the report the L5-S1 disc space will be located on axial image 34 of 37. Straightening of the lumbar spine. Posterior decompression fusion at L2-L3 with pedicle screws and rods. Moderate to severe disc space narrowing at L1-L2 which has progressed. Endplate signal abnormality at L1-L2 favors degenerative change. No significant loss of height to suggest a fracture. No subluxation. The L4-L5 vertebral bodies are fused. The conus terminates at the L1 level. Laminectomies from L2 through L5. Paravertebral soft tissues are within normal limits. Partially visualized T2 hyperintense lesions within the kidneys. These favor cysts. Bilateral sacroiliac screws are partially visualized. The left L2 pedicle screw tip appears to enter into the L1-L2 disc space. However, this is difficult to assess by MRI. Soft tissue edema at the laminectomy sites favors postoperative change. There is a disc spacer at L5-S1 and L2-L3. L1-L2: Broad-based posterior disc bulge with ligamentum and facet hypertrophy resulting in moderate central canal and severe bilateral neural foraminal narrowing. L2-L3: No significant central canal narrowing due to the posterior decompression. There is mild bilateral neural foraminal narrowing. L3-L4: No significant central canal narrowing due to the posterior decompression. There is mild bilateral neural foraminal narrowing. L4-L5: No significant central canal narrowing due to the posterior decompression. There is moderate bilateral neural foraminal narrowing. L5-S1: No significant central canal narrowing due to the posterior decompression. Moderate right and mild left neural foraminal narrowing. IMPRESSION: 1. Extensive postoperative changes as described above. 2. No fractures identified within the lumbar spine. 3. Endplate signal abnormality at L1-L2 favors long-standing degenerative change. 4. Moderate to severe disc space narrowing at L1-L2 which has progressed. There is an associated broad-based posterior disc bulge and ligamentum flavum and facet hypertrophy at this level resulting in moderate central canal narrowing. As also severe bilateral neural foraminal narrowing at this level. ACT 112: Negative or not required by law. Electronically signed by: Jorge Casanova M.D. 12/03/2019 5:10 PM Dictated: 12/03/19 170 Transcribed: 12/03/19 170
--- NOTE | 2019-12-05 15:42 | Hospitalist Progress Note ---
Date of Service December 05, 2019 Assessment & Plan (1) Chronic back pain: lumber spine stenosis with radicular pain Presented with intractable back pain with radiation down to left hip left leg MRI of lumbar spine shows moderate to severe L1 spinal stenosis-possibly causing radiculopathy Appreciate input from Dr. Merida Recommends continue steroids will change to Medrol dose pack pain control, PT OT out patient L1 nerve block electively Pain management consulted, appreciate input s/p trigger point injection today with improvement of symptoms Patient follows with pain clinic at [place], has been on both long and short acting morphine, Feels that regimen is not providing any benefit to him pt will benefot to wean off narcotic as per Pain clinic Continue PT OT To discharge home when medically stable Chronic A. fib: Continue atenolol on Pradaxa Anxiety disorder: Continue Zoloft, as needed Ativan DISPOSITION : Discharge home with back pain improves will benefit with home PT Admission and Anticipated Discharge Date Admission Date: December 03, 2019 Subjective had trigger point injection on right flank and hip area today pt reports improvement of symptom able to walked on the hallway with minimum pain Physical Exam Constitutional: WD/WN, vitals as above Eyes: PERRL, conjunctivae normal, anicteric sclerae ENMT: external ear and nose normal, oropharynx normal Neck: trachea midline, no thyromegaly Respiratory: normal respiratory effort, lungs clear to auscultation Cardiovascular: RRR, no murmur, no edema Gastrointestinal (Abdomen): Percussion/Palpation: abdomen soft; abdomen nonten babar Skin: no rashes, warm and dry Neurologic: PERRL, EOMI, accommodation nl, no face palsy, no dysarthria Psychiatric: A+Ox3, euthymic affect Results & Data Results & Data ([place]) Vital Signs (Past 12 Hours) Vital Signs Temp Pulse Resp BP Pulse Ox 12/05/19 15:00 36.4 C L 57 L 18 128/72 95 12/05/19 08:14 36.6 C 57 L 16 150/80 H 97 (1) Chronic back pain Back pain laterality: right Back pain location: low back pain Sciatica prese nce: unspecified whether sciatica present Qualified Code(s): M54.5 - Low back pain; G89.29 - Other chronic pain
[2019-12-05] MEDS ORDERED: methylPREDNISolone 4 MG TAB, 6 DAY TAPER PO SCH (16:00)
[2019-12-05] MEDS ORDERED: methylPREDNISolone 4 MG TAB PO SCH ×2 (18:00→21:00)
[2019-12-05] MEDS: POLYETHYLENE (MIRALAX) 17 GM PACK PO SCH (19:56)
[2019-12-05] MEDS: DULOXETINE HCL 20 MG CAP PO SCH (21:17)
[2019-12-05] MEDS: SIMVASTATIN 20 MG TAB PO SCH (21:17)
[2019-12-06] MEDS: methylPREDNISolone 4 MG TAB PO SCH ×3 (07:14→18:23)
--- NOTE | 2019-12-06 08:34 | Pain Management Progress Note ---
Date of Service December 06, 2019 Assessment & Plan (1) Lumbar post-laminectomy syndrome: * Currently pleased with relief from trigger point injections. Expectations were reviewed and he verbalized understanding. He would be a candidate for repeat trigger point injections in 60-90 days with recurrence or persistence of pain complaints. * Dr. Merida potentially planning for outpatient L1-2 selective nerve root block for diagnostic purposes * Recommend progressing Cymbalta dosing moving forward to address anxiety and chronic low back pain with likely diminished dosing of sertraline--consider involvement with behavioral health * Opiate therapy appears to be providing minimal benefit-patient was encouraged to discuss diminished reliance upon discharge with his pain service Thank you for allowing pain service to be involved in patient's care. (2) Intractable back pain: (3) Anxiety: Admission and Anticipated Discharge Date Admission Date: December 05, 2019 Subjective Mr. Christie underwent trigger point injections yesterday in the right quadratus lumborum and supra gluteal region. He reported significant reduction in pain with the trigger point injections. He reportedly was ambulating in the hallway last evening and has been out of bed this morning with minimal discomfort. He is rating his pain at a 2-4/10. Reporting improved ability to positional change from sitting to standing. He anticipates participating in PT today to assess response in anticipation of discharge. He is currently generally pleased with the results although does have some residual discomfort in the right lumbosacral region which he reports is mild and aching in characteristic. He continues to deny radicular component to pain. He has no further concert complaints. Pain Assessment Pain Assessment Full Body Front + Back: 1. Right lumbosacral junction Pain scale - at its best (0-10): 2 Pain scale - at its worst (0-10): 4 Physical Exam Physical Exam: General: Patient sitting quietly in exam room in no acute distress. Speech and thought process appropriate. Mood and affect appropriate. Cognition intact. Patient somewhat hard of hearing but communication was effective. Back/spine: Well-healed midline surgical incision over the entire lumbar spine. Patient has well-healed incisions over the SI joint region bilaterally. Nontender over the midline. No focal facet or SI joint region tenderness. No evidence of edema, erythema or skin breakdown at site of trigger point injections. Minimal residual tenderness along the right quadratus lumborum superior to the iliac crest. There is evidence of a 0.5 cm myoneural trigger point at site of residual tenderness. Patient minimally tender correspondingly on the left. Limited range of motion all planes. Lower extremities: SLR negative bilaterally in the sitting position. Strength testing 5/5 throughout without focal deficit. Sensation was intact without deficit. Trace ankle edema. Neurologic: Cranial nerves grossly intact. Ambulatory function slowed and guarded with use of a four-point walker. Patient was able to transfer from sitting to standing with minimal assistance.
[2019-12-06] MEDS: DABIGATRAN ETEXILATE 75 MG CAP PO SCH ×2 (08:48→20:44)
[2019-12-06] MEDS: FUROSEMIDE 40 MG TAB PO SCH (08:48)
[2019-12-06] MEDS: ATENOLOL 25 MG TABLET PO SCH (08:49)
[2019-12-06] MEDS: TAMSULOSIN HCL 0.4 MG CAP PO SCH (08:49)
[2019-12-06] MEDS: OMEGA-3 (PURIFIED FISH OIL) 1 GM CAP PO SCH (08:49)
[2019-12-06] MEDS: SERTRALINE HCL 100 MG TABLET PO SCH (08:49)
[2019-12-06] MEDS: CHOLECALCIFEROL 1,000 UNITS 25 MCG TAB PO SCH (08:49)
[2019-12-06] MEDS: lisinopriL 10 MG TAB PO SCH (08:49)
[2019-12-06] MEDS: MoRPHine SULFATE CR 15 MG TABCR PO SCH ×2 (08:57→20:48)
--- NOTE | 2019-12-06 10:35 | Orthopedic Progress Note ---
Date of Service December 06, 2019 Assessment & Plan (1) Chronic back pain: Admission and Anticipated Discharge Date Admission Date: December 05, 2019 Patient is done very nicely after his trigger point injections. He is been ambulating the halls. He is feeling much improved. We both agree we will refrain from any nerve root blocks at this time. He would continue with therapy and trigger point injections as needed. Subjective Patient states his back symptoms are markedly improved after injections. Physical Exam Physical Exam: On exam he appears comfortable. Skin strength testing. Results & Data ([facility]) Vital Signs (Past 12 Hours) Vital Signs Temp Pulse Resp BP Pulse Ox 12/06/19 07:48 36.6 C 54 L 16 149/78 H 96 12/05/19 23:18 36.5 C 54 L 20 123/72 96 (1) Chronic back pain Back pain laterality: right Back pain location: low back pain Sciatica presence: unspecified whether sciatica present Qualified Code(s): M54.5 - Low back pain; G89.29 - Other chronic pain
[2019-12-06] MEDS: LORazepam 0.5 MG TAB PO PRN (16:28)
--- NOTE | 2019-12-06 18:40 | Hospitalist Progress Note ---
Date of Service December 06, 2019 Assessment & Plan (1) Chronic back pain: Lumbar spine stenosis with radicular pain Presented with intractable back pain with radiation down to left hip left leg MRI of lumbar spine shows moderate to severe L1 spinal stenosis-possibly causing radiculopathy s/p trigger point injection by pain management Ortho on board, refrain from any nerve root blocks at this time. Continue Medrol dose pack steroid He would be a candidate for repeat trigger point injections in 60-90 days with recurrence or persistence of pain complaints as per pain management Continue Cymbalta 20mg HS Opiate therapy appears to be providing minimal benefit-patient was encouraged to discuss diminished reliance upon discharge with his pain service Patient follows with pain clinic at [place], has been on both long and short acting morphine Will need to wean off narcotic as per Pain clinic Continue PT OT pain improves Chronic A. fib: rate control with atenolol Continue Pradaxa Anxiety disorder Continue Zoloft 100mg daily Continue Cymbalta DISPOSITION Discharge home with back pain improves will benefit with home PT Admission and Anticipated Discharge Date Admission Date: December 05, 2019 Subjective Pt was seen and examined Lying in bed with no distress Pt said that she feels ok She said that her pain control Denies any chest pain, palpitation, dizziness and SOB Physical Exam Physical Exam: General- No acute distress Head- atraumatic Eyes- PERRL, EOMI, ENT- oropharynx clear Neck- supple, no JVD Lungs- clear to auscultation Heart- regular rhythm; no murmur Abdomen- normal bowel sounds, soft, nontender Extremities- no calf tenderness Neuro- alert, oriented x 3; PERRL, EOMI; no facial palsy; no dysarthria Skin- warm & dry Results & Data Results & Data ([facility]) Vital Signs (Past 12 Hours) Vital Signs Temp Pulse Resp BP Pulse Ox 12/06/19 16:48 36.6 C 53 L 18 108/64 94 12/06/19 07:48 36.6 C 54 L 16 149/78 H 96 (1) Chronic back pain Back pain laterality: right Back pain location: low back pain Sciatica presence: unspecified whether sciatica present Qualified Code(s): M54.5 - Low back pain; G89.29 - Other chronic pain
[2019-12-06] MEDS: DULOXETINE HCL 20 MG CAP PO SCH (20:43)
[2019-12-06] MEDS: POLYETHYLENE (MIRALAX) 17 GM PACK PO SCH (20:43)
[2019-12-06] MEDS: SIMVASTATIN 20 MG TAB PO SCH (20:43)
[2019-12-06] MEDS ORDERED: methylPREDNISolone 4 MG TAB PO SCH (21:00)
[2019-12-07] MEDS: methylPREDNISolone 4 MG TAB PO SCH ×4 (06:23→21:53)
[2019-12-07] MEDS: LORazepam 0.5 MG TAB PO PRN ×3 (06:23→21:59)
[2019-12-07] MEDS: SERTRALINE HCL 100 MG TABLET PO SCH (08:46)
[2019-12-07] MEDS: CHOLECALCIFEROL 1,000 UNITS 25 MCG TAB PO SCH (08:46)
[2019-12-07] MEDS: lisinopriL 10 MG TAB PO SCH (08:46)
[2019-12-07] MEDS: DABIGATRAN ETEXILATE 75 MG CAP PO SCH ×2 (08:46→21:52)
[2019-12-07] MEDS: ATENOLOL 25 MG TABLET PO SCH (08:46)
[2019-12-07] MEDS: FUROSEMIDE 40 MG TAB PO SCH (08:47)
[2019-12-07] MEDS: OMEGA-3 (PURIFIED FISH OIL) 1 GM CAP PO SCH (08:47)
[2019-12-07] MEDS: TAMSULOSIN HCL 0.4 MG CAP PO SCH (08:47)
[2019-12-07] MEDS: MoRPHine SULFATE CR 15 MG TABCR PO SCH ×2 (09:03→21:59)
--- NOTE | 2019-12-07 18:42 | Hospitalist Progress Note ---
Date of Service December 07, 2019 Assessment & Plan (1) Chronic back pain: Lumbar spine stenosis with radicular pain Presented with intractable back pain with radiation down to left hip left leg MRI of lumbar spine shows moderate to severe L1 spinal stenosis-possibly causing radiculopathy s/p trigger point injection by pain management Ortho on board, refrain from any nerve root blocks at this time. Continue Medrol dose pack steroid He would be a candidate for repeat trigger point injections in 60-90 days with recurrence or persistence of pain complaints as per pain management Continue Cymbalta 20mg HS Opiate therapy appears to be providing minimal benefit-patient was encouraged to discuss diminished reliance upon discharge with his pain service Patient follows with pain clinic at [place], has been on both long and short acting morphine Will need to wean off narcotic as per Pain clinic Continue PT OT pain improves Chronic A. fib: rate control with atenolol Continue Pradaxa Anxiety disorder Continue Zoloft 100mg daily Continue Cymbalta Pt would like to see psych Will add a low dose of Hydroxyzine PRN Will try to avoid any Benzo CKD 3 Creatinine at baseline Stable DISPOSITION Plan to discharge tomorrow will benefit with home PT Admission and Anticipated Discharge Date Admission Date: December 05, 2019 Subjective Pt was seen and examined Sitting in chair with no distress Pt said his pain improves He said that his pain grade is like a 3 Pt said that he continues to have anxiety but less Spoke to daughter Maureen today and provided update Denies any chest pain, palpitation, dizziness and SOB Physical Exam Physical Exam: General- No acute distress Head- atraumatic Eyes- PERRL, EOMI, ENT- oropharynx clear Neck- supple, no JVD Lungs- clear to auscultation Heart- regular rhythm; no murmur Abdomen- normal bowel sounds, soft, nontender Extremities- no calf tenderness Neuro- alert, oriented x 3; PERRL, EOMI; no facial palsy; no dysarthria Skin- warm & dry Results & Data Results & Data ([facility]) Vital Signs (Past 12 Hours) Vital Signs Temp Pulse Resp BP Pulse Ox 12/07/19 15:29 36.6 C 61 18 116/72 95 12/07/19 07:43 36.4 C L 52 L 16 138/79 97 (1) Chronic back pain Back pain laterality: right Back pain location: low back pain Sciatica presence: unspecified whether sciatica present Qualified Code(s): M54.5 - Low back pain; G89.29 - Other chronic pain
[2019-12-07] MEDS: DULOXETINE HCL 20 MG CAP PO SCH (21:52)
[2019-12-07] MEDS: POLYETHYLENE (MIRALAX) 17 GM PACK PO SCH (21:52)
[2019-12-07] MEDS: SIMVASTATIN 20 MG TAB PO SCH (21:52)
[2019-12-08] MEDS: methylPREDNISolone 4 MG TAB PO SCH ×3 (06:33→20:35)
[2019-12-08] MEDS ORDERED: hydrOXYzine HCl 10 MG TAB PO PRN (07:51)
[2019-12-08] MEDS: TAMSULOSIN HCL 0.4 MG CAP PO SCH (08:39)
[2019-12-08] MEDS: lisinopriL 10 MG TAB PO SCH (08:40)
[2019-12-08] MEDS: OMEGA-3 (PURIFIED FISH OIL) 1 GM CAP PO SCH (08:40)
[2019-12-08] MEDS: DABIGATRAN ETEXILATE 75 MG CAP PO SCH ×2 (08:40→20:34)
[2019-12-08] MEDS: SERTRALINE HCL 100 MG TABLET PO SCH (08:41)
[2019-12-08] MEDS: CHOLECALCIFEROL 1,000 UNITS 25 MCG TAB PO SCH (08:41)
[2019-12-08] MEDS: FUROSEMIDE 40 MG TAB PO SCH (08:41)
[2019-12-08] MEDS: ATENOLOL 25 MG TABLET PO SCH (08:41)
[2019-12-08] MEDS: MoRPHine SULFATE CR 15 MG TABCR PO SCH ×2 (08:42→20:37)
--- NOTE | 2019-12-08 11:02 | Psychiatric Consultation ---
Date of Consultation December 08, 2019 Impression / Recommendations Impression Dr. Macho Tucker was directly involved in review and discussion of the patient's case and participated in medical decision making regarding treatment recommendations. RECOMMENDATIONS: 12/07 - Psychiatric consultation requested by hospitalist service to evaluate patient for anxiety. Pain management with recent recommendations to continue cross-taper from sertraline to duloxetine in order to target pain in addition to mood and anxiety. Case was reviewed with hospitalist directly via phone to discuss recommendations. - Agree with plan to cross-taper from sertraline to duloxetine. Would advise next step be lowering sertraline to 50mg while titrating duloxetine to 40mg daily. Duloxetine will likely need to be titrated to dosing of at least 60mg, if not higher, in or to expect the medication to target chronic pain concerns. As it is reported that patient may be discharged home today without our ability to monitor medication adjustments, would advise patient be discharged on his current tolerated doses of antidepressant medications with plan for continued adjustments on an outpatient basis. - Encouraged supervision with prn dosing of hydroxyzine as ordered by hospitalist service. Reviewed potential side effects, which include sedation, confusion, and risk of falls. Pt and support verbalized understanding of these potential side effects. - Will request patient sign ROIs for his PCP, pain management (where he sees a psychiatric prescriber and therapist), and his daughter in order to fax this consult and adequately coordinate care. - Pt denies SI at this time, but does report thoughts to escape/"just give up" when his anxiety/pain are increased. Pt denies acute concerns and admits that he feels comfortable reaching to supports if suicidal thoughts should develop or he should have acute safety concerns. No criteria to suggest involuntarily inpatient psychiatric treatment is indicated. - Appreciate the opportunity to participate in the care of this patient - please reach out to our service with any additional questions or updates. Risk Factors Assessment Do You Have Access To A Gun?: No Psych History Identifying Data 74-year-old male admitted medically on 12/03/2019 after presenting to the ED with low back pain. On admission, duloxetine 20mg was started by hospitalist service to target anxiety in addition to low back pain. Psychiatric consultation was requested by hospitalist service to evaluate patient for anxiety. Chief Complaint "I was taken off the anxiety medication, and things just got a lot worse. I think the past few months." History of Present Illness Isreal Christie is a 74-year-old male admitted medically on 12/03/2019 after presenting to the ED with low back pain. On admission, duloxetine 20mg was started by hospitalist service to target anxiety in addition to low back pain. Psychiatric consultation was requested by hospitalist service to evaluate patient for anxiety. Pt was cooperative with psychiatric assessment. A family friend, Rose, was visiting the patient. Pt verbalized that he felt comfortable with the friend staying during our conversation. Friend was also able to contribute with some information and assist with providing explanation to patient, which patient permitted. Friend stated, "we've just noticed his anxiety has been heightened, and he's saying he's more panicked without any rhyme or reason." The patient admits "I was taken off the anxiety medication, and things just got a lot worse. I think the past few months." Pt shares that he had been taking clonazepam, but was taken off the medication in order to reduce interaction with pain medications he was to be taking. Pt states that his anxiety has been highly related to his chronic pain, which he has been struggling with for the past 8 years. The patient admits that the clonazepam was helpful, but he understands the reason for its discontinuation. Pt reports that his PCP initiated the sertraline, and he was reminded of recent initiation of duloxetine to target anxiety/depression as well as chronic pain. We reviewed recommendations for continued cross-titration - ultimately stopping the sertraline and increasing the duloxetine to effective dosing. Pt and friend were agreeable with these changes. We discussed that these changes may be initiated on an outpatient ba sis, as it was reported that patient may be discharged home today. We also reviewed that the hospitalist team has ordered hydroxyzine for acute anxiety, as opposed to continuing lorazepam. Pt was educated on this medication, with us specifically discussing potential side effects of sedation, falls, and confusion. Pt was advised to use the medication sparingly for the above reasons. Pt did admit to feeling "like I just want to give up sometimes", but states this is generally only in the context of severe pain or anxiety. He states, "that's kind of how I was feeling when I called my daughter to bring me in." Pt denies true SI and specifically denies plan or intent to harm himself. He is able to verbalize numerous supports he feels he could call if safety concerns should develop. Pt denies any acute safety concerns. Past Psychiatric History Current Psychiatric Diagnosis: Anxiety Outpatient Services: PCP Pt states he will be seeing a psychiatric prescriber and therapist through his pain clinic in [place] Previous Psych Admissions: None Do You Have Access To A Gun?: No History of Previous Suicide Attempt: No Past Medication Trials: 1. BuSpar 2. Celexa 3. Klonopin 4. Ativan 5. Zoloft 6. Cymbalta Allergies Allergy/AdvReac Type Severity Reaction Status Date / Time magnesium sulfate Allergy Severe HIVES Verified 12/03/19 16:05 adhesive Allergy Intermediate BANDAIDS- Verified 12/03/19 16:05 SKIN BREAKS OUT codeine Allergy Intermediate RASH Verified 12/03/19 16:05 Iodinated Contrast Media Allergy Intermediate NOTED Verified 12/03/19 16:05 IVP DYE - RASH latex Allergy Intermediate SKIN Verified 12/03/19 16:05 IRRITATION tolterodine Allergy Intermediate RASH Verified 12/03/19 16:05 Sulfa (Sulfonamide Allergy Unknown UNKNOWN Verified 12/03/19 16:05 Antibiotics) REACTION amoxicillin Allergy Pruritus Verified 12/03/19 16:05 Home Medications Home Medications Medication Instructions Recorded Confirmed Type Pradaxa 150 mg PO BID 03/20/19 12/03/19 History Soothe XP 1 drp OPHTHALMIC (EYE) QAM 03/20/19 12/03/19 History acetaminophen 650 mg PO Q6H PRN 03/20/19 12/03/19 History albuterol sulfate 1 - 2 puff INHALATION Q6H PRN 03/20/19 12/03/19 History atenolol 25 mg PO QAM 03/20/19 12/03/19 History cholecalciferol (vitamin D3) 25 mcg PO QAM 03/20/19 12/03/19 History [Vitamin D3] lisinopril 10 mg PO QAM 03/20/19 12/03/19 History omega-3 fatty acids-fish oil [Fish 1 cap PO QAM 03/20/19 12/03/19 History Oil] polyethylene glycol 3350 [Miralax] 17 g PO QPM 03/20/19 12/03/19 History simvastatin 20 mg PO PM 03/20/19 12/03/19 History glucos sul [id number] 1 cap PO BID 05/19/19 12/03/19 History [Glucosamine Chondroitin] oxycodone 5 mg PO Q4 PRN 05/19/19 12/03/19 History furosemide 40 mg PO DAILY 10/28/19 12/04/19 History tamsulosin 0.4 mg PO QAM 10/28/19 12/03/19 History morphine 15 mg PO Q12 12/03/19 12/03/19 History furosemide 12/04/19 History duloxetine 20 mg PO HS 30 Days #30 cap 12/05/19 Rx methylprednisolone 1 dose PO UD #1 packet 12/05/19 Rx sertraline 100 mg PO QAM 30 Days #30 tab 12/05/19 Rx Family History Denies known family history of mental health conditions. Substance Abuse History Pt is a former smoker. Denies significant alcohol or tobacco use. Denies use of illicit substances. Personal History Living Arrangements: Home (in [place]) Highest Grade Completed: High School Graduate Employment Status: Retired Marital Status: Number Of Children: 3 Beliefs That Will Affect Care: Buddhism History of Legal Problems: Denied Psychological Trauma History Comment: Denied Patient History Medical History Atrial fibrillation Carotid artery stenosis <50% B/L ICA stenosis per 01/2018 carotid imaging Chronic constipation CKD (chronic kidney disease) creatinine baseline in the 1.6-1.9 range per chart review GERD (gastroesophageal reflux disease) controlled History of kidney stones Hypertension Lumbar post-laminectomy syndrome Nocturia Obesity Spinal stenosis Stroke multiple, most 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 (per cardiology note, hx 1997, 2000)- no residual effects Surgical History History of back surgery L2-L5 laminectomy and fusion, bilateral SI joint fusion Hx of cervical spine surgery Hx of cystoscopy FOR STONE REMOVAL Hx of lithotripsy Social History Smoking Status: Former smoker Tobacco Type: Cigarettes Second Hand Exposure: No; Hx Alcohol Use: No Hx Substance Use: No Preferred Language: Ukrainian Communication Ability: Effective 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 marital status: Single Current Living Situation: Alone Current Living Situation Comment: 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 Feels Safe at Home: Yes Safety Concerns: Feels Safe At This Time Assistive Devices: Walker Physical Exam Psychiatric: Orientation: alert, oriented x 3 and cooperative Apperance: appropriately dressed, appropriately groomed and appeared stated age Eye Contact: good eye contact Motor Behavior: no abnormal motor movements (observed while laying in bed) Speech: normal rate/rhythm/volume of speech Affect: + blunted affect and mood congruent with affect Mood: + anxious mood (reports it is improved presently) Thought Process: goal directed thought process, clear/coherent thought process and thought association intact Thought Content: reality based without delusions; no hopelessness and no worthlessness Suicidal Thoughts: denies suicidal thoughts, denies suicidal plan and denies suicidal intent but does report times of wanting to "just give up" when anxiety/pain are exacerbated Homicidal Thoughts: denies homicidal thoughts Hallucinations: no auditory hallucinations and no visual hallucinations Cognition: attention grossly intact and language grossly intact Estimated Intelligence: consistent with education level Insight: + fair insight Judgement: + fair judgement Vital Signs (Past 24 Hours): Last Vital Signs Temp 36.5 C 12/08/19 07:46 Pulse 55 L 12/08/19 07:46 Resp 16 12/08/19 07:46 BP 134/82 12/08/19 07:46 Pulse Ox 96 12/08/19 07:46 Review of Systems Constitutional: denied Cardiovascular: denied Respiratory: denied Gastrointestinal: reports mild nausea Neurological: denied Musculoskeletal: reports chronic low back pain Psychiatric: denies symptoms other than stated above Total of at least 10 systems reviewed, pertinent positives as above and in HPI. Results & Data (PS[facility]) Medications Administered Atenolol (Atenolol 25 Mg Tablet) 25 mg PO [facility] Stop: 01/02/20 20:59 Last Admin: 12/08/19 08:41 Dose: 25 mg Documented by: [id number] Admin: 12/07/19 08:46 Dose: 25 mg Documented by: [id number] Admin: 12/06/19 08:49 Dose: 25 mg Documented by: [id number] Admin: 12/05/19 08:36 Dose: 25 mg Documented by: [id number] Admin: 12/04/19 08:46 Dose: 25 mg Documented by: [id number] Admin: 12/03/19 21:37 Dose: Not Given Documented by: [id number] Dabigatran (Dabigatran Etexilate 75 Mg Cap) 150 mg PO BID [facility] Stop: 01/03/20 20:59 Last Admin: 12/08/19 08:40 Dose: 150 mg Documented by: [id number] Admin: 12/07/19 21:52 Dose: 150 mg Documented by: [id number] Admin: 12/07/19 08:46 Dose: 150 mg Documented by: [id number] Admin: 12/06/19 20:44 Dose: 150 mg Documented by: [id number] Admin: 12/06/19 08:48 Dose: 150 mg Documented by: [id number] Admin: 12/05/19 21:16 Dose: 150 mg Documented by: [id number] Admin: 12/05/19 08:35 Dose: 150 mg Documented by: [id number] Admin: 12/04/19 21:07 Dose: 150 mg Documented by: [id number] Duloxetine HCl (Duloxetine Hcl 20 Mg Cap) 20 mg PO HS [facility] Stop: 01/02/20 20:59 Last Admin: 12/07/19 21:52 Dose: 20 mg Documented by: [id number] Admin: 12/06/19 20:43 Dose: 20 mg Documented by: [id number] Admin: 12/05/19 21:17 Dose: 20 mg Documented by: [id number] Admin: 12/04/19 21:07 Dose: 20 mg Documented by: [id number] Admin: 12/03/19 21:37 Dose: 20 mg Documented by: [id number] Fish Oil ([place]-3 (Purified Fish Oil) 1 Gm Cap) 1 gm PO QAM [facility] Stop: 01/03/20 08:59 Last Admin: 12/08/19 08:40 Dose: 1 gm Documented by: [id number] Admin: 12/07/19 08:47 Dose: 1 gm Documented by: [id number] Admin: 12/06/19 08:49 Dose: 1 gm Documented by: [id number] Admin: 12/05/19 08:36 Dose: 1 gm Documented by: [id number] Admin: 12/04/19 08:45 Dose: 1 gm Documented by: [id number] Furosemide (Furosemide 40 Mg Tab) 40 mg PO DAILY [facility] Stop: 01/05/20 08:59 Last Admin: 12/08/19 08:41 Dose: 40 mg Documented by: [id number] Admin: 12/07/19 08:47 Dose: 40 mg Documented by: [id number] Admin: 12/06/19 08:48 Dose: 40 mg Documented by: [id number] Lisinopril (Lisinopril 10 Mg Tab) 10 mg PO QAM [facility] Stop: 01/03/20 08:59 Last Admin: 12/08/19 08:40 Dose: 10 mg Documented by: [id number] Admin: 12/07/19 08:46 Dose: 10 mg Documented by: [id number] Admin: 12/06/19 08:49 Dose: 10 mg Documented by: [id number] Admin: 12/05/19 08:36 Dose: 10 mg Documented by: [id number] Admin: 12/04/19 08:45 Dose: 10 mg Documented by: [id number] Lorazepam (Lorazepam 0.5 Mg Tab) 0.5 mg PO Q8 PRN PRN Reason: Anxiety Stop: 01/03/20 15:19 Last Admin: 12/07/19 21:59 Dose: 0.5 mg Documented by: [id number] Admin: 12/07/19 14:01 Dose: 0.5 mg Documented by: [id number] Admin: 12/07/19 06:23 Dose: 0.5 mg Documented by: [id number] Admin: 12/06/19 16:28 Dose: 0.5 mg Documented by: [id number] Methylprednisolone (Methylprednisolone 4 Mg Tab) 4 mg PO 0700,1300,2100 [facility] Stop: 12/08/19 21:01 Last Admin: 12/08/19 06:33 Dose: 4 mg Documented by: [id number] Morphine Sulfate (Morphine Sulfate Cr 15 Mg Tabcr) 15 mg PO Q12 [facility] Stop: 12/17/19 20:59 Last Admin: 12/08/19 08:42 Dose: 15 mg Documented by: [id number] Admin: 12/07/19 21:59 Dose: 15 mg Documented by: [id number] Admin: 12/07/19 09:03 Dose: 15 mg Documented by: [id number] Admin: 12/06/19 20:48 Dose: 15 mg Documented by: [id number] Admin: 12/06/19 08:57 Dose: 15 mg Documented by: [id number] Admin: 12/05/19 21:16 Dose: 15 mg Documented by: [id number] Admin: 12/05/19 08:35 Dose: 15 mg Documented by: [id number] Admin: 12/04/19 21:07 Dose: 15 mg Documented by: [id number] Admin: 12/04/19 08:43 Dose: 15 mg Documented by: [id number] Admin: 12/03/19 21:37 Dose: 15 mg Documented by: [id number] Oxycodone HCl (Oxycodone Hcl Ir 5 Mg Tab (Immediate Release)) 5 mg PO Q4 PRN PRN Reason: pain, severe Stop: 12/17/19 20:46 Last Admin: 12/04/19 06:38 Dose: 5 mg Documented by: [id number] Polyethylene Glycol (Polyethylene (Miralax) 17 Gm Pack) 17 gm PO QPM [facility] Stop: 01/02/20 20:59 Last Admin: 12/07/19 21:52 Dose: 17 gm Documented by: [id number] Admin: 12/06/19 20:43 Dose: 17 gm Documented by: [id number] Admin: 12/05/19 19:56 Dose: 17 gm Documented by: [id number] Admin: 12/04/19 21:07 Dose: 17 gm Documented by: [id number] Admin: 12/03/19 21:37 Dose: 17 gm Documented by: [id number] Sertraline HCl (Sertraline Hcl 100 Mg Tablet) [facility] Stop: 01/04/20 08:59 Last Admin: 12/08/19 08:41 Dose: 100 mg Documented by: [id number] Admin: 12/07/19 08:46 Dose: 100 mg Documented by: [id number] Admin: 12/06/19 08:49 Dose: 100 mg Documented by: [id number] Admin: 12/05/19 08:35 Dose: 100 mg Documented by: [id number] Simvastatin (Simvastatin 20 Mg Tab) 20 mg PO PM [facility] Stop: 01/02/20 20:59 Last Admin: 12/07/19 21:52 Dose: 20 mg Documented by: [id number] Admin: 12/06/19 20:43 Dose: 20 mg Documented by: [id number] Admin: 12/05/19 21:17 Dose: 20 mg Documented by: [id number] Admin: 12/04/19 21:07 Dose: 20 mg Documented by: [id number] Admin: 12/03/19 21:37 Dose: 20 mg Documented by: [id number] Tamsulosin HCl (Tamsulosin Hcl 0.4 Mg Cap) 0.4 mg PO QAM [facility] Stop: 01/03/20 08:59 Last Admin: 12/08/19 08:39 Dose: 0.4 mg Documented by: [id number] Admin: 12/07/19 08:47 Dose: 0.4 mg Documented by: [id number] Admin: 12/06/19 08:49 Dose: 0.4 mg Documented by: [id number] Admin: 12/05/19 08:36 Dose: 0.4 mg Documented by: [id number] Admin: 12/04/19 08:44 Dose: 0.4 mg Documented by: [id number] Vitamin D (Cholecalciferol 1,000 Units 25 Mcg Tab) 1,000 units PO [facility] Stop: 01/03/20 08:59 Last Admin: 12/08/19 08:41 Dose: 1,000 units Documented by: [id number] Admin: 12/07/19 08:46 Dose: 1,000 units Documented by: [id number] Admin: 12/06/19 08:49 Dose: 1,000 units Documented by: [id number] Admin: 12/05/19 08:36 Dose: 1,000 units Documented by: [id number] Admin: 12/04/19 08:45 Dose: 1,000 units Documented by: [id number] Coding Level of Care Code 80116 U Intl Hosp Care Lvl 3
--- NOTE | 2019-12-08 16:23 | Hospitalist Progress Note ---
Date of Service December 08, 2019 Assessment & Plan (1) Chronic back pain: Lumbar spine stenosis with radicular pain Presented with intractable back pain with radiation down to left hip left leg MRI of lumbar spine shows moderate to severe L1 spinal stenosis-possibly causing radiculopathy s/p trigger point injection by pain management Ortho on board, refrain from any nerve root blocks at this time. Continue Medrol dose pack steroid He would be a candidate for repeat trigger point injections in 60-90 days with recurrence or persistence of pain complaints as per pain management Continue Cymbalta 20mg HS Opiate therapy appears to be providing minimal benefit-patient was encouraged to discuss diminished reliance upon discharge with his pain service Patient follows with pain clinic at [place], has been on both long and short acting morphine Will need to wean off narcotic as per Pain clinic Continue PT OT pain improves Chronic A. fib: rate control with atenolol Continue Pradaxa Anxiety disorder Continue Zoloft 100mg daily Continue Cymbalta 20mg Psych on board Case discussed with Psych team that advise next step be lowering sertraline to 50mg while titrating duloxetine to 40mg daily. Duloxetine will likely need to be titrated to dosing of at least 60mg, if not higher, in or to expect the medication to target chronic pain concerns. Spoke to daughter and patient that would rather to titrate the Zoloft and Cymbalta during his next appointment Wednesday with psych since the Zoloft just increased and seems to help somehow with the anxiety Will try to avoid any Benzo CKD 3 Creatinine at baseline Stable DISPOSITION Plan to discharge tomorrow will benefit with home PT Admission and Anticipated Discharge Date Admission Date: December 05, 2019 Subjective Pt was seen and examined Sitting in bed with no distress Pt said that he feels his head a little heavy today he said that his pain is stable Denies any chest pain, palpitation, dizziness and SOB Physical Exam Physical Exam: General- No acute distress Head- atraumatic Eyes- PERRL, EOMI, ENT- oropharynx clear Neck- supple, no JVD Lungs- clear to auscultation Heart- regular rhythm; no murmur Abdomen- normal bowel sounds, soft, nontender Extremities- no calf tenderness Neuro- alert, oriented x 3; PERRL, EOMI; no facial palsy; no dysarthria Skin- warm & dry Results & Data Results & Data ([facility]) Vital Signs (Past 12 Hours) Vital Signs Temp Pulse Resp BP Pulse Ox 12/08/19 15:08 36.8 C 61 18 109/76 96 12/08/19 07:46 36.5 C 55 L 16 134/82 96 (1) Chronic back pain Back pain laterality: right Back pain location: low back pain Sciatica presence: unspecified whether sciatica present Qualified Code(s): M54.5 - Low back pain; G89.29 - Other chronic pain
[2019-12-08] MEDS: LORazepam 0.5 MG TAB PO PRN (18:29)
[2019-12-08] MEDS: DULOXETINE HCL 20 MG CAP PO SCH (20:34)
[2019-12-08] MEDS: SIMVASTATIN 20 MG TAB PO SCH (20:34)
[2019-12-08] MEDS: POLYETHYLENE (MIRALAX) 17 GM PACK PO SCH (20:34)
[2019-12-09] MEDS: LORazepam 0.5 MG TAB PO PRN (06:43)
[2019-12-09] MEDS ORDERED: methylPREDNISolone 4 MG TAB PO SCH (07:00)
[2019-12-09] MEDS: FUROSEMIDE 40 MG TAB PO SCH (07:30)
[2019-12-09] MEDS: OMEGA-3 (PURIFIED FISH OIL) 1 GM CAP PO SCH (07:31)
[2019-12-09] MEDS: TAMSULOSIN HCL 0.4 MG CAP PO SCH (07:31)
[2019-12-09] MEDS: MoRPHine SULFATE CR 15 MG TABCR PO SCH (07:31)
[2019-12-09] MEDS: DABIGATRAN ETEXILATE 75 MG CAP PO SCH (07:32)
[2019-12-09] MEDS: ATENOLOL 25 MG TABLET PO SCH (07:33)
[2019-12-09] MEDS: CHOLECALCIFEROL 1,000 UNITS 25 MCG TAB PO SCH (07:33)
[2019-12-09] MEDS: lisinopriL 10 MG TAB PO SCH (07:33)
[2019-12-09] MEDS: SERTRALINE HCL 100 MG TABLET PO SCH (07:34)
--- NOTE | 2019-12-09 14:05 | Hospitalist Progress Note ---
Date of Service December 09, 2019 Assessment & Plan (1) Chronic back pain: Lumbar spine stenosis with radicular pain Presented with intractable back pain with radiation down to left hip left leg MRI of lumbar spine shows moderate to severe L1 spinal stenosis-possibly causing radiculopathy s/p trigger point injection by pain management Ortho on board, refrain from any nerve root blocks at this time. Continue Medrol dose pack steroid He would be a candidate for repeat trigger point injections in 60-90 days with recurrence or persistence of pain complaints as per pain management Continue Cymbalta 20mg HS Opiate therapy appears to be providing minimal benefit-patient was encouraged to discuss diminished reliance upon discharge with his pain service Patient follows with pain clinic at [place], has been on both long and short acting morphine Will need to wean off narcotic as per Pain clinic Continue PT/ OT with home health pain improves Chronic A. fib: rate control with atenolol Continue Pradaxa Anxiety disorder Continue Zoloft 100mg daily Continue Cymbalta 20mg Psych on board Case discussed with Psych team that advise next step be lowering sertraline to 50mg while titrating duloxetine to 40mg daily. Duloxetine will likely need to be titrated to dosing of at least 60mg, if not higher, in or to expect the medication to target chronic pain concerns. Spoke to daughter and patient that would rather to titrate the Zoloft and Cymbalta during his next appointment Wednesday with psych since the Zoloft just increased and seems to help somehow with the anxiety Will try to avoid any Benzo outpatient CKD 3 Creatinine at baseline Stable DISPOSITION Plan to discharge today with home health Admission and Anticipated Discharge Date Admission Date: December 05, 2019 Subjective Pt was seen and examined Sitting in bed with no distress Pt said that he walked around today He said that his pain is between a 3-4 He said that he continues to feel anxious sometimes Denies any chest pain, palpitation, dizziness and SOB Physical Exam Physical Exam: General- No acute distress Head- atraumatic Eyes- PERRL, EOMI, ENT- oropharynx clear Neck- supple, no JVD Lungs- clear to auscultation Heart- regular rhythm; no murmur Abdomen- normal bowel sounds, soft, nontender Extremities- no calf tenderness Neuro- alert, oriented x 3; PERRL, EOMI; no facial palsy; no dysarthria Skin- warm & dry Results & Data Results & Data ([facility]) Vital Signs (Past 12 Hours) Vital Signs Temp Pulse Resp BP Pulse Ox 12/09/19 07:01 36.7 C 56 L 18 149/69 H 95 (1) Chronic back pain Back pain laterality: right Back pain location: low back pain Sciatica presence: unspecified whether sciatica present Qualified Code(s): M54.5 - Low back pain; G89.29 - Other chronic pain
[2019-12-10] MEDS ORDERED: methylPREDNISolone 4 MG TAB PO SCH (07:00)
--- NOTE | 2019-12-11 08:07 | Discharge Summary ---
Date of Service December 09, 2019 Admission HPI Per Admitting Provider The patient is a 74-year-old male with a past medical history including hypertension, history of CVA, sacroiliitis, kidney stones, CVA, lumbar spine fusion, intractable back pain, radiculopathy, lumbar stenosis with neurogenic claudication, hyperlipidemia, COPD, CHF and BPH. He presents to the emergency department with complaint of 8 years of back pain, has had multiple surgeries, and became anxious today. He denies any new pains. He has not had any recent travels or sick exposures. Admission Exam Per Admitting Provider The patient is awake, alert and oriented 3, well developed and well nourished, normocephalic and atraumatic, lying in bed and in no acute distress. HEENT--PERRL, EOMI, mucous membranes and oropharynx normal Neck--supple. No JVD. No bruits. Thyroid normal, trachea midline, no adenopathy. Heart--normal S1 and S2. No murmurs, rubs or gallops. Lungs--clear bilaterally, no respiratory distress, no accessory muscle use. Abdomen--normal bowel sounds and soft. Nontender. Nondistended. Obese Extremities--no cyanosis or clubbing. No edema. Dermatologic--normal skin turgor, normal color, no abnormal lymph nodes, no rash. Neurologic--cranial nerves II through XII grossly intact. Rheumatologic--exam limited due to back pain Psychiatric--normal affect. Principal Diagnosis Chronic back pain Lumbar spine stenosis with radicular pain Chronic A. fib: Anxiety disorder CKD 3 Discharge Exam General- No acute distress Head- atraumatic Eyes- PERRL, EOMI, ENT- oropharynx clear Neck- supple, no JVD Lungs- clear to auscultation Heart- regular rhythm; no murmur Abdomen- normal bowel sounds, soft, nontender Extremities- no calf tenderness Neuro- alert, oriented x 3; PERRL, EOMI; no facial palsy; no dysarthria Skin- warm & dry Discharge Data Allergies Allergy/AdvReac Type Severity Reaction Status Date / Time magnesium sulfate Allergy Severe HIVES Verified 12/03/19 16:05 adhesive Allergy Intermediate BANDAIDS- Verified 12/03/19 16:05 SKIN BREAKS OUT codeine Allergy Intermediate RASH Verified 12/03/19 16:05 Iodinated Contrast Media Allergy Intermediate NOTED Verified 12/03/19 16:05 IVP DYE - RASH latex Allergy Intermediate SKIN Verified 12/03/19 16:05 IRRITATION tolterodine Allergy Intermediate RASH Verified 12/03/19 16:05 Sulfa (Sulfonamide Allergy Unknown UNKNOWN Verified 12/03/19 16:05 Antibiotics) REACTION amoxicillin Allergy Pruritus Verified 12/03/19 16:05 Consultations 12/03/19 19:04 ED Decision to Admit Stat 12/03/19 20:41 Consult Case Management - Discharge Planning Routine 12/04/19 09:06 Consult Orthopedic Surgery Routine 12/04/19 18:57 Consult Pain Management Routine 12/08/19 08:00 Consult Psychiatry Routine Ordered Studies 12/03/19 14:36 MR lumbar spine wo con Stat XR chest 1V portable HISTORY: Shortness of breath. COMPARISON: Chest 10/28/2019. FINDINGS: The lungs are clear. Cardiac silhouette is normal in size. No pleural effusions. No pneumothorax. IMPRESSION: No acute process. ACT 112: Negative or not required by law. Electronically signed by: Jorge Casanova M.D. 12/03/2019 3:44 PM Dictated: 12/03/19 1544 Transcribed: 12/03/19 1544 LUMBAR SPINE MRI HISTORY: Low back pain. TECHNIQUE: Multiplanar multisequence MRI of the lumbar spine was performed without the use of contrast. COMPARISON: Lumbar spine MRI 05/25/2014. FINDINGS: For the purpose of the report the L5-S1 disc space will be located on axial image 34 of 37. Straightening of the lumbar spine. Posterior decompression fusion at L2-L3 with pedicle screws and rods. Moderate to severe disc space narrowing at L1-L2 which has progressed. Endplate signal abnormality at L1-L2 favors degenerative change. No significant loss of height to suggest a fracture. No subluxation. The L4-L5 vertebral bodies are fused. The conus terminates at the L1 level. Laminectomies from L2 through L5. Paravertebral soft tissues are within normal limits. Partially visualized T2 hyperintense lesions within the kidneys. These favor cysts. Bilateral sacroiliac screws are partially visualized. The left L2 pedicle screw tip appears to enter into the L1-L2 disc space. However, this is difficult to assess by MRI. Soft tissue edema at the laminectomy sites favors postoperative change. There is a disc spacer at L5-S1 and L2-L3. L1-L2: Broad-based posterior disc bulge with ligamentum and facet hypertrophy resulting in moderate central canal and severe bilateral neural foraminal narrowing. L2-L3: No significant central canal narrowing due to the posterior decompression. There is mild bilateral neural foraminal narrowing. L3-L4: No significant central canal narrowing due to the posterior decompression. There is mild bilateral neural foraminal narrowing. L4-L5: No significant central canal narrowing due to the posterior decompression . There is moderate bilateral neural foraminal narrowing. L5-S1: No significant central canal narrowing due to the posterior decompression. Moderate right and mild left neural foraminal narrowing. IMPRESSION: 1. Extensive postoperative changes as described above. 2. No fractures identified within the lumbar spine. 3. Endplate signal abnormality at L1-L2 favors long-standing degenerative change . 4. Moderate to severe disc space narrowing at L1-L2 which has progressed. There is an associated broad-based posterior disc bulge and ligamentum flavum and facet hypertrophy at this level resulting in moderate central canal narrowing. As also severe bilateral neural foraminal narrowing at this level. ACT 112: Negative or not required by law. Electronically signed by: Jorge Casanova M.D. 12/03/2019 5:10 PM Dictated: 12/03/191700 Transcribed: 12/03/191700 Hospital Course (1) Chronic back pain: Lumbar spine stenosis with radicular pain Presented with intractable back pain with radiation down to left hip left leg MRI of lumbar spine shows moderate to severe L1 spinal stenosis-possibly causing radiculopathy s/p trigger point injection by pain management Ortho on board, refrain from any nerve root blocks at this time. Continue Medrol dose pack steroid He would be a candidate for repeat trigger point injections in 60-90 days with recurrence or persistence of pain complaints as per pain management Continue Cymbalta 20mg HS Opiate therapy appears to be providing minimal benefit-patient was encouraged to discuss diminished reliance upon discharge with his pain service Patient follows with pain clinic at [place], has been on both long and short acting morphine Will need to wean off narcotic as per Pain clinic Continue PT/ OT with home health pain improves Chronic A. fib: rate control with atenolol Continue Pradaxa Anxiety disorder Continue Zoloft 100mg daily Continue Cymbalta 20mg Psych on board Case discussed with Psych team that advise next step be lowering sertraline to 50mg while titrating duloxetine to 40mg daily. Duloxetine will likely need to be titrated to dosing of at least 60mg, if not higher, in or to expect the medication to target chronic pain concerns. Spoke to daughter and patient that would rather to titrate the Zoloft and Cymbalta during his next appointment Wednesday with psych since the Zoloft just increased and seems to help somehow with the anxiety Will try to avoid any Benzo outpatient CKD 3 Creatinine at baseline Stable DISPOSITION Plan to discharge today with home health Total Time Total Time Spent Total Time Spent (In Minutes): 35 minutes Total Time Includes: Examination of the Patient, Discharge Planning, Medication Reconciliation, Communication With Other Providers and Other Discharge Plan Discharge Items Patient Disposition: Home - Home Health Services Reason For Visit: BACK PAIN Discharge Diagnosis: INTRACTABLE BACK PAIN L1 LUMBER SPINE STENOSIS WITH RADICULAR PAIN Condition on Discharge: Good Activity: Resume your previous activity Activity Comment: TOLERATED Non-emergency contact: Primary Care Provider Call non-emergency contact if: you have any medication questions Follow-up/Referrals: Cody Merida DO [Surgeon] - Ankit Mcgowan MD [Primary Care Provider] - Diet: Heart Healthy Addtl Attending Provider Instructions: FOLLOW UP WITH PAIN CLINIC TO WEAN OFF NARCOTIC PAIN MEDICATIONS Follow up with your primary care provider Dr. Mcgowan in 1 week (Please call for the appointment) Continue physical therapy and occupational therapy with home health services Follow up with pain management to repeat trigger point injections in 60-90 days with recurrence or persistence of pain complaints Follow up with outpatient psychiatry to titrate the Duloxetine Psych recommended to increase duloxetine to 40mg at next visit, then lowering sertraline to 50mg Duloxetine will likely need to be titrated to dosing of at least 60mg, if not higher, in or to expect the medication to target chronic pain concerns. Fall precaution Pending Studies at Discharge: No Stand-Alone Forms: [employer], Smoking Cessation Medications and DC Order Prescriptions: New sertraline 100 mg Tablet 100 mg PO QAM 30 Days Qty: 30 RF: 0 methylprednisolone 4 mg Tablet 1 dose PO UD Qty: 1 RF: 0 duloxetine 20 mg Capsule,Delayed Release(Dr/Ec) 20 mg PO HS 30 Days Qty: 30 RF: 0 Continued atenolol 25 mg Tablet 25 mg PO QAM RF: 0 simvastatin 20 mg Tablet 20 mg PO PM RF: 0 lisinopril 10 mg Tablet 10 mg PO QAM RF: 0 albuterol sulfate 90 mcg/actuation Hfa Aerosol Inhaler 1 - 2 puff INHALATION Q6H PRN (Reason: Shortness Of Breath) RF: 0 Pradaxa 150 mg Capsule 150 mg PO BID RF: 0 acetaminophen 500 mg Tablet 650 mg PO Q6H PRN (Reason: Pain) RF: 0 polyethylene glycol 3350 [Miralax] 17 gram/dose Powder 17 g PO QPM RF: 0 cholecalciferol (vitamin D3) [Vitamin D3] 25 mcg (1,000 unit) Capsule 25 mcg PO QAM RF: 0 Soothe XP 1-4.5 % Drops 1 drp ophthalmic (eye) QAM RF: 0 omega-3 fatty acids-fish oil [Fish Oil] 360-1,200 mg Capsule 1 cap PO QAM RF: 0 Glucosamine Chondroitin 550-30-1 mg Capsule 1 cap PO BID RF: 0 oxycodone 5 mg tablet 5 mg PO Q4 PRN (Reason: pain, severe) RF: 0 tamsulosin 0.4 mg Capsule 0.4 mg PO QAM RF: 0 furosemide 40 mg Tablet 40 mg PO DAILY RF: 0 morphine 15 mg tablet extended release 15 mg PO Q12 RF: 0 Discharge Orders: Discharge Order (Routine); Ordered 12/09/19 Ordered By: June Jaramillo Admission Data Admit Date/Time: 12/05/19 15:47 Attending Provider: June Jaramillo Admit Provider: Mk Mejia Primary Care Provider: Ankit Mcgowan Other Providers: Mk Mejia ; Cody Merida ; Lovely Higginbotham ; Mary Rojas ; Dara Patten Other Interventions: Discharge Summary Assessment (RN) Last Done: 12/09/19 15:36
== END 2019-12-09 15:37 | disposition home health service (06) | DRG 552 ==
LOC: ED 14:20 → 3E 14:20 → SUATTDRO 19:34 → 3E 20:21 → SUATTDRO 12-05 15:47
DX: I48.20 Chronic atrial fibrillation, unspecified; M48.061 Spinal stenosis, lumbar region without neurogenic claudication; M54.16 Radiculopathy, lumbar region; F41.9 Anxiety disorder, unspecified; N18.3 Chronic kidney disease, stage 3 (moderate); M96.1 Postlaminectomy syndrome, not elsewhere classified; I12.9 Hypertensive chronic kidney disease with stage 1 through stage 4 chronic kidney disease, or unspecified chronic kidney disease; Z87.891 Personal history of nicotine dependence